=== PATIENT | female | born 1940 | race Caucasian/White ===

== ENCOUNTER 2023-06-21 09:57 | Outpatient (OUT) | payer MEDICARE, SELFPAY ==
--- NOTE | 2023-06-21 09:59 | MM_ITS ---
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 Order #: [id number] CLICK HERE TO VIEW EXAM RADIOLOGY REPORT PROCEDURE: MM TOMOSYNTHESIS SCREENING BI COMPARISON: MG MAMM SCREEN 3D BROOK CAD, 06/03/2022. MG MAMM SCREEN 3D BROOK CAD, 05/10/2021. MG MAMM SCREEN BROOK W CAD, 05/05/2020. MG MAMM BROOK SCRN W CAD DIG, 05/11/2009. INDICATIONS: Z12.31 Calculator Name NCI Breast Cancer Risk Assessment Tool 5 Year Breast Cancer Risk 2.10% Lifetime Breast Cancer Risk 2.50% Personal Breast Cancer No Personal Ovarian Cancer No Treatments None Family Cancers Grandfather-maternal with lung cancer at age ~58. LOCATION: [facility] BREAST COMPOSITION: Heterogeneously dense,which may obscure small masses. FINDINGS: DIAGNOSTIC CATEGORY 2--BENIGN FINDING: RIGHT BREAST: No significant suspicious finding. Scattered benign-appearing calcifications are present. No significant change has occurred. LEFT BREAST: No significant suspicious finding. Scattered benign-appearing calcifications are present. No significant change has occurred. RECOMMENDATIONS: ROUTINE MAMMOGRAM AND CLINICAL EVALUATION IN 12 MONTHS. PLEASE NOTE: A NORMAL MAMMOGRAM DOES NOT EXCLUDE THE POSSIBILITY OF BREAST CANCER. A CLINICALLY SUSPICIOUS PALPABLE LUMP SHOULD BE BIOPSIED. Dictated by: Toribio Walker M.D. on 06/22/2023 at 14:20 Approved by: Toribio Walker M.D. on 06/22/2023 at 14:37
== END 2023-06-21 09:58 | disposition home or self-care (01) ==
LOC: MAMMO 09:58
PROVIDERS: PCP Family Medicine; Visit Provider Nurse Practitioner
DX: Z12.31 Encounter for screening mammogram for malignant neoplasm of breast (principal); Z80.1 Family history of malignant neoplasm of trachea, bronchus and lung
CPT/HCPCS: 77063; 77067

== ENCOUNTER 2023-07-07 07:47 | Outpatient (OUT) | payer MEDICARE, SELFPAY ==
[2023-07-07 08:10] LABS: Basophils Absolute Auto 0.1 10^3/uL (0.0-0.1); Basophils Percent Auto 1.1 % (0.2-2.0); Eosinophils Absolute Auto 0.2 10^3/uL (0.0-0.7); Eosinophils Percent Auto 3.9 % (0.9-7.0); Hematocrit 41.8 % (36.0-48.0); Hemoglobin 13.6 g/dL (12.0-16.0); Immature Granulocytes Abs Auto 0.01 10^3/uL (0.00-0.03); Immature Granulocytes Pct Auto 0.2 % (0.0-0.5); Lymphocytes Absolute Auto 1.2 10^3/uL (1.2-3.8); Lymphocytes Percent Auto 26.7 % (20.5-60.0); Mean Corpuscular HGB Conc 32.5 g/dL (29.9-35.2); Mean Corpuscular Hemoglobin 30.2 pg (26.7-34.0); Mean Corpuscular Volume 92.9 fL (81.0-99.0); Mean Platelet Volume 9.8 fL (9.5-13.5); Monocytes Absolute Auto 0.4 10^3/uL (0.3-0.8); Monocytes Percent Auto 8.7 % (1.7-12.0); Neutrophils Absolute Auto 2.6 10^3/uL (1.4-6.5); Neutrophils Percent Auto 59.4 % (43.0-75.0); Platelet Count 313 10^3/uL (150-450); Red Cell Distribution Width 12.4 % (11.0-15.0); White Blood Count 4.4 10^3/uL (4.0-11.0)
[2023-07-07 09:11] LABS: Alanine Aminotransferase 26 U/L (14-59); Albumin Level 3.6 g/dL (3.4-5.0); Alkaline Phosphatase 66 U/L (46-116); Anion Gap 11.6; Aspartate Amino Transferase 19 U/L (15-37); BUN Creatinine Ratio 24.2; Bilirubin Total 0.4 mg/dL (0.2-1.0); Calcium 9.5 mg/dL (8.5-10.1); Carbon Dioxide 31.6 mmol/L (21.0-32.0); Chloride 102 mmol/L (98-107); Estimated GFR (African America >60 (>=60); Estimated GFR (Non-African Ame 56 (>=60); Globulin 3.7 g/dL; Glucose 96 mg/dL (74-106); Potassium 4.2 mmol/L (3.5-5.1); Sodium 141 mmol/L (136-145); Total Protein 7.3 g/dL (6.4-8.2)
== END 2023-07-07 07:48 | disposition home or self-care (01) ==
LOC: LAB 07:48
PROVIDERS: PCP Family Medicine; Visit Provider Nurse Practitioner
DX: K21.9 Gastro-esophageal reflux disease without esophagitis (principal); M81.0 Age-related osteoporosis without current pathological fracture
CPT/HCPCS: 36415; 80053; 82306; 85025

== ENCOUNTER 2023-12-07 11:40 | Outpatient (REF) | payer MEDICARE, SELFPAY ==
[2023-12-07 12:01] LABS: Bilirubin Urine NEGATIVE (NEGATIVE); Blood Urine NEGATIVE (NEGATIVE); Clarity Urine CLEAR (CLEAR); Color Urine YELLOW (YELLOW); Glucose Urine UA NEGATIVE (NEGATIVE); Ketones Urine TRACE mg/dL (NEGATIVE); Leukocyte Esterase Urine TRACE (NEGATIVE); Nitrite Urine NEGATIVE (NEGATIVE); Protein Urine NEGATIVE (NEG/TRACE); Specific Gravity Urine 1.025 (1.005-1.025); Urobilinogen Urine 0.2 EU/dL (0.2-1.0); pH Urine 5.5 (5.0-9.0)
[2023-12-07 12:10] LABS: Urine Microscopic Indicated YES
[2023-12-07 12:15] LABS: Bacteria Urine TRACE #/HPF (NONE SEEN); Mucus Urine SMALL (NONE SEEN); RBC Urine NONE SEEN #/HPF (0-2)
[2023-12-07 12:16] LABS: Calcium Oxalate Crystals Urine FEW; Cast Seen? NONE SEEN #/LPF (NONE SEEN); Crystals Seen? Seen #/HPF (None Seen); Squamous Epithelial Cell Urine FEW #/LPF (NONE/RARE); Urine Culture Indicated ALREADY ORDERED
== END 2023-12-07 11:41 | disposition home or self-care (01) ==
LOC: LAB 11:40
PROVIDERS: PCP Family Medicine; Visit Provider Nurse Practitioner
DX: R30.0 Dysuria (principal)
CPT/HCPCS: 81001; 87086

== ENCOUNTER 2024-07-23 08:35 | Outpatient (OUT) | payer MEDICARE, SELFPAY ==
--- OUTSIDE RECORDS SUMMARY | 2024-07-23 08:39 | XMS_ITS | CCD ---
Author Organization [facility] Care Team Providers Care Physician'S Assistant Name Role Phone AICHHOLZ, EDUCATIONAL ASSISTANT TEACHER WINSTON Admitting Unavailable AICHHOLZ, EDUCATIONAL ASSISTANT TEACHER WINSTON Attending Unavailable NADDR NANCY CALI Primary Care Unavailable [place], DR DIETER Garcia Consulting Unavailable AICHHOLZ, MUSA WINSTON Consulting Unavailable AICHHOLZ, EDUCATIONAL ASSISTANT TEACHER WINSTON Admitting Unavailable AICHHOLZ, EDUCATIONAL ASSISTANT TEACHER WINSTON Attending Unavailable NADERER, DR NANCY Vigil Primary Care Unavailable AICHHOLZ, EDUCATIONAL ASSISTANT TEACHER WINSTON Consulting Unavailable MYRTLE Majano Attending Provider [phone] Brenda Majano Unavailable Brenda Majano Attending Unavailable Brenda Majano Admitting Unavailable AICHHOLZ, WINSTON Attending Unavailable AICHHOLZ, WINSTON Attending Unavailable AICHHOLZ, WINSTON Attending Unavailable ROLY AMAYA Attending Unavailable AICHHOLZ, WINSTON Referring Unavailable AICHHOLZ, WINSTON Attending Unavailable MONIQUE ROLY Attending Unavailable AICHHOLZ, WINSTON Referring Unavailable Allergies Allergy Classification Reported Allergen(s) Allergy Type Date of Onset Reaction(s) Facility (1 source) Amoxicillin Drug Allergy [facility] RxResults Other (1 source) Sulfamethoxazole / Trimethoprim Drug Allergy rash [facility] Other Medications Current Medications Medication Drug Class(es) Dates Sig (Normalized) Sig (Original) ascorbic acid 113 mg / copper gluconate 0.4 mg / docosahexaenoic acid 87.5 mg / eicosapentaenoic acid 163 mg / lutein 2.5 mg / tocopherol acetate 100 unt / zeaxanthin 0.5 mg / zinc oxide 17.4 mg oral capsule (1 source) Vitamin C PreserVision ARE DS 2 - as directed Orally Active Calcium (1 source) Phosphate Binder, Calcium Calcium Active lansoprazole 15 mg delayed release oral capsule (1 source) Proton Pump Inhibitor take 1 capsule by mouth once daily Prevacid 15 MG 1 capsule before a meal Orally Once a day Active loratadine 10 mg oral tablet (1 source) take 1 tablet by mouth once daily Claritin 10 MG 1 tablet Orally Once a day Active Completed/Discontinued Medications Medication Drug Class(es) Dates Sig (Normalized) Sig (Original) Ascorbic Acid / Beta Carotene / cuprous oxide / Lutein / sodium selenate / Vitamin E / Zinc Oxide (1 source) Vitamin C Ocuvite Not-Taking Aspirin (1 source) Platelet Aggregation Inhibitor, Nonsteroidal Anti-inflammatory Drug Baby Aspirin Not-Taking cephalexin 250 mg oral capsule (1 source) Cephalosporin Antibacterial Start: 06-09-2016 take 1 capsule by mouth every six hours Cephalexin 250 MG 1 capsule Orally Four times a day for 10 day(s) Jun, Not-Taking clindamycin 300 mg oral capsule (1 source) Lincosamide Antibacterial Start: 06-11-2016 Clindamycin HCl 300 MG 1 capsule Orally 7 for 7 days Jun, Not-Taking doxycycline monohydrate 100 mg oral tablet (1 source) Tetracycline-class Drug Start: 06-11-2016 take 1 tablet by mouth every twelve hours Doxycycline Monohydrate 100 MG 1 tablet Orally every 12 hrs for 7 days Jun, Not-Taking fluticasone propionate 0.05 mg/actuat metered dose nasal spray (1 source) Corticosteroid take 1 spray(s) nasal route once daily Flonase 50 MCG/ACT 1 spray in each nostril Nasally Once a day Not-Taking Mupirocin (1 source) RNA Synthetase Inhibitor Antibacterial Start: 03-07-2016 Bactroban 2 % 1 application to affected area Externally bid for 7 days Mar, Not-Taking Problems Problem Classification Problem Date Documented Da te Episodic/Chronic Esophageal disorders (4 sources) Gastro-esophageal reflux disease without esophagitis; Translations: [GERD WITHOUT ESOPHAGITIS] Onset: 05-31-2022 Chronic Genitourinary symptoms and ill-defined conditions (1 source) Frequency of micturition; Translations: [FREQUENCY OF MICTURITION] Onset: 06-01-2022 Episodic Other connective tissue disease (1 source) Pain in right foot Episodic Other connective tissue disease (1 source) Calcaneal spur, right foot Episodic Other screening for suspected conditions (not mental disorders or infectious disease) (4 sources) Encounter for screening mammogram for malignant neoplasm of breast; Translations: [ENC SCR MAMMO MALIG NEOPLASM BREAST] Onset: 06-03-2022 Episodic Residual codes; unclassified (1 source) Family history of malignant neoplasm of trachea, bronchus and lung; Translations: [FAM HX MALIG NEOPLSM TRACH BRON LNG] Onset: 06-07-2022 Episodic Unclassified (1 source) Pain in right foot; Translations: [Pain in right foot] Onset: 04-05-2023 Results Test Name Value Interpretation Reference Range Facility XR foot RT min 3V*on 023 XR foot RT min 3V* [place] [address] XRay Report Signed Patient: Melida Lyman MR#: [id number] : 1940 Acct:[id number] Age/Sex: 83 / F ADM Date: 04/05/23 Loc: XDUCLY Room: Type: [facility] Attending Dr: Brenda IRAHETA Copies to: MYRTLE Larson Ordering Provider: MYRTLE Larson Date of Service: 04/05/23 XR/XR foot RT min 3V*: Pain of right heel 3 views right foot plain film COMPARISON:None HISTORY: Right foot pain for 2 days ACUTE FINDINGS: None DEGENERATIVE CHANGE: Mild degeneration with calcaneal spurring and likely incidental accessory navicular SOFT TISSUE FINDINGS: Unremarkable JOINT EFFUSION: None POSTOP CHANGES: None BONE MINERALIZATION: Adequate XR/XR foot RT min 3V* IMPRESSION: Degenerative change. No acute findings. Impression dictated by: Jose Macias M.D.04/05/2023 2:22 PM Dictation Location: [place] [address] Transcribed By: [facility] 04/05/23 142 Dictated By: Jose Macias DO 04/05/23 142 Signed By: 04/05/23 142 Normal [facility] XR foot RT min 3V* [facility] Other XR foot RT min 3V* [facility] Other XR foot RT min 3V* [address] [place] RxResults Other XR foot RT min 3V* GABINO Henriquez [address] RxResults Other XR foot RT min 3V* XRay Report RxResults Other XR foot RT min 3V* Signed RxResults Other XR foot RT min 3V* Patient: Melida Lyman MR#: [id number] RxResults Other XR foot RT min 3V* : 1940 Acct:[id number] RxResults Other XR foot RT min 3V* Age/Sex: 83 / F ADM Date: 04/05/23 [facility] Other XR foot RT min 3V* Loc: XDUCLY Room: Type: [facility] RxResults Other XR foot RT min 3V* Attending Dr: Brenda IRAHETA RxResults Other XR foot RT min 3V* Copies to: MYRTLE Larson [facility] Other XR foot RT min 3V* Ordering Provider: MYRTLE Larson [facility] Other XR foot RT min 3V* Date of Service: 04/05/23 [facility] Other XR foot RT min 3V* XR/XR foot RT min 3V*: Pain of right heel RxResults Other XR foot RT min 3V* 3 views right foot plain film RxResults Other XR foot RT min 3V* COMPARISON:None [employer] Other XR foot RT min 3V* HISTORY: Right foot pain for 2 days RxResults Other XR foot RT min 3V* ACUTE FINDINGS: None RxResults Other XR foot RT min 3V* DEGENERATIVE CHANGE: Mild degeneration with calcaneal spurring and likely incidental accessory Rx[facility] Other XR foot RT min 3V* navicular RxResults Other XR foot RT min 3V* SOFT TISSUE FINDINGS: Unremarkable RxResults Other XR foot RT min 3V* JOINT EFFUSION: None RxResults Other XR foot RT min 3V* POSTOP CHANGES: None RxResults Other XR foot RT min 3V* BONE MINERALIZATION: Adequate RxResults Other XR foot RT min 3V* XR/XR foot RT min 3V* RxResults Other XR foot RT min 3V* IMPRESSION: Degenerative change. No acute findings. RxResults Other XR foot RT min 3V* Impression dictated by: Jose Macias M.D.04/05/2023 2:22 PM RxResults Other XR foot RT min 3V* Dictation Location: [place] [address] RxResults Other XR foot RT min 3V* Transcribed By: PWS 04/05/23 [facility] RxResults Other XR foot RT min 3V* Dictated By: Jose Macias DO 04/05/23 [facility] RxResults Other XR foot RT min 3V* Signed By: RxResults Other XR foot RT min 3V* 04/05/23 [facility] [place] Other MG MAMM SCREEN 3D BROOK CADon 06-03-2022 MG MAMM SCREEN 3D BROOK CAD Patient: MELIDA LYMAN Exam Date: 06/03/2022 : 1940 Gender:F Ordering : MUSA WINSTON [facility] Admission #: [id number] Family : Order #: [id number] CLICK HERE TO VIEW EXAM RADIOLOGY REPORT PROCEDURE: MAMMOGRAM SCREENING 3D BILATERAL CAD COMPARISON: MG MAMM SCREEN 3D BROOK CAD, 05/10/2021. MG MAMM SCREEN BROOK W CAD, 05/05/2020. INDICATIONS: Screening mammography Calculator Name NCI Breast Cancer Risk Assessment Tool 5 Year Breast Cancer Risk 2.20% Lifetime Breast Cancer Risk 2.90% Personal Breast Cancer No Personal Ovarian Cancer No Treatments None Family Cancers Grandfather-maternal with lung cancer at age 58. LOCATION: [facility] BREAST COMPOSITION: Heterogeneously dense,which may obscure small masses. FINDINGS: DIAGNOSTIC CATEGORY 2--BENIGN FINDING. NO CHANGE FROM COMPARISON. Scattered benign-appearing calcifications are present. Scattered benign-appearing lymph nodes are present. RIGHT BREAST: No significant suspicious finding. LEFT BREAST: No significant suspicious finding. RECOMMENDATIONS: ROUTINE MAMMOGRAM AND CLINICAL EVALUATION IN 12 MONTHS. PLEASE NOTE: A NORMAL MAMMOGRAM DOES NOT EXCLUDE THE POSSIBILITY OF BREAST CANCER. A CLINICALLY SUSPICIOUS PALPABLE LUMP SHOULD BE BIOPSIED. Dictated by: Dieter Cannon MD on 06/03/2022 at 13:39 Approved by: Dieter Cannon MD on 06/03/2022 at 13:40 [facility] CBC AUTO DIFFon 05-31-2022 BASO # 0.0 103/ul Normal 0.0-0.1 [facility] Comment on above: Performed By: #### C BC #### [facility] [address] [place] [address] Dr. Kendall Rachel Basophils/100 WBC (Bld) 1.0 % Normal 0.2-2.0 [facility] Comment on above: Performed By: #### C BC #### [facility] [address] [place] [address] Dr. Kendall Rachel EO # 0.1 103/ul Normal 0.0-0.7 [facility] Comment on above: Performed By: #### C BC #### [facility] [address] [place] [address] Dr. Kendall Rachel Eosinophils/100 WBC (Bld) 2.6 % Normal 0.9-7.0 [facility] Comment on above: Performed By: #### C BC #### [facility] [address] [place] [address] Dr. Kendall Rachel Erythrocyte distribution width (RBC) [Ratio] 12.9 % Normal 11.0-15.0 [facility] Comment on above: Performed By: #### C BC #### [facility] [address] [place] [address] Dr. Kendall Rachel Hematocrit (Bld) [Volume fraction] 40.3 % Normal 36.0-48.0 [facility] Comment on above: Performed By: #### C BC #### [facility] [address] [place] [address] Dr. Kendall Rachel Hemoglobin (Bld) [Mass/Vol] 13.1 g/dL Normal 12.0-16.0 [facility] Comment on above: Performed By: #### C BC #### [facility] [address] [place] [address] Dr. Kendall Rachel IG # 0.01 10e3/ul Normal 0.00-0.03 [facility] Comment on above: Performed By: #### C BC #### [facility] [address] [place] [address] Dr. Kendall Rachel IG % 0.2 % Normal 0.0-0.5 [facility] Comment on above: Performed By: #### C BC #### [facility] [address] [place] [address] Dr. Kendall Rachel LYMPH # 1.0 103/ul Critically low 1.2-3.8 [facility] Comment on above: Performed By: #### C BC #### [facility] [address] [place] [address] Dr. Kendall Rachel Lymphocytes/100 WBC (Bld) 23.9 % Normal 20.5-60.0 [facility] Comment on above: Performed By: #### C BC #### [facility] [address] [place] [address] Dr. Kendall Rachel MANUAL DIFF REQ NO Normal [facility] Comment on above: Performed By: #### C BC #### [facility] [address] [place] [address] Dr. Kendall Rachel MCH (RBC) [Entitic mass] 29.8 pg Normal 26.7-34.0 [facility] Comment on above: Performed By: #### C BC #### [facility] [address] [place] [address] Dr. Kendall Rachel MCHC (RBC) [Mass/Vol] 32.5 g/dL Normal 29.9-35.2 [facility] Comment on above: Performed By: #### C BC #### [facility] [address] [place] [address] Dr. Kendall Rachel MCV (RBC) [Entitic vol] 91.8 fL Normal 81.0-99.0 [facility] Comment on above: Performed By: #### C BC #### [facility] [address] [place] [address] Dr. Kendall Rachel MONO # 0.4 103/ul Normal 0.3-0.8 [facility] Comment on above: Performed By: #### C BC #### [facility] [address] [place] [address] Dr. Kendall Rachel Monocytes/100 WBC (Bld) 8.6 % Normal 1.7-12.0 [facility] Comment on above: Performed By: #### C BC #### [facility] [address] [place] [address] Dr. Kendall Rachel NEUT # 2.7 103/ul Normal 1.4-6.5 [facility] Comment on above: Performed By: #### C BC #### [facility] [address] [place] [address] Dr. Kendall Rachel Neutrophils/100 WBC (Bld) 63.7 % Normal 43.0-75.0 [facility] Comment on above: Performed By: #### C BC #### [facility] [address] [place] [address] Dr. Kendall Rachel Platelet mean volume (Bld) [Entitic vol] 10.9 fL Normal 9.5-13.5 [facility] Comment on above: Performed By: #### C BC #### [facility] [address] [place] [address] Dr. Kendall Rachel PLT 300 103/ul Normal 150-450 [facility] Comment on above: Performed By: #### C BC #### [facility] [address] [place] [address] Dr. Kendall Rachel RBC 4.39 106/ul Normal 4.20-5.40 [facility] Comment on above: Performed By: #### C BC #### [facility] [address] [place] [address] Dr. Kendall Rachel WBC 4.2 103/ul Normal 4.0-11.0 [facility] Comment on above: Performed By: #### C BC #### [facility] [address] [place] [address] Dr. Kendall Rachel PROF 14(COMP METB)on 022 Albumin [Mass/Vol] 3.6 g/dL Normal 3.4-5.0 [facility] Comment on above: Performed By: #### C MP #### [facility] [address] [place] [address] Dr. Kendall Rachel Albumin/Globulin [Mass ratio] 1.1 {ratio} Normal [facility] Comment on above: Performed By: #### C MP #### [facility] [address] [place] [address] Dr. Kendall Rachel ALP [Catalytic activity/Vol] 74 U/L Normal 46-116 [facility] Comment on above: Performed By: #### C MP #### [facility] [address] [place] [address] Dr. Kendall Rachel ALT [Catalytic activity/Vol] 33 U/L Normal 14-59 [facility] Comment on above: Performed By: #### C MP #### [facility] [address] [place] [address] Dr. Kendall Rachel Anion gap [Moles/Vol] 10.3 mmol/L [facility] Comment on above: Performed By: #### C MP #### [facility] [address] [place] [address] [address] Kendall Rachel AST [Catalytic activity/Vol] 20 U/L Normal 15-37 [facility] Comment on above: Performed By: #### C MP #### [facility] [address] [place] [address] [address] Kendall Rachel Bilirubin [Mass/Vol] 0.4 mg/dL Normal 0.2-1.0 [facility] Comment on above: Performed By: #### C MP #### [facility] [address] [place] [address] [address] Kendall Rachel Calcium [Mass/Vol] 9.3 mg/dL Normal 8.5-10.1 [facility] Comment on above: Performed By: #### C MP #### [facility] [address] [place] [address] Dr. Kendall Rachel Chloride [Moles/Vol] 103 mmol/L Normal 98-107 [facility] Comment on above: Performed By: #### C MP #### [facility] [address] [place] [address] [address] Kendall Rachel CO2 [Moles/Vol] 30.8 mmol/L Normal 21.0-32.0 [facility] Comment on above: Performed By: #### C MP #### [facility] [address] [place] [address] Dr. Kendall Rachel Creatinine [Mass/Vol] 0.87 mg/dL Normal 0.55-1.02 [facility] Comment on above: Performed By: #### C MP #### [facility] [address] [place] [address] [address] Kendall Rachel EGFR-AF SURINAMESE >60 Normal >=60 [facility] Comment on above: Performed By: #### C MP #### [facility] [address] [place] [address] Dr. Kendall Rachel EGFR-NON AF SURINAMESE >60 Normal >=60 [facility] Comment on above: Performed By: #### C MP #### [facility] [address] [place] [address] Dr. Kendall Rachel Globulin (S) [Mass/Vol] 3.4 g/dL Normal [facility] Comment on above: Performed By: #### C MP #### [facility] [address] [address] [address] Kendall Rachel Glucose [Mass/Vol] 100 mg/dL Normal 74-106 [facility] Comment on above: Performed By: #### C MP #### [facility] [address] [address] [address] Kendall Rachel Potassium [Moles/Vol] 4.1 mmol/L Normal 3.5-5.1 [facility] Comment on above: Performed By: #### C MP #### [facility] [address] [address] [address] Kendall Rachel Protein [Mass/Vol] 7.0 g/dL Normal 6.4-8.2 [facility] Comment on above: Performed By: #### C MP #### [facility] [address] [address] [address] Kendall Rachel Sodium [Moles/Vol] 140 mmol/L Normal 136-145 [facility] Comment on above: Performed By: #### C MP #### [facility] [address] [place] [address] Dr. Kendall Rachel Urea nitrogen [Mass/Vol] 23.0 mg/dL Critically high 7.0-18.0 [facility] Comment on above: Performed By: #### C MP #### [facility] [address] [address] [address] Kendall Rachel Urea nitrogen/Creatinin e [Mass ratio] 26.4 mg/mg [facility] Comment on above: Performed By: #### C MP #### [facility] [address] [place] [address] Dr. Kendall Rachel UA RANDOM W/MICROSCOPICon BACTERIA NONE SEEN Normal NONE SEEN [facility] Comment on above: Performed By: #### U AMIC #### [facility] [address] [place] [address] Dr. Kendall Rachel Bilirubin Ql (U) Negative Normal NEGATIVE [facility] Comment on above: Performed By: #### U AMIC #### [facility] [address] [place] [address] Dr. Kendall Rachel CAST NONE SEEN Normal NONE SEEN [facility] Comment on above: Performed By: #### U AMIC #### [facility] [address] [address] [address] Kendall Rachel Clarity (U) CLEAR Normal CLEAR [facility] Comment on above: Performed By: #### U AMIC #### [facility] [address] [address] [address] Kendall Rachel Color (U) YELLOW Normal YELLOW [facility] Comment on above: Performed By: #### U AMIC #### [facility] [address] [place] [address] Dr. Kendall Rachel Crystals LM Nom (Urine sed) NONE SEEN Normal NONE SEEN [facility] Comment on above: Performed By: #### U AMIC #### [facility] [address] [place] [address] Dr. Kendall Rachel Epithelial cells LM Ql (Urine sed) RARE Normal NONE SEEN /RARE [facility] Comment on above: Performed By: #### U AMIC #### [facility] [address] [place] [address] Dr. Kendall Rachel Glucose Ql (U) Negative Normal NEGATIVE [facility] Comment on above: Performed By: #### U AMIC #### [facility] [address] [address] [address] Kendall Rachel Hemoglobin Ql (U) Negative Normal NEGATIVE [facility] Comment on above: Performed By: #### U AMIC #### [facility] [address] [address] [address] Kendall Rachel Ketones Ql (U) Negative Normal NEGATIVE [facility] Comment on above: Performed By: #### U AMIC #### [facility] [address] [place] [address] Dr. Kendall Rachel LEUKOCYTES TRACE Abnormal NEGATIVE [facility] Comment on above: Performed By: #### U AMIC #### [facility] [address] [address] [address] Kendall Rachel MUCOUS TRACE Abnormal NONE SEEN [facility] Comment on above: Performed By: #### U AMIC #### [facility] [address] [address] [address] Kendall Rachel Nitrite Ql (U) Negative Normal NEGATIVE [facility] Comment on above: Performed By: #### U AMIC #### [facility] [address] [address] [address] Kendall Rachel pH (U) 7.0 [pH] Normal 5-9 [facility] Comment on above: Performed By: #### U AMIC #### [facility] [address] [place] [address] Dr. Kendall Rachel RBC 0-2 Normal 0-2 [facility] Comment on above: Performed By: #### U AMIC #### [facility] [address] [place] [address] Dr. Kendall Rachel SPEC GRAVITY 1.010 Normal 1.005-<=1.025 [facility] Comment on above: Performed By: #### U AMIC #### [facility] [address] [place] [address] Dr. Kendall Rachel UA PROTEIN Negative Normal NEGATIVE/ TRACE [facility] Comment on above: Performed By: #### U AMIC #### [facility] [address] [place] [address] Dr. Kendall Rachel Urobilinogen Qn (U) 0.2 {Sagrario'U}/dL Normal 0.2 - 1.0 [facility] Comment on above: Performed By: #### U AMIC #### [facility] [address] [place] [address] Dr. Kendall Rachel WBC 0-2 Abnormal NONE SEEN [facility] Comment on above: Performed By: #### U AMIC #### [facility] [address] [place] [address] Dr. Kendall Rachel Vital Signs Date Time Vital Sign Value Performing Clinician Facility 04-05-2023 13:35-0400 Body height 144.78 cm Brenda Juarez [facility] Other 04-05-2023 13:35-0400 Body mass index (BMI) [Ratio] 24.67 kg/m2 Brenda Majano Other [facility] Other 04-05-2023 13:35-0400 Body temperature 97.6 [degF] Brenda Majano Other [facility] Other 04-05-2023 13:35-0400 Body weight 51.71 kg Brenda Majano Other [facility] Other 04-05-2023 13:35-0400 Diastolic blood pressure 79 mm[Hg] Brenda Majano Other [facility] Other 04-05-2023 13:35-0400 Respiratory rate 18 /min Brenda Majano Other [facility] Other 04-05-2023 13:35-0400 SaO2% (BldA) [Mass fraction] 98 % Brenda Majano Other [facility] Other 04-05-2023 13:35-0400 Systolic blood pressure 171 mm[Hg] Brenda Majano Other [facility] Other Encounters Encounter Date Encounter Type Care Provider Facility Start: 01-19-2024 End: 01-19-2024 ambulatory ROLY AMAAY Not Available Start: 01-17-2024 End: 01-17-2024 ambulatory WINSTON AICHHOLZ Not Available Start: 01-05-2024 End: 01-05-2024 ambulatory ROLY AMAYA Not Available Start: 12-27-2023 End: 12-27-2023 ambulatory WINSTON AICHHOLZ Not Available Start: 12-13-2023 End: 12-13-2023 ambulatory WINSTON PACHECO Not Available Start: 12-05-2023 End: 12-05-2023 ambulatory WINSTON PACHECO Not Available Start: 04-05-2023 End: 04-05-2023 ambulatory Brenda Gretel Facility:[facility] Start: 04-05-2023 End: 04-05-2023 Patient encounter procedure INSIDE CHANNEL ACCOUNT MANAGER-C Brenda Majano Work Phone: [facility] Work Phone: Start: 04-05-2023 End: 04-05-2023 ambulatory INSIDE CHANNEL ACCOUNT MANAGER-C Brenda Gretel Work Phone: [facility] Work Phone: Start: 04-05-2023 Office outpatient ne w 20 minutes Brenda Majano [facility] Start: 06-03-2022 End: 06-04-2022 ambulatory EDUCATIONAL ASSISTANT TEACHER WINSTON PACHECO Facility:[facility] Start: 05-31-2022 End: 06-01-2022 ambulatory EDUCATIONAL ASSISTANT TEACHER WINSTON PACHECO Facility:[facility] Procedures Date Procedure Procedure Detail Performing Clinician Start: 04-05-2023 X-ray of right foot INSIDE CHANNEL ACCOUNT MANAGER- C Brenda Majano Work Phone: Immunizations Immunization Date Immunization Notes Care Provider Sudhakar ibrahim 06-11-2016 tetanus toxoid, reduced diphtheria toxoid, and acellular pertussis vaccine, adsorbed Brenda Majano Other [facility] Other Payers Date Payer Category Payer Medicare [id number] 2023 Self-pay 1959 Unknown [id number] 1940 Unknown [id number] 2.16.84 [id number] 1940 Unknown [id number] 2.16.84 [id number] 1940 Unknown [id number] 2.16.84 [id number] 1940 Unknown [id number] 2.16.84 [id number] 1940 Unknown [id number] 2.16.84 [id number] 1940 Unknown [id number] 2.16.84 [id number] 1940 Unknown [id number] [id number] [id number] 1940 Unknown [id number] [id number] [id number] Unknown [id number] Social History Date Type Detail Facility Tobacco smoking status NHIS Unknown if ever smoked [facility] Work Phone: Start: 1940 Sex Assigned At Female F [facility] Sex Assigned At Sex Assigned At Bir th RxResults Other Evaluation note 04-05-2023 Note Date & Type Note Facility 04-05-2023 Evaluation note Encounter Date Diagnosis Assessment Notes Apr, Pain of right heel (ICD-10 - M79.671) Apr, Calcaneal spur of right foot (ICD-10 - M77.31) Drink plenty fluids, get plenty of rest. Take Tylenol as needed for pain. Consider rolling your foot on a bottle of frozen water for comfort. Put an extra pad in the heel of your right shoe. 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 if no improvement in 5 to 7 days Apr, Other Calcaneal Spur material was printed RxResults Other Evaluation note Note Date & Type Note Facility Evaluation note No assessment information availa ble [facility] Work Phone: History general Narrative - Reported Note Date & Type Note Facility History general Narrative - Reported Type Medical History GERD (gastroesophageal reflux di sease) Medical History Seasonal allergic rhinitis Surgical History C section Surgical History hysterectomy RxResults Other Summary Purpose Family History No Family History Records FoundNo Family History Records FoundNo Family History Records Found Advance Directives No Advanced Directives Records FoundNo Advanced Directives Records FoundNo Advanced Directives Records Found Additional Source Comments INFORMATION SOURCE (unrecogn ized section and content) DATE CREATED AUTHOR 06/07/2022 [facility] DATE CREATED AUTHOR AUTHOR'S ORGANIZ ATION 05/27/2023 [facility] DATE CREATED AUTHOR AUTHOR'S ORGANIZ ATION 01/20/2024 [facility] [employer] Care Teams (unrecognized sec tion and content) Team Status: Inactive Member Role Status Dates MAGO LucasC Attending Provider Active Goals (unrecognized section and content) Goals may be documented in a n alternate sectionNo Information REASON FOR VISIT (unrecogniz ed section and content) right ankle, bottom of foot pain, walk alot FOR RECORDS PERTAINING TO PATIENTS WHO ARE OR HAVE BEEN ENROLLED IN A CHEMICAL DEPENDENCY/SUBSTANCEABUSE PROGRAM, SOME INFORMATION MAY BE OMITTED. This clinical summary was aggregated from multiple sources. Caution should be exercised in using it in the provision of clinical care. This summary normalizes information from multiple sources, and as a consequence, information in this document may materially change the coding, format and clinical context of patient data. In addition, data may be omitted in some cases. CLINICAL DECISIONS SHOULD BE BASED ON THE PRIMARY CLINICAL RECORDS. [employer] provides no warranty or guarantee of the accuracy or completeness of information in this document.
--- NOTE | 2024-07-23 08:40 | MM_ITS ---
Patient Name: PIPPA FELIPE MR#: [id number] : 1940 Exam Date: 07/23/2024 Ordering Doctor: MUSA Michelle CNP RADIOLOGY REPORT PROCEDURE: MM TOMOSYNTHESIS SCREENING BI COMPARISON: MG MAMM SCREEN 3D BROOK CAD, 06/03/2022. MM TOMOSYNTHESIS SCREENING BI, 06/21/2023. INDICATIONS: Screening Calculator Name NCI Breast Cancer Risk Assessment Tool 5 Year Breast Cancer Risk 1.90% Lifetime Breast Cancer Risk 2.20% Personal Breast Cancer No Personal Ovarian Cancer No Treatments None Family Cancers Grandfather-maternal with lung cancer at age ~58. LOCATION: [facility] BREAST COMPOSITION: The breasts are heterogeneously dense,which may obscure small masses. FINDINGS: DIAGNOSTIC CATEGORY 2--BENIGN FINDING. NO CHANGE FROM COMPARISON. Scattered benign-appearing nodules are present. Scattered benign-appearing calcifications are present. Scattered benign-appearing lymph nodes are present. RIGHT BREAST: No significant suspicious finding. LEFT BREAST: No significant suspicious finding. RECOMMENDATIONS: ROUTINE MAMMOGRAM AND CLINICAL EVALUATION IN 12 MONTHS. PLEASE NOTE: A NORMAL MAMMOGRAM DOES NOT EXCLUDE THE POSSIBILITY OF BREAST CANCER. A CLINICALLY SUSPICIOUS PALPABLE LUMP SHOULD BE BIOPSIED. Dictated by: Herbert Cannon MD on 07/23/2024 at 11:11 Approved by: Herbert Cannon MD on 07/23/2024 at 11:12
== END 2024-07-23 08:36 | disposition home or self-care (01) ==
LOC: MAMMO 08:36
PROVIDERS: PCP Family Medicine; Visit Provider Nurse Practitioner
DX: Z12.31 Encounter for screening mammogram for malignant neoplasm of breast (principal); Z80.1 Family history of malignant neoplasm of trachea, bronchus and lung
CPT/HCPCS: 77063; 77067

== ENCOUNTER 2024-07-26 08:03 | Outpatient (OUT) | payer MEDICARE, SELFPAY ==
--- OUTSIDE RECORDS SUMMARY | 2024-07-26 08:12 | XMS_ITS | CCD ---
Author Organization [facility] Care Team Providers Care Mounter Automatic Name Role Phone AICHHOLZ, DRYWALL HANGER FRAMER ROSEMARY Admitting Unavailable AICHHOLZ, DRYWALL HANGER FRAMER ROSEMARY Attending Unavailable DR NANCY LOVELACE Primary Care Unavailable WEST, DR DIETER Garcia Consulting Unavailable AICHHOLZ, DRYWALL HANGER FRAMER ROSEMARY Consulting Unavailable AICHHOLZ, DRYWALL HANGER FRAMER ROSEMARY Admitting Unavailable AICHHOLZ, DRYWALL HANGER FRAMER ROSEMARY Attending Unavailable NADEREDR NANCY Jenkins Primary Care Unavailable AICHHOLZ, DRYWALL HANGER FRAMER ROSEMARY Consulting Unavailable MYRTLE Majano Attending Provider Brenda Majano Unavailable Brenda Majano Attending Unavailable Gretel, Brenda Admitting Unavailable Aichholz MD OPHTHALMOLOGIST, Rosemary Unavailable Aichholz MD OPHTHALMOLOGIST, Rosemary Unavailable Unallocated , Noms Provider Primary Care Provi bruno AICHHOLZ, ROSEMARY Attending Unavailable AICHHOLZ, ROSEMARY Attending Unavailable AICHHOLZ, ROSEMARY Attending Unavailable ROLY AMAYA Attending Unavailable AICHHOLZ, ROSEMARY Referring Unavailable AICHHOLZ, ROSEMARY Attending Unavailable ESTHER AAMYAA Attending Unavailable AICHHOLZ, ROSEMARY Referring Unavailable AICHHOLZ, ROSEMARY Attending Unavailable Allergies Allergy Classification Reported Allergen(s) Allergy Type Date of Onset Reaction(s) Facility (4 sources) Amoxicillin Drug Allergy 4 rash, Hives [facility] (4 sources) Sulfamethoxazole / Trimethoprim Drug Allergy 4 rash, Hives [facility] [facility] Other Medications Current Medications Medication Drug Class(es) Dates Sig (Normalized) Sig (Original) ascorbic acid 113 mg / copper gluconate 0.4 mg / docosahexaenoic acid 87.5 mg / eicosapentaenoic acid 163 mg / lutein 2.5 mg / tocopherol acetate 100 unt / zeaxanthin 0.5 mg / zinc oxide 17.4 mg oral capsule (4 sources) Vitamin C Multiple Vitamins-Minerals (PreserVision AREDS 2) capsule as directed Orally Active PreserVision ARE DS 2 - as directed Orally Active azithromycin 250 mg oral tablet (2 sources) Macrolide Antimicrobial Start: 07-23-2024 azithromycin (Zithromax) 250 MG tablet Indications: Subacute frontal sinusitis 2 pills day #1, and then 1 pill day #2-#5 6 tablet 07/23/2024 Active Start: 07-23-2024 azithromycin ( Zithromax) 250 MG tablet Indications: Subacute frontal sinusitis 2 pills day #1, and then 1 pill day #2-#5 6 tablet 07/23/2024 Active Calcium (1 source) Phosphate Binder, Calcium Calciu m Active calcium carbonate 1500 mg oral tablet (3 sources) calcium carbonat e (Super Calcium) 1500 (600 Ca) MG tablet every 12 (twelve) hours Active clobetasol propionate 0.5 mg/ml topical cream (3 sources) Corticosteroid clobetasol (Deric vate) 0.05 % cream Apply 1 Application topically every 12 (twelve) hours Active ibuprofen 200 mg oral tablet (3 sources) Nonsteroidal Anti-inflammatory Drug ibuprofen 200 MG tablet every 12 (twelve) hours Active lansoprazole 15 mg delayed release oral capsule (4 sources) Proton Pump Inhibitor lansoprazo le (Prevacid) [address] capsule 1 (one) time each day at the same time Active loratadine 10 mg oral tablet (4 sources) loratadine (Clar itin) 10 MG tablet 1 (one) time each day at the same time Active Completed/Discontinued Medications Medication Drug Class(es) Dates [...] bid for 7 days Mar, Not-Taking Problems Active Problems Problem Classification Problem Date Documented Date Episodic/Chronic Esophageal disorders (9 sources) Gastro-esophageal reflux disease without esophagitis; Translations: [Gastroesophageal reflux disease without esophagitis] Onset: 05-31-2022 Chronic Genitourinary symptoms and ill-defined conditions (5 sources) Incontinence; Translations: [Mixed incontinence] Onset: 12-13-2023 12-13-2023 Chronic Immunizations and screening for infectious disease (4 sources) Needs influenza immunization; Translations: [Encounter for immunization] Onset: 07-23-2024 07-23-2024 Episodic Osteoporosis (5 sources) Senile osteoporosis; Translations: [Age-related osteoporosis without current pathological fracture] Onset: 12-13-2023 12-13-2023 Chronic Other connective tissue disease (1 source) Pain in right foot Episodic Other connective tissue disease (1 source) Calcaneal spur, right foot Episodic Other screening for suspected conditions (not mental disorders or infectious disease) (4 sources) Encounter for screening mammogram for malignant neoplasm of breast; Translations: [ENC SCR MAMMO MALIG NEOPLASM BREAST] Onset: 06-03-2022 Episodic Other upper respiratory disease (3 sources) Chronic rhinitis; Translations: [Chronic rhinitis] Onset: 12-13-2023 12-13-2023 Chronic Other upper respiratory infections (7 sources) Acute pansinusitis; Translations: [Acute pansinusitis, unspecified] Onset: 12-27-2023 Resolved: 07-23-2024 07-23-2024 Episodic Residual codes; unclassified (1 source) Family history of malignant neoplasm of trachea, bronchus and lung; Translations: [FAM HX MALIG NEOPLSM TRACH BRON LNG] Onset: 06-07-2022 Episodic Retinal detachments; defects; vascular occlusion; and retinopathy (3 sources) Degenerative disorder of macula ; Translations: [Unspecified macular degeneration] Onset: 12-13-2023 12-13-2023 Chronic Spondylosis; intervertebral disc disorders; other back problems (3 sources) Degeneration of cervical intervertebral disc; Translations: [Other cervical disc degeneration, unspecified cervical region] Onset: 12-13-2023 12-13-2023 Chronic Unclassified (1 source) Pain in right foot; Translations: [Pain in right foot] Onset: 04-05-2023 Past or Other Problems Problem Classification Problem Date Documented Da te Episodic/Chronic Genitourinary symptoms and ill-defined conditions (4 sources) Frequency of micturition; Translations: [Dysuria] Onset: 06-01-2022 12-05-2023 Episodic Mood disorders (2 sources) Mood disorders Onset: 07-23-2024 07-23-2024 Other female genital disorders (3 sources) Leukoplakia of vulva; Translations: [Circumscribed scleroderma] Onset: 12-13-2023 12-13-2023 Episodic Sprains and strains (6 sources) Strain of left trapezius muscle; Translations: [Strain of other muscles, fascia and tendons at shoulder and upper arm level, left arm, subsequent encounter] Onset: 12-05-2023 Resolved: 12-13-2023 12-13-2023 Episodic Results Test Name Value Interpretation Reference Range Facility XR foot RT min 3V*on 023 XR foot RT min 3V* [facility] [address] XRay Report Signed Patient: Melida Lyman MR#: [id number] : 1940 Acct:[id number] Age/Sex: 83 / F ADM Date: 04/05/23 Loc: XDUCLY Room: Type: [facility] Attending Dr: Brenda MERCEDESC Copies to: MYRTLE Larson Ordering Provider: MYRTLE [...] Jose Macias M.D.04/05/2023 2:22 PM Dictation Location: [place] [address] Transcribed By: [facility] 04/05/23 142 Dictated By: Jose Macias DO 04/05/23 142 Signed By: 04/05/23 142 [facility] XR foot RT min 3V* [facility] [employer] Other XR foot RT min 3V* [facility] [employer] Other XR foot RT min 3V* [address] [place] [address] [employer] Other XR foot RT min 3V* [place] [address] [employer] Other XR foot RT min 3V* XRay Report [facility] Other XR foot RT min 3V* Signed [facility] Other XR foot RT min 3V* Patient: Melida Lyman MR#: [id number] [facility] Other XR foot RT min 3V* : 1940 Acct:[id number] [facility] Other XR foot RT min 3V* Age/Sex: 83 / F ADM Date: 04/05/23 [facility] Other XR foot RT min 3V* Loc: XDUCLY Room: Type: [facility] [employer] Other XR foot RT min 3V* Attending Dr: Brenda IRAHETA [facility] Other XR foot RT min 3V* Copies to: MYRTLE Larson [facility] Other XR foot RT min 3V* Ordering Provider: MYRTLE Larson [facility] Other XR foot RT min 3V* Date of Service: 04/05/23 [facility] Other XR foot RT min 3V* XR/XR foot RT min 3V*: Pain of right heel [employer] Other XR foot RT min 3V* 3 views right foot plain film [employer] Other XR foot RT min 3V* COMPARISON:None [place] [employer] Other XR foot RT min 3V* HISTORY: Right foot pain for 2 days [employer] Other XR foot RT min 3V* ACUTE FINDINGS: None [employer] Other XR foot RT min 3V* DEGENERATIVE CHANGE: Mild degeneration with calcaneal spurring and likely incidental accessory [employer] Other XR foot RT min 3V* navicular [facility] Other XR foot RT min 3V* SOFT TISSUE FINDINGS: Unremarkable [employer] Other XR foot RT min 3V* JOINT EFFUSION: None [employer] Other XR foot RT min 3V* POSTOP CHANGES: None [employer] Other XR foot RT min 3V* BONE MINERALIZATION: Adequate [facility] Other XR foot RT min 3V* XR/XR foot RT min 3V* [employer] Other XR foot RT min 3V* IMPRESSION: Degenerative change. No acute findings. [facility] Other XR foot RT min 3V* Impression dictated by: Jose Macias M.D.04/05/2023 2:22 PM [facility] Other XR foot RT min 3V* Dictation Location: [place] [address] [employer] Other XR foot RT min 3V* Transcribed By: PWS 04/05/23 [facility] [employer] Other XR foot RT min 3V* Dictated By: Jose Macias DO 04/05/23 [facility]0 [employer] Other XR foot RT min 3V* Signed By: [employer] Other XR foot RT min 3V* 04/05/[address] [place] [address] [employer] Other MG MAMM SCREEN 3D BROOK CADon 06-03-2022 MG MAMM SCREEN 3D BROOK CAD Patient: MELIDA LYMAN Exam Date: 06/03/2022 : 1940 Gender:F Ordering : MUSA MICHELLE [facility] Admission #: [id number] Family : Order #: [id number] CLICK HERE TO VIEW EXAM RADIOLOGY REPORT [...] lung cancer at age 58. LOCATION: [facility] BREAST COMPOSITION: Heterogeneously dense,which may obscure [...] Cannon MD on 06/03/2022 at 13:40 Normal [facility] CBC AUTO DIFFon 05-31-2022 BASO # 0.0 103/ul Normal 0.0-0.1 [facility] Comment on above: Performed By: #### C BC #### [facility] [address] [place] [address] Dr. Kendall Rachel Basophils/100 WBC (Bld) 1.0 % Normal 0.2-2.0 [facility] Comment on above: Performed By: #### C BC #### [facility] [address] [place] [address] Dr. Kendall Rachel EO # 0.1 103/ul Normal 0.0-0.7 [facility] Comment on above: Performed By: #### C BC #### [facility] [address] [place] [address] Dr. Kendall Rachel Eosinophils/100 WBC (Bld) 2.6 % Normal 0.9-7.0 [facility] Comment on above: Performed By: #### C BC #### [facility] [address] [place] [address] Dr. Kendall Rachel Erythrocyte distribution width (RBC) [Ratio] 12.9 % Normal 11.0-15.0 [facility] Comment on above: Performed By: #### C BC #### [facility] [address] [place] [address] Dr. Kendall Rachel Hematocrit (Bld) [Volume fraction] 40.3 % Normal 36.0-48.0 [facility] Comment on above: Performed By: #### C BC #### [facility] [address] [place] [address] Dr. Kendall Rachel Hemoglobin (Bld) [Mass/Vol] 13.1 g/dL Normal 12.0-16.0 [facility] Comment on above: Performed By: #### C BC #### [facility] [address] [place] [address] Dr. Kendall Rachel IG # 0.01 10e3/ul Normal 0.00-0.03 [facility] Comment on above: Performed By: #### C BC #### [facility] [address] [place] [address] Dr. Kendall Rachel IG % 0.2 % Normal 0.0-0.5 [facility] Comment on above: Performed By: #### C BC #### [facility] [address] [place] [address] Dr. Kendall Rachel LYMPH # 1.0 103/ul Critically low 1.2-3.[address] [facility] Comment on above: Performed By: #### C BC #### [facility] [address] [place] [address] Dr. Kendall Rachel Lymphocytes/100 WBC (Bld) 23.9 % Normal 20.5-60.0 [facility] Comment on above: Performed By: #### C BC #### [facility] [address] [place] [address] Dr. Kendall Rachel MANUAL DIFF REQ NO Normal [facility] Comment on above: Performed By: #### C BC #### [facility] [address] [place] [address] Dr. Kendall Rachel MCH (RBC) [Entitic mass] 29.8 pg Normal 26.7-34.0 [facility] Comment on above: Performed By: #### C BC #### [facility] [address] [place] [address] Dr. Kendall Rachel MCHC (RBC) [Mass/Vol] 32.5 g/dL Normal 29.9-35.2 [facility] Comment on above: Performed By: #### C BC #### [facility] [address] [place] [address] Dr. Kendall Rachel MCV (RBC) [Entitic vol] 91.8 fL Normal 81.0-99.0 [facility] Comment on above: Performed By: #### C BC #### [facility] [address] [place] [address] Dr. Kendall Rachel MONO # 0.4 103/ul Normal 0.3-0.8 [facility] Comment on above: Performed By: #### C BC #### [facility] [address] [place] [address] Dr. Kendall Rachel Monocytes/100 WBC (Bld) 8.6 % Normal 1.7-12.0 [facility] Comment on above: Performed By: #### C BC #### [facility] [address] [place] [address] Dr. Kendall Rachel NEUT # 2.7 103/ul Normal 1.4-6.5 [facility] Comment on above: Performed By: #### C BC #### [facility] [address] [place] [address] Dr. Kendall Rachel Neutrophils/100 WBC (Bld) 63.7 % Normal 43.0-75.0 [facility] Comment on above: Performed By: #### C BC #### [facility] [address] [place] [address] Dr. Kendall Rachel Platelet mean volume (Bld) [Entitic vol] 10.9 fL Normal 9.5-13.5 [facility] Comment on above: Performed By: #### C BC #### [facility] [address] [place] [address] Dr. Kendall Rachel PLT 300 103/ul Normal 150-450 [facility] Comment on above: Performed By: #### C BC #### [facility] [address] [place] [address] Dr. Kendall Rachel RBC 4.39 106/ul Normal 4.20-5.40 [facility] Comment on above: Performed By: #### C BC #### [facility] [address] [place] [address] Dr. Kendall Rachel WBC 4.2 103/ul Normal 4.0-11.0 [facility] Comment on above: Performed By: #### C BC #### [facility] [address] [place] [address] Dr. Kendall Rachel PROF 14(COMP METB)on 022 Albumin [Mass/Vol] 3.6 g/dL Normal 3.4-5.0 [facility] Comment on above: Performed By: #### C MP #### [facility] [address] [place] [address] Dr. Kendall Rachel Albumin/Globulin [Mass ratio] 1.1 {ratio} Normal [facility] Comment on above: Performed By: #### C MP #### [facility] [address] [place] [address] [address] Kendall Rachel ALP [Catalytic activity/Vol] 74 U/L Normal 46-116 [facility] Comment on above: Performed By: #### C MP #### [facility] [address] [place] [address] Dr. Kendall Rachel ALT [Catalytic activity/Vol] 33 U/L Normal 14-59 [facility] Comment on above: Performed By: #### C MP #### [facility] [address] [place] [address] Dr. Kendall Rachel Anion gap [Moles/Vol] 10.3 mmol/L Normal [facility] Comment on above: Performed By: #### C MP #### [facility] [address] [place] [address] Dr. Kendall Rachel AST [Catalytic activity/Vol] 20 U/L Normal 15-37 [facility] Comment on above: Performed By: #### C MP #### [facility] [address] [place] [address] Dr. Kendall Rachel Bilirubin [Mass/Vol] 0.4 mg/dL Normal 0.2-1.0 [facility] Comment on above: Performed By: #### C MP #### [facility] [address] [place] [address] Dr. Kendall Rachel Calcium [Mass/Vol] 9.3 mg/dL Normal 8.5-10.1 [facility] Comment on above: Performed By: #### C MP #### [facility] [address] [place] [address] Dr. Kendall Rachel Chloride [Moles/Vol] 103 mmol/L Normal 98-107 [facility] Comment on above: Performed By: #### C MP #### [facility] [address] [place] [address] [address] Kendall Rachel CO2 [Moles/Vol] 30.8 mmol/L Normal 21.0-32.0 [facility] Comment on above: Performed By: #### C MP #### [facility] [address] [place] [address] [address] Kendall Rachel Creatinine [Mass/Vol] 0.87 mg/dL Normal 0.55-1.02 [facility] Comment on above: Performed By: #### C MP #### [facility] [address] [place] [address] [address] Kendall Rachel EGFR-AF UKRAINIAN >60 Normal >=60 [facility] Comment on above: Performed By: #### C MP #### [facility] [address] [place] [address] Dr. Kendall Rachel EGFR-NON AF UKRAINIAN >60 Normal >=60 [facility] Comment on above: Performed By: #### C MP #### [facility] [address] [place] [address] [address] Kendall Rachel Globulin (S) [Mass/Vol] 3.4 g/dL Normal [facility] Comment on above: Performed By: #### C MP #### [facility] [address] [place] [address] [address] Kendall Rachel Glucose [Mass/Vol] 100 mg/dL Normal 74-106 [facility] Comment on above: Performed By: #### C MP #### [facility] [address] [place] [address] [address] Kendall Rachel Potassium [Moles/Vol] 4.1 mmol/L Normal 3.5-5.1 [facility] Comment on above: Performed By: #### C MP #### [facility] [address] [place] [address] [address] Kendall Rachel Protein [Mass/Vol] 7.0 g/dL Normal 6.4-8.2 [facility] Comment on above: Performed By: #### C MP #### [facility] [address] [place] [address] [address] Kendall Rachel Sodium [Moles/Vol] 140 mmol/L Normal 136-145 [facility] Comment on above: Performed By: #### C MP #### [facility] [address] [place] [address] Dr. Kendall Rachel Urea nitrogen [Mass/Vol] 23.0 mg/dL Critically high 7.0-18.0 [facility] Comment on above: Performed By: #### C MP #### [facility] [address] [place] [address] Dr. Kendall Rachel Urea nitrogen/Creatinin e [Mass ratio] 26.4 mg/mg Normal [facility] Comment on above: Performed By: #### C MP #### [facility] [address] [place] [address] Dr. Kendall Rachel UA RANDOM W/MICROSCOPICon BACTERIA NONE SEEN Normal NONE SEEN [facility] Comment on above: Performed By: #### U AMIC #### [facility] [address] [place] [address] Dr. Kendall Rachel Bilirubin Ql (U) Negative Normal NEGATIVE [facility] Comment on above: Performed By: #### U AMIC #### [facility] [address] [place] [address] Dr. Kendall Rachel CAST NONE SEEN Normal NONE [facility] Comment on above: Performed By: #### U AMIC #### [facility] [address] [place] [address] Dr. Kendall Rachel Clarity (U) CLEAR Normal CLEAR [facility] Comment on above: Performed By: #### U AMIC #### [facility] [address] [place] [address] Dr. Kendall Rachel Color (U) YELLOW Normal YELLOW [facility] Comment on above: Performed By: #### U AMIC #### [facility] [address] [place] [address] Dr. Kendall Rachel Crystals LM Nom (Urine sed) NONE SEEN Normal NONE SEEN [facility] Comment on above: Performed By: #### U AMIC #### [facility] [address] [place] [address] Dr. Kendall Rachel Epithelial cells LM Ql (Urine sed) RARE Normal NONE SEEN /RARE [facility] Comment on above: Performed By: #### U AMIC #### [facility] [address] [place] [address] [address] Kendall Rachel Glucose Ql (U) Negative Normal NEGATIVE [facility] Comment on above: Performed By: #### U AMIC #### [facility] [address] [place] [address] [address] Kendall Rachel Hemoglobin Ql (U) Negative Normal NEGATIVE [facility] Comment on above: Performed By: #### U AMIC #### [facility] [address] [place] [address] [address] Kendall Rachel Ketones Ql (U) Negative Normal NEGATIVE [facility] Comment on above: Performed By: #### U AMIC #### [facility] [address] [place] [address] [address] Kendall Rachel LEUKOCYTES TRACE Abnormal NEGATIVE [facility] Comment on above: Performed By: #### U AMIC #### [facility] [address] [place] [address] [address] Kendall Rachel MUCOUS TRACE Abnormal NONE SEEN [facility] Comment on above: Performed By: #### U AMIC #### [facility] [address] [place] [address] [address] Kendall Rachel Nitrite Ql (U) Negative Normal NEGATIVE [facility] Comment on above: Performed By: #### U AMIC #### [facility] [address] [place] [address] [address] Kendall Rachel pH (U) 7.0 [pH] Normal 5-9 [facility] Comment on above: Performed By: #### U AMIC #### [facility] [address] [place] [address] [address] Kendall Rachel RBC 0-2 Normal 0-2 [facility] Comment on above: Performed By: #### U AMIC #### [facility] [address] [place] [address] [address] Kendall Rachel SPEC GRAVITY 1.010 Normal 1.005-<=1.025 [facility] Comment on above: Performed By: #### U AMIC #### [facility] [address] [place] [address] [address] Kendall Rachel UA PROTEIN Negative Normal NEGATIVE/ TRACE [facility] Comment on above: Performed By: #### U AMIC #### [facility] [address] [place] [address] [address] Kendall Rachel Urobilinogen Qn (U) 0.2 {Sagrario'U}/dL Normal 0.2 - 1.0 [facility] Comment on above: Performed By: #### U AMIC #### [facility] [address] [place] [address] [address] Kendall Rachel WBC 0-2 Abnormal NONE SEEN [facility] Comment on above: Performed By: #### U AMIC #### [facility] [address] [place] [address] [address] Kendall Rachel Vital Signs Date Time Vital Sign Value Performing Clinician Facility 07-23-2024 10:040 Body height 146.1 cm Rosemary Michelle MD OPHTHALMOLOGIST Work Phone: [facility] 07-23-2024 10:14040 Body mass index (BMI) [Ratio] 24.37 kg/m2 Rosemary Michelle MD OPHTHALMOLOGIST Work Phone: [facility] 07-23-2024 10:14040 Body temperature 97.11 [degF] Rosemary Michelle MD OPHTHALMOLOGIST Work Phone: [facility] 07-23-2024 10:14040 Body weight 51.98 kg Rosemary Michelle MD OPHTHALMOLOGIST Work Phone: [facility] 07-23-2024 10:14-040 Diastolic blood pressure 68 mm[Hg] Rosemary Michelle MD OPHTHALMOLOGIST Work Phone: [facility] 07-23-2024 10:14-0400 Heart rate 76 /min Rosemary Michelle MD OPHTHALMOLOGIST Work Phone: [facility] 07-23-2024 10:14-0400 Respiratory rate 18 /min Rosemary Michelle MD OPHTHALMOLOGIST Work Phone: [facility] [employer] 07-23-2024 10:14-0400 SaO2% (BldA) [Mass fraction] 97 % Rosemary Michelle MD OPHTHALMOLOGIST Work Phone: [facility] [employer] 07-23-2024 10:14-0400 Systolic blood pressure 138 mm[Hg] Rosemary Michelle MD OPHTHALMOLOGIST Work Phone: [facility] 04-05-2023 13:35-0400 Body height 144.78 cm Brenda Gretel Other [employer] Other 04-05-2023 13:35-0400 Body mass index (BMI) [Ratio] 24.67 kg/m2 Brenda Gretel Other [employer] Other 04-05-2023 13:35-0400 Body temperature 97.6 [degF] Brenda Gretel Other [employer] Other 04-05-2023 13:35-0400 Body weight 51.71 kg Brenda Gretel Other [employer] Other 04-05-2023 13:35-0400 Diastolic blood pressure 79 mm[Hg] Brenda Gretel Other [employer] Other 04-05-2023 13:35-0400 Respiratory rate 18 /min Brenda Gretel Other [employer] Systems Other 04-05-2023 13:35-0400 SaO2% (BldA) [Mass fraction] 98 % Brenda Gretel Other [employer] Other 04-05-2023 13:35-0400 Systolic blood pressure 171 mm[Hg] Brenda Gretel Other Real Time Translation [employer] Other Encounters Encounter Date Encounter Type Care Provider Facility Start: 07-23-2024 End: 07-23-2024 Bamboo flowsheet Rosemary Miguel Angel MD OPHTHALMOLOGIST Work Phone: [facility] Start: 07-23-2024 End: 07-23-2024 Bamboo flowsheet Rosemary Miguel Angel MD OPHTHALMOLOGIST Work Phone: [facility] Start: 07-23-2024 End: 07-23-2024 Patient encounter procedure Rosemary Josemaxkayz MD OPHTHALMOLOGIST Work Phone: [facility] Comment on above: Encounter for subseq uent annual wellness visit (AWV) in Medicare patient (Primary Dx); Gastroesophageal reflux disease without esophagitis; Age-related osteoporosis without current pathological fracture ([facility]/HCC); Mixed urge and stress incontinence; Needs flu shot; Subacute frontal sinusitis Start: 07-23-2024 End: 07-23-2024 ambulatory ROSEMARY AICHHOLZ Not Available Start: 01-19-2024 End: 01-19-2024 ambulatory ROLY AMAYA Not Available Start: 01-17-2024 End: 01-17-2024 ambulatory ROSEMARY AICHHOLZ Not Available Start: 01-05-2024 End: 01-05-2024 ambulatory ROLY AMAYA Not Available Start: 12-27-2023 End: 12-27-2023 ambulatory ROSEMARY AICHHOLZ Not Available Start: 12-13-2023 End: 12-13-2023 ambulatory ROSEMARY AICHHOLZ Not Available Start: 12-05-2023 End: 12-05-2023 ambulatory ROSEMARY AICHHOLZ Not Available Start: 04-05-2023 End: 04-05-2023 ambulatory Brenda Majano Facility:[facility] Start: 04-05-2023 End: 04-05-2023 Patient encounter procedure MD OPHTHALMOLOGIST-C Brenda Majano Work Phone: [facility] Work Phone: Start: 04-05-2023 End: 04-05-2023 ambulatory MD OPHTHALMOLOGIST-C Brenda Majano Work Phone: [facility] Work Phone: Start: 04-05-2023 Office outpatient ne w 20 minutes Brenda Majano [facility] Start: 06-03-2022 End: 06-04-2022 ambulatory MUSA MONTERO JOSEMaxFÁTIMA Facility:[facility] Start: 05-31-2022 End: 06-01-2022 ambulatory [employer]ER ROSEMARY MIGUEL ANGEL Facility:[facility] Procedures Date Procedure Procedure Detail Performing Clinician Start: 04-05-2023 X-ray of right foot MD OPHTHALMOLOGIST- C Brenda Majano Work Phone: Plan of Treatment Date Care Activity Detail Author Start: 07-23-2025 Medicare Annual Wellness (AWV) Medicare Annual Wellness (AWV) [facility] Start: 07-15-2025 End: 07-15-2025 Patient encounter procedure 07/15/2025 10:00 AM EDT Office Visit [facility] [address] [place] [address] Rosemary Michelle, JUAN PABLO [address] [place] [address] [facility] Start: 07-23-2024 End: 07-23-2025 25-hydroxyvitamin D3 [Mass/volume] in Serum or Plasma Vitamin D 25 hydroxy Lab Routine Age-related osteoporosis without current pathological fracture ([facility]/HCC) Expected: 07/23/2024 (Approximate), Expires: 07/23/2025 [facility] Comment on above: Expected: 07/23/2024 (Approximate), Expi res: 07/23/2025 Start: 07-23-2024 End: 07-23-2025 CBC W Auto Differential panel - Blood CBC and differential Lab Routine Gastroesophageal reflux disease without esophagitis Expected: 07/23/2024 (Approximate), Expires: 07/23/2025 [facility] Work Phone: Comment on above: Expected: 07/23/2024 (Approximate), Expi res: 07/23/2025 Start: 07-23-2024 End: 07-23-2025 Comprehensive metabolic 2000 panel - Serum or Plasma Comprehensive metabolic panel Lab Routine Gastroesophageal reflux disease without esophagitis Age-related osteoporosis without current pathological fracture (CMS/HCC) Expected: 07/23/2024 (Approximate), Expires: 07/23/2025 [facility] Comment on above: Expected: 07/23/2024 (Approximate), Expi res: 07/23/2025 Start: 07-23-2024 End: 07-23-2025 Urinalysis complete panel - Urine Urinalysis with reflex microscopic (clean catch) Lab Routine Mixed urge and stress incontinence Expected: 07/23/2024 (Approximate), Expires: 07/23/2025 [facility] Comment on above: Expected: 07/23/2024 (Approximate), Expi res: 07/23/2025 Start: 07-23-2024 End: 07-23-2024 Patient encounter procedure 07/23/2024 10:00 AM EDT Office Visit [facility] [address] [place] [address] Rosemary Michelle NP [address] [place] [address] Gastroesophageal reflux disease without esophagitis (Primary Dx); Age-related osteoporosis without current pathological fracture (CMS/HCC); Mixed urge and stress incontinence [facility] Comment on above: Gastroesophageal reflux disease without esophagitis (Primary Dx); Age-related osteoporosis without current pathological fracture (CMS/HCC); Mixed urge and stress incontinence Start: 07-03-2024 Medicare Annual Wellness (AWV) Medicare Annual Wellness (AWV) [facility] Start: 06-02-2024 Influenza vaccination Influenza Vaccine (#1) [facility] Immunizations Immunization Date Immunization Notes Care Provider Fa cility 07-23-2024 Seasonal trivalent influenza vaccine, adjuvanted, preservative free Rosemary Michelle MD OPHTHALMOLOGIST Work Phone: [facility] 07-26-2023 Influenza, Seasonal, Quadrivalent, Adjuvanted Rosemary Michelle MD OPHTHALMOLOGIST Work Phone: [facility] 07-26-2023 influenza virus vaccine, unspecified formulation Rosemary Aichholz MD OPHTHALMOLOGIST Work Phone: [facility] 07-19-2023 Influenza, High-dose Seasonal, Quadrivalent, Preservative Free Rosemary Aichholz MD OPHTHALMOLOGIST Work Phone: [facility] 07-19-2022 Influenza, Seasonal, Quadrivalent, Adjuvanted Rosemary Aichholz MD OPHTHALMOLOGIST Work Phone: [facility] 07-24-2021 Influenza, High-dose Seasonal, Quadrivalent, Preservative Free Rosemary Aichholz MD OPHTHALMOLOGIST Work Phone: [facility] 07-16-2020 Influenza, Seasonal, Quadrivalent, Adjuvanted Rosemary Aichholz MD OPHTHALMOLOGIST Work Phone: [facility] 06-11-2016 tetanus toxoid, reduced diphtheria toxoid, and acellular pertussis vaccine, adsorbed Brenda Gretel Other [employer] Other 09-10-2014 influenza, seasonal, injectable Rosemary Aichholz MD OPHTHALMOLOGIST Work Phone: [facility] 10-11-2012 influenza virus vaccine, whole virus Rosemary Aichholz MD OPHTHALMOLOGIST Work Phone: [facility] Payers Date Payer Category Payer Medicare [id number] 2023 Self-pay 2021 Medicare (Managed Care) [employer] [id number] 1959 Unknown [id number] 1940 Unknown [id number]. 2.593 1940 Unknown [id number] 2.16.840.1.031984.3.579. 2.593 1940 Unknown [id number] 2.16.840.1.560478.3.579. 2.1259 1940 Unknown [id number] 2.16.840.1.909154.3.579. 2.1259 1940 Unknown [id number] 2.16.840.1.122915.3.579. 2.1259 1940 Unknown [id number] 2.16.840.1.687293.3.579. 2.1259 1940 Unknown [id number] 2.16.840.1.087726.3.579. 2.1259 1940 Unknown [id number] 2.16.840.1.104788.3.579. 2.1259 1940 Unknown [id number] 2.16.840.1.769889.3.579. 2.1259 Unknown [id number] [id number]. 2.531 Social History Date Type Detail Facility Tobacco smoking stat [facility] Unknown if ever smoked [facility] Work Phone: Start: 1940 Sex Assigned At Female [facility] Start: 01-17-2024 End: 07-23-2024 Sex Assigned At [facility] [employer] [facility] Other Start: 12-05-2023 Tobacco smoking stat [facility] Never smoked tobacco [facility] Start: 12-05-2023 Tobacco use and exposure Smokeless tobacco non-user [facility] Start: 01-17-2024 End: 07-23-2024 Alcoholic beverage intake Lifetime non-drinker (finding) [facility] Start: 01-17-2024 End: 07-23-2024 History of Social function [facility] Start: 12-05-2023 Alcohol Comment caffine: cki ee 2 daily and soda [facility] Start: 1940 Sex assigned at Not on file [facility] History of Present illness Narrative 07-23-2024 Rosemary Michelle NP - 07/23/2024 10:55 AM EDJARAD SARAH - 07/23/2024 10:00 AM EDDerick Michelle NP - 07/23/2024 10:00 AM EDT Note Date & Type Note Facility 07-23-2024 History of Presen t illness Narrative Associated Problem(s): Encounter for subsequent annual wellness visit (AWV) in Medicare patient Reviewed Ht/Wt/BMI Recommend eye exam yearly Recommend dental exams twice a year Balance work/leisure activities Exercises is recommended most days of the week (appropriate as chronic conditions allow) Follow up yearly and prn Sinus/allergies- couple weeks now. Allergy medication and nasal spray is not helping. Pain in the frontal lobe, stuffy/runny nose, some green mucus, phlegm in the back of the throat, pressure and headaches. Pt had mammogram done today Pt will need a refill on her cream for lichens Images from the original note were not included. Melida Lyman is a 84 y.o. female presents with chief complaint of No chief complaint on file. HPI: Diet: variety Activity: walks every day Mental Health Concerns: none Falls in the last year: none Still driving: yes Do you pay your bills: yes Any hearing problems: none Any Vision problems: none Any Hospitalizations in the last year: none Specialist: [facility] ([facility]), dentist: in between , HCPOA/Living Will: yes Concerns: sinus infection Sinusitis This is a new problem. The current episode started 1 to 4 weeks ago. The problem has been gradually worsening since onset. There has been no fever. The pain is mild. Associated symptoms include congestion, headaches and sinus pressure. Pertinent negatives include no chills, coughing, ear pain, shortness of breath or sore throat. Past treatments include nothing. SUBJECTIVE: MEDICATIONS: Current Outpatient Medications Medication Instructions calcium carbonate (Super Calcium) 1500 (600 Ca) MG tablet Every 12 hours clobetasol (Temovate) 0.05 % cream 1 Application, Topical, Every 12 hours ibuprofen 200 MG tablet Every 12 hours lansoprazole (Prevacid) [address] capsule Every 24 hours loratadine (Claritin) 10 MG tablet Every 24 hours Multiple Vitamins-Minerals (PreserVision AREDS 2) capsule as directed Orally ALLERGIES: Allergies Allergen Reactions Amoxicillin Hives Sulfamethoxazole-Trimethoprim Hives REVIEW OF SYMPTOMS: Review of Systems Constitutional: Negative for appetite change, chills and fever. HENT: Positive for congestion and sinus pressure. Negative for ear pain and sore throat. Eyes: Negative for pain, discharge, redness and visual disturbance. Respiratory: Negative for cough, shortness of breath and wheezing. Cardiovascular: Negative for chest pain, palpitations and leg swelling. Gastrointestinal: Negative for abdominal pain, blood in stool, constipation, diarrhea, nausea and vomiting. Genitourinary: Negative for difficulty urinating, dysuria and frequency. Musculoskeletal: Negative for arthralgias, back pain, joint swelling and myalgias. Skin: Negative for rash and wound. Neurological: Positive for headaches. Negative for dizziness, tremors, seizures and syncope. Psychiatric/Behavioral: Negative for behavioral problems, self-injury and suicidal ideas. The patient is not nervous/anxious. Hematological: Does not bruise/bleed easily. Endocrine: Negative for polydipsia, polyphagia and polyuria. Allergic/Immunologic: Negative for environmental allergies and food allergies. PAST MEDICAL HISTORY No past medical history on file. No past surgical history on file. family history is not on file. OBJECTIVE: Visit Vitals BP 138/68 (BP Location: Left arm, Patient Position: Sitting, BP Cuff Size: Adult long) Pulse 76 Temp 97.1 F (Temporal) Resp 18 Ht 4' 9.5 Wt 114 lb 9.6 oz SpO2 97% BMI 24.37 kg/m Smoking Status Never BSA 1.45 m Physical Exam Vitals and nursing note reviewed. Constitutional: General: She is not in acute distress. Appearance: Normal appearance. HENT: Head: Normocephalic and atraumatic. Right Ear: Tympanic membrane, ear canal and external ear normal. Left Ear: Tympanic membrane, ear canal and external ear normal. Nose: Congestion (yellow) present. Comments: Sinus pressure Mouth/Throat: Mouth: Mucous membranes are moist. Eyes: Extraocular Movements: Extraocular movements intact. Conjunctiva/sclera: Conjunctivae normal. Neck: Vascular: No carotid bruit. Cardiovascular: Rate and Rhythm: Normal rate and regular rhythm. Pulses: Normal pulses. Heart sounds: Normal heart sounds. Pulmonary: Effort: Pulmonary effort is normal. Breath sounds: Normal breath sounds. Abdominal: General: Bowel sounds are normal. There is no distension. Palpations: Abdomen is soft. There is no mass. Tenderness: There is no abdominal tenderness. Musculoskeletal: General: Normal range of motion. Cervical back: Normal range of motion and neck supple. Right lower leg: No edema. Left lower leg: No edema. Lymphadenopathy: Cervical: No cervical adenopathy. Skin: General: Skin is warm and dry. Capillary Refill: Capillary refill takes 2 to 3 seconds. Findings: No rash. Neurological: General: No focal deficit present. Mental Status: She is alert and oriented to person, place, and time. Psychiatric: Mood and Affect: Mood normal. Behavior: Behavior normal. Thought Content: Thought content normal. Judgment: Judgment normal. ASSESSMENT AND PLAN: No follow-ups on file. Problem List Items Addressed This Visit Gastroesophageal reflux disease without esophagitis - Primary Relevant Orders CBC and differential Comprehensive metabolic panel Age-related osteoporosis without current pathological fracture (CMS/HCC) Relevant Orders Comprehensive metabolic panel Vitamin D 25 hydroxy Mixed urge and stress incontinence Relevant Orders Urinalysis with reflex microscopic (clean catch) Needs flu shot Relevant Orders Flu vaccine, trivalent, adjuvanted, PF ([id number]) (Fluad trivalent single dose syringe) Subacute frontal sinusitis Relevant Medications azithromycin (Zithromax) 250 MG tablet Encounter for subsequent annual wellness visit (AWV) in Medicare patient Reviewed Ht/Wt/BMI Recommend eye exam yearly Recommend dental exams twice a year Balance work/leisure activities Exercises is recommended most days of the week (appropriate as chronic conditions allow) Follow up yearly and prn documented in this encounter [facility] Evaluation note 04-05-2023 Note Date & Type [...] of your right shoe. 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 if no improvement in 5 to 7 days Apr, Other [employer] material was printed [employer] Other Evaluation note Note Date & Type Note Facility Evaluation note No assessment information availa [facility] Work Phone: Evaluation note Note Date & Type Note Facility Evaluation note Diagnosis Dysuria- Primary Trapezius muscle strain, left, initial encounter Trapezius muscle strain, left, subsequent encounter- Primary Trapezius muscle strain, left, subsequent encounter- Primary Acute non-recurrent pansinusitis Trapezius muscle strain, left, subsequent encounter- Primary Encounter for subsequent annual wellness visit (AWV) in Medicare patient- Primary Gastroesophageal reflux disease without esophagitis Esophageal reflux Age-related osteoporosis without current pathological fracture (CMS/[facility]) Mixed urge and stress incontinence Mixed incontinence urge and stress (male)(female) Needs flu shot Need for prophylactic vaccination and inoculation against influenza Subacute frontal sinusitis documented in this encounter [facility] History general Narrative - Reported Note Date & Type Note Facility History general Narrative - Reported Type Medical History GERD (gastroesophageal reflux di sease) Medical History Seasonal allergic rhinitis Surgical History C section Surgical History hysterectomy [employer] Other Summary Purpose Family History No Family History Records FoundNo Family History Records FoundNo Family History Records Found Advance Directives No Advanced Directives Records FoundNo Advanced Directives Records FoundNo Advanced Directives Records Found Additional Source Comments INFORMATION SOURCE (unrecogn ized section and content) DATE CREATED AUTHOR 06/07/2022 [facility] DATE CREATED AUTHOR AUTHOR'S ORGANIZ ATION 05/27/2023 [facility] DATE CREATED AUTHOR AUTHOR'S ORGANIZ ATION 07/25/2024 [facility] EPIC Care Teams (unrecognized sec tion and content) Team Status: Inactive Member Role Status Dates Brenda Majano NP-C Attending Provider Active Mounter Automatic Relationship Specialty Start Date End Date Rosemary Michelle NP [address] [place] [phone] PCP - Tyron MCMAHON 01/31/24 Unallocated, Maynor Bragg MD [facility] [place] [address] PCP - General Family Medicine 07/16/24 Rosemary Michelle NP [address] [place] [address] Nurse Practitioner Family Medicine 12/05/23 Mounter Automatic Relationship Specialty Start Date End Date Rosemary Michelle NP [address] [place] [address] PCP - Tyron MCMAHON 01/31/24 Unallocated, Maynor Bragg MD [address] [place] [address] PCP - General Family Medicine 07/16/24 Rosemary Michelle NP [address] [place] [address] Nurse Practitioner Family Medicine 12/05/23 Goals (unrecognized section and content) Goals may [...] BE BASED ON THE PRIMARY CLINICAL RECORDS. [employer] [facility] provides no warranty or guarantee of the accuracy or completeness of information in this document.
[2024-07-26 08:38] LABS: Bilirubin Urine NEGATIVE (NEGATIVE); Blood Urine TRACE-I (NEGATIVE); Clarity Urine CLEAR (CLEAR); Color Urine LT. YELLOW (YELLOW); Glucose Urine UA NEGATIVE (NEGATIVE); Ketones Urine NEGATIVE (NEGATIVE); Leukocyte Esterase Urine TRACE (NEGATIVE); Nitrite Urine NEGATIVE (NEGATIVE); Protein Urine NEGATIVE (NEG/TRACE); Urobilinogen Urine 0.2 EU/dL (0.2-1.0); pH Urine 6.5 (5.0-9.0)
[2024-07-26 08:39] LABS: Urine Microscopic Indicated YES
[2024-07-26 08:42] LABS: Basophils Absolute Auto 0.1 10^3/uL (0.0-0.1); Basophils Percent Auto 1.1 % (0.2-2.0); Eosinophils Absolute Auto 0.2 10^3/uL (0.0-0.7); Eosinophils Percent Auto 4.3 % (0.9-7.0); Hematocrit 41.6 % (36.0-48.0); Hemoglobin 13.7 g/dL (12.0-16.0); Immature Granulocytes Abs Auto 0.01 10^3/uL (0.00-0.03); Immature Granulocytes Pct Auto 0.2 % (0.0-0.5); Lymphocytes Absolute Auto 1.2 10^3/uL (1.2-3.8); Lymphocytes Percent Auto 26.4 % (20.5-60.0); Mean Corpuscular HGB Conc 32.9 g/dL (29.9-35.2); Mean Corpuscular Hemoglobin 30.1 pg (26.7-34.0); Mean Corpuscular Volume 91.4 fL (81.0-99.0); Mean Platelet Volume 9.9 fL (9.5-13.5); Monocytes Absolute Auto 0.5 10^3/uL (0.3-0.8); Monocytes Percent Auto 10.2 % (1.7-12.0); Neutrophils Absolute Auto 2.6 10^3/uL (1.4-6.5); Neutrophils Percent Auto 57.8 % (43.0-75.0); Platelet Count 302 10^3/uL (150-450); Red Blood Count 4.55 10^6/uL (4.20-5.40); Red Cell Distribution Width 12.7 % (11.0-15.0); White Blood Count 4.4 10^3/uL (4.0-11.0)
[2024-07-26 08:51] LABS: Bacteria Urine TRACE #/HPF (NONE SEEN); Mucus Urine MODERATE (NONE SEEN); RBC Urine 0-2 #/HPF (0-2)
[2024-07-26 08:52] LABS: Cast Seen? NONE SEEN #/LPF (NONE SEEN); Crystals Seen? None Seen #/HPF (None Seen); Squamous Epithelial Cell Urine MODERATE #/LPF (NONE/RARE)
[2024-07-26 08:58] LABS: Alanine Aminotransferase 30 U/L (14-59); Albumin Globulin Ratio 0.9; Albumin Level 3.5 g/dL (3.4-5.0); Alkaline Phosphatase 70 U/L (46-116); Anion Gap 14.9; Aspartate Amino Transferase 23 U/L (15-37); BUN Creatinine Ratio 21.2; Bilirubin Total 0.4 mg/dL (0.2-1.0); Calcium 9.6 mg/dL (8.5-10.1); Carbon Dioxide 29.4 mmol/L (21.0-32.0); Chloride 104 mmol/L (98-107); Estimated GFR (African America >60 (>=60 mL/min/1.73m^2); Estimated GFR (Non-African Ame 50 (>=60 mL/min/1.73m^2); Globulin 3.8 g/dL; Glucose 103 mg/dL (74-106); Potassium 4.3 mmol/L (3.5-5.1); Sodium 144 mmol/L (136-145); Total Protein 7.3 g/dL (6.4-8.2)
== END 2024-07-26 08:04 | disposition home or self-care (01) ==
LOC: LAB 08:07
PROVIDERS: PCP Nurse Practitioner; Visit Provider Nurse Practitioner
DX: K21.9 Gastro-esophageal reflux disease without esophagitis (principal); M81.0 Age-related osteoporosis without current pathological fracture; N39.46 Mixed incontinence
CPT/HCPCS: 36415; 80053; 81001; 82306; 85025

== ENCOUNTER 2025-02-20 11:36 | Outpatient (OUT) | payer MEDICARE, SELFPAY ==
--- OUTSIDE RECORDS SUMMARY | 2025-02-20 09:22 | XMS_ITS ---
Author Name Auto Generated Organization OHIP Care Team Providers Care Pasteurizing Supervisor Name Role Phone ROSEMARY MICHELLE Attending Unavailable ROSEMARY MICHELLE Attending Unavailable Rosemary Michelle Primary Care Unavailable Natalie Miller Attending Unavailable Natalie Miller Admitting Unavailable PROBLEMS DATE TYPE CONDITION / CODE [facility] Unknown Frequency of micturition / R35.0(ICD-10) Natalie Miller Active [facility] PROCEDURES No Procedure Records Found RESULTS URINE CULTURE Observed: 01/30/2025 7:55 PM Status: F Source: [facility] <9,000 colonies/ml mixed bacterial skin contaminants 2 Days PERFORMED BY: [place] [address] PATHOLOGIST EVICTION SPECIALIST KEN SEPULVEDA M.D. Performed By: #### CUU #### [address] ALLERGIES DATE TYPE / CODE NAME / CODE REACTION SEVERITY SOURCE 01/30/2025 Drug Allergy/050304990 (SNOMED CT) sulfamethoxazole/ [id number](RXNORM ) Rash Unknown [facility] 01/30/2025 Drug Allergy/163957871 (SNOMED CT) trimethoprim/F006 310451(RXNORM) Rash Unknown [facility] 01/30/2025 Drug Allergy/021453800 (SNOMED CT) amoxicillin/X9578 05611(RXNORM) Rash Unknown [facility] ENCOUNTERS ADMIT/DISCHARGE ACCOUNT NUMBER ADMITTING ENCOUNTER CLASS LOCATION SOURCE 02/20/2025/02/21/20 25 [id number] [facility] 01/30/2025/01/31/20 25 [id number] [facility] 07/23/2024/07/23/20 24 [id number] Ambulatory Building:[facility] EPIC PAYERS ENCOUNTER GUARANTOR PAYER SUBSCRIBER SOURCE 02/20/2025 MELIDA JOHNSONLINAOB: [address] [place] [id number]: (HP) Primary Insurance:DANIELEM MEDICARE ADVANTAGEPolicy Number: [id number] Date:2021-10-02 MELIDA JOHNSONRDOB: [id number] [address] [place] [id number] [facility] EPIC 01/30/2025 [place] Tristian JohnsonLmtg23[address] [place] [address]Cnl: (HP) Primary Insurance:Boyd MCR PFFSPolicy Number: [id number] Date:2025-01-30 Melida L AlexrDOB: [id number] [address] [place] [address], [place] [address]Bng: (HP) [facility] 01/30/2025 Secondary Insurance:Self PayPolicy Number: Effective Date:2025-01-30 [facility] 07/23/2024 MELIDA JOHNSONRDOB: [address] [place] [address], [place] [address]Uqs: (HP) Primary Insurance:DANIELEM MEDICARE ADVANTAGEPolicy Number: [id number] Date:2021-10-02 MELIDAROBERT JOHNSONRDOB: [id number] [address] [place] [address], [place] [address] [facility] EPIC
--- OUTSIDE RECORDS SUMMARY | 2025-02-20 11:41 | XMS_ITS | Clinical Summary ---
Author Organization [facility] Address [address] [facility] [place] [address] Care Team Providers Care Hi Ranger Operator Name Role Phone JoseRosemary steele BEATER AND PULPER FEEDER Unavailable [phone] Simone Monk MD Primary Care Provider Allergies Active Allergy Reactions Criticality Noted Date Comments Amoxicillin Hives 12/05/2023 Sulfamethoxazole-Trimethoprim Hives 2023 Medications Multiple Vitamins-Health Companion als (PreserVision AREDS 2) capsule as directed Orally Active calcium carbonate (Super Calcium) 1500 (600 Ca) MG tablet every 12 (twelve) hours Active ibuprofen 200 MG tablet every 12 (twelve) hours Active loratadine (Claritin) 10 MG tablet 1 (one) time each day at the same time Active lansoprazole (Prevacid) [address] capsule 1 (one) time each day at the same time Active clobetasol (Temovate) 0.05 % cream Apply 1 Application topically every 12 (twelve) hours Active mupirocin (Bactroban) 2 % ointmentIndica tions:Open wound Apply topically in the morning and in the evening. Do all this for 10 days. Thin layer to affected area twice a day for 10 days. 22 g 5 03/02/20 25 Active azithromycin (Zithromax) 250 MG tabletIndicati ons:Subacute frontal sinusitis 2 pills day #1, and then 1 pill day #2-#5 6 tablet 4 02/21/20 25 Discontin ued(Thera py completed ) Active Problems Problem Noted Date Diagnosed Date Open wound 02/20/2025 Hypertension 02/20/2025 Assessment & Plan (02/20/2025 10:55 AM EDT): Log book given Script for BP cuff for home monitoring BID, fu in 2 weeks Check labs and EKG No red flag sxs Unsure if this represents some underlying anxiety, or possible white coat htn Needs flu shot 07/23/2024 Subacute frontal sinusitis 07/23/2024 Encounter for subsequent joshua ual wellness visit (AWV) in Medicare patient 07/23/2024 Assessment & Plan (07/23/2024 10:55 AM EDT): Reviewed Ht/Wt/BMI Recommend eye exam yearly Recommend dental exams twice a year Balance work/leisure activities Exercises is recommended most days of the week (appropriate as chronic conditions allow) Follow up yearly and prn Macular degeneration 12/13/2023 Chronic rhinitis 12/13/2023 DDD (degenerative disc disease), cervical 2023 Lichen sclerosus of vulva 12/13/2023 Gastroesophageal reflux disease without esophagi tis 12/13/2023 Age-related osteoporosis wit hout current pathological fracture 12/13/2023 Mixed urge and stress incontinence 12/13/2023 Trapezius muscle strain, left, subsequent encoun ter 12/13/2023 Assessment & Plan (01/17/2024 2:49 PM EDT): Resolved Fu PRN, cont HEP Assessment & Plan (12/27/2023 9:07 AM EDT): Stop tizandine, order PT Can continue w Ibuprofen Assessment & Plan (12/13/2023 12:06 PM EDT): Still suspect this is the cause, no zoster, no facial parasthesia to suggest TN Will add tizandine at HS, monitor for dizziness Ice, NSAID, suspect elevated blood pressure d/t pain Fu in 1 weeks Dysuria 12/05/2023 Assessment & Plan (12/05/2023 2:53 PM EST): Office urine dip, no nitrates or leukocytes Will send for culture fluids Resolved Problems Problem Noted Date Diagnosed Date Resolved Date Acute non-recurrent pansinusitis 12/27/2023 07/23/2024 Assessment & Plan (12/27/2023 9:10 AM EDT): Rest, fluids, finish atb Fu if not better Trapezius muscle strain, lef t, initial encounter 12/05/2023 12/13/2023 Assessment & Plan (12/05/2023 2:54 PM EST): Ibuprofen OTC BID for 7 days Ice 4-5 times daily Hand out on stretching exercises Fu if not better in a week Encounters Date Type Department Care Team Description 02/20/2025 9:40 AM EDT Office Visit [facility] [address] [place] [address] Rosemary Michelle NP Hypertension, unspecified type (CMS/HCC) (Primary Dx); Open wound 02/20/2025 Bamboo flowsheet [facility] [address] [place] [address] Rosemary Michelle NP from Last 3 Months Immunizations Immunization Administration Dates Next Due Influenza Whole 10/11/2012 Influenza, High-dose Seasona l, Quadrivalent, Preservative Free 07/19/2023,07/24/2021 Influenza, Seasonal, Quadriv alent, Adjuvanted 07/26/2023,07/19/2022,07/16/2020 Influenza, seasonal, injectable 09/10/2014 Influenza, trivalent, adjuvanted 07/23/2024 Tdap 06/11/2016 Social History Tobacco Use Types Packs/Day Years Used Date Smoking Tobacco: Never Smokeless Tobacco: Never Tobacco Cessation:Counseling Given: Not Answered Alcohol Use Standard Drinks/Week Comments Never 0 (1 standard drink = 0.6 oz pure alcohol) caffine: coffiee 2 daily and soda PHQ-2 Answer Date Recorded Patient Health Questionnaire-2 Score 0 07/23/2024 Comments Unknown Sex and Gender Information Value Date Recorded Sex Assigned at Not on file Legal Sex Female 6:58 PM EDT Gender Identity Not on file Sexual Orientation Not on file Last Filed Vital Signs Vital Sign Reading Time Taken Comments Blood Pressure 160/60 02/20/2025 9:45 AM EDT Pulse 68 02/20/2025 9:45 AM EDT Temperature 36.4 C (97.6 F) 02/20/2025 9:45 AM EDT Respiratory Rate 18 02/20/2025 9:45 AM EDT Oxygen Saturation 99% 02/20/2025 9:45 AM EDT Inhaled Oxygen Concentration - - Weight 52.3 kg (115 lb 6.4 oz) 02/20/2025 9:45 A M EDT Height 146.1 cm (4' 9.5 ) 07/23/2024 10:14 AM ED T Body Mass Index 24.54 07/23/2024 10:14 AM EDT Plan of Treatment Upcoming Encounters Date Type Department Care Team (Late st Contact Info) Description 03/06/2025 11:30 AM EDT Office Visit [facility] [address] [place] [address] Rosemary Michelle, JUAN PABLO [address] [place] [phone] 07/15/2025 10:00 AM EDT Office Visit [facility] [address] [place] [address] Rosemary Michelle, JUAN PABLO [address] [place] [address] Health Maintenance Due Date Last Done Comments Medicare Annual Wellness (AWV) 07/23/2025 1 , 07/23/2024, 07/03/2023, Additional history exists Influenza Vaccine Completed 07/23/2024, , 07/19/2023, Additional history exists Pneumococcal Vaccine: 65+ Years Discontinued Insurance [facility] MEDICARE ADVANTAGE Care Teams Hi Ranger Operator Relationship Specialty Start Date End Date Simone Monk MD [address] [place] [phone] PCP - General Family Medicine 08/01/24 Rosemary Michelle NP [address] [place] [address] Nurse Practitioner Family Medicine 12/05/23
--- OUTSIDE RECORDS SUMMARY | 2025-02-20 11:41 | XMS_ITS | Encounter Summary ---
Author Organization [facility] Address [address] [place] [address] Care Team Providers Care Computer Systems Administrator Name Role Phone Rosemary Michelle COPY CLERK Unavailable [phone] Rosemary Michelle NP Unavailable [phone] Unallocated, [facility] Provider Primary Care Provi bruno Simone Monk MD Primary Care Provider [phone] Encounter Details Date Type Department Care Team (Late st Contact Info) Description 07/23/2024 Clinisync Result Encounter [facility] External Department Unsolicited Rosemary Michelle, COPY CLERK [address] [place] [address] Social History Tobacco Use Types Packs/Day Years Used Date Smoking Tobacco: Never Smokeless Tobacco: Never Alcohol Use Standard Drinks/Week Comments Never 0 (1 standard drink = 0.6 oz pure alcohol) caffine: coffiee 2 daily and soda PHQ-2 Answer Date Recorded Patient Health Questionnaire-2 Score 0 07/23/2024 Comments Unknown Sex and Gender Information Value Date Recorded Sex Assigned at Not on file Legal Sex Female 6:58 PM EDT Gender Identity Not on file Sexual Orientation Not on file documented as of this encounter Functional Status * Over the past 2 weeks, how often have you been bothered by any of the following problems? Question Answer Date of Assessment Author Little interest or pleasure in doing things Not at all 07/23/2024 10:21 AM EDT RITESH PITT Feeling down, depressed, or hopeless Not at all 07/23/2024 10:21 AM EDT RITESH PITT Patient Health Questionnaire -2 Score 0 07/23/2024 10:21 AM RITESH BURRIS * Question Answer Date of Assessment Author Trouble falling or staying asleep, or sleeping too much Several days 07/23/2024 10:21 AM JARAD GONG Feeling tired or having little energy Not at all 07/23/2024 10:21 AM RITESH BURRIS Poor appetite or overeating Not at all 07/23/2024 10 :21 AM JARAD BURRIS Feeling bad about yourself - or that you are a failure or have let yourself or your family down Not at all 07/23/2024 10:21 AM RITESH BURRIS Trouble concentrating on things, such as reading the newspaper or watching television Not at all 07/23/2024 10:21 AM RITESH BURRIS Moving or speaking so slowly that other people could have noticed? Or the opposite - being so fidgety or restless that you have been moving around a lot more than usual. Not at all 07/23/2024 10:21 AM JARAD DOZIER Thoughts that you would be better off or hurting yourself in some way Not at all 07/23/2024 10:21 AM PSIKE BURRIS Patient Health Questionnaire-9 Score 1 07/23/2024 10:21 AM YUDELKA BURRIS * How difficult have these problems made it for you to do your work, take care of things at home, or get along with other people? Answer Date of Assessment Author Not difficult at all 07/23/2024 10:21 AM JARAD BUI * Geriatric Depression Scale (Short Version) Question Answer Date of Assessment Author Are you basically satisfied with your life? Yes 07/23/2024 10:23 AM RITESH BURRIS Have you dropped many of you r activities and interests? No 07/23/2024 10:23 AM JARAD BURRIS Do you feel that your life i s empty? No 07/23/2024 10:23 AM RITESH BURRIS Do you often get bored? No 07/23/2024 10:23 AM EDT JARAD PITT Are you in good spirits most of the time? Yes 07/23/2024 10:23 AM EDT RITESH PITT Are you afraid that somethin g bad is going to happen to you? No 07/23/2024 10:23 AM EDT JAARD PITT Do you feel happy most of the time? Yes 07/23 10:23 AM EDT JARAD PITT Do you often feel helpless? No 07/23/2024 10 :23 AM EDT JARAD PITT Do you prefer to stay at [facility], rather than going out and doing new things? No 07/23/2024 10:23 AM RITESH BURRIS Do you feel you have more pr oblems with memory than most? No 07/23/2024 10:23 AM EDT NAY PITT Do you think it is wonderful to be alive now? Yes 07/23/2024 10:23 AM EDT RITESH PITT Do you feel pretty worthless the way you are now? No 07/23/2024 10:23 AM EDT RITESH PITT Do you feel full of energy? Yes 07/23/2024 10 :23 AM JARAD BURRIS Do you feel that your situat ion is hopeless? No 07/23/2024 10:23 AM RITESH BURRIS Do you think that most peopl e are better off than you are? No 07/23/2024 10:23 AM JARAD BURRIS Geriatric Depression Scale ( Short Version) Total 0 07/23/2024 10:23 AM RITESH BURRIS documented as of this encounter Plan of Treatment Upcoming Encounters Date Type Department Care Team (Late st Contact Info) Description 03/06/2025 11:30 AM EDT Office Visit [facility] [address] [place] [address] Rosemary Michelle NP [address] [place] [address] 07/15/2025 10:00 AM EDT Office Visit [facility] [address] [place] [phone] Rosemary Michelle NP [address] [place] [address] documented as of this encounter Procedures Procedure Name Priority Date/Time Associated Diagnosis Comments MM TOMOSYNTHESIS SCREENING BI 07/23/2024 11:12 AM EDT documented in this encounter Results * MM TOMOSYNTHESIS SCREENING BI (07/23/2024 11:12 AM EDT) Anatomical Region Laterality Modality Other 07/23/2024 11:1 2 AM EDT Narrative 07/23/2024 11:14 [place] [address] Mammography Report Signed Patient: MELIDA FELIPE MR#: [id number] : 1940 Acct:[id number] Age/Sex: 84 / F ADM Date: 07/23/24 Loc: MAMMO Attending Dr: Rosemary Michelle NP Ordering Physician: Rosemary Michelle NP Results: Date of Service: 07/23/24 Follow Up: Procedure(s): MM tomosynthesis screening BI Accession Number(s): [id number] cc: Rosemary Michelle NP; Simone Monk M.D. Patient Name: MELIDA FELIPE MR#: [id number] : 1940 Exam Date: 07/23/2024 Ordering Doctor: MUSA Michelle HEAVY LINE TECHNICIAN RADIOLOGY REPORT PROCEDURE: MM TOMOSYNTHESIS SCREENING BI COMPARISON: MG MAMM SCREEN 3D BROOK CAD, 06/03/2022. MM TOMOSYNTHESIS SCREENING BI, 06/21/2023. INDICATIONS: Screening Calculator Name NCI Breast Cancer Risk Assessment Tool 5 Year Breast Cancer Risk 1.90% Lifetime Breast Cancer Risk 2.20% Personal Breast Cancer No Personal Ovarian Cancer No Treatments None Family Cancers Grandfather-maternal with lung cancer at age 58. LOCATION: [facility] BREAST COMPOSITION: The breasts are heterogeneously dense,which may obscure small masses. FINDINGS: DIAGNOSTIC CATEGORY 2--BENIGN FINDING. NO CHANGE FROM COMPARISON. Scattered benign-appearing nodules are present. Scattered benign-appearing calcifications are present. Scattered benign-appearing lymph nodes are present. RIGHT BREAST: No significant suspicious finding. LEFT BREAST: No significant suspicious finding. RECOMMENDATIONS: ROUTINE MAMMOGRAM AND CLINICAL EVALUATION IN 12 MONTHS. PLEASE NOTE: A NORMAL MAMMOGRAM DOES NOT EXCLUDE THE POSSIBILITY OF BREAST CANCER. A CLINICALLY SUSPICIOUS PALPABLE LUMP SHOULD BE BIOPSIED. Dictated by: Herbert Cannon MD on 07/23/2024 at 11:11 Approved by: Herbert Cannon MD on 07/23/2024 at 11:12 Dictated By: Herbert Cannon M.D. Signed By: 07/23/24 1114 DD/ 1112 TD/TT: Wig Sales Consultant: Procedure Note Radiology, Radiologist, MD - 07/23/2024 [place] [address] Mammography Report Signed Patient: MELIDA FELIPE LMR#: [id number] : 1940Acct:[id number] Age/Sex: 84 / FADM Date: 07/23/24 Loc: MAMMO Attending Dr: Rosemary Michelle NP Ordering Physician: Rosemary Michelle NPResults: Date of Service: 07/23/24Follow Up: Procedure(s): MM tomosynthesis screening BI Accession Number(s): [id number] cc: Rosemary Michelle NP; Simone Monk M.D. Patient Name: MELIDA FELIPE MR#: [id number] : 1940 Exam Date: 07/23/2024 Ordering Doctor: MUSA Michelle CNP RADIOLOGY REPORT PROCEDURE: MM TOMOSYNTHESIS SCREENING BI COMPARISON: MG MAMM SCREEN 3D BROOK CAD, 06/03/2022. MM TOMOSYNTHESIS SCREENING BI, 06/21/2023. INDICATIONS: Screening Calculator Name NCI Breast Cancer Risk Assessment Tool 5 Year Breast Cancer Risk 1.90% Lifetime Breast Cancer Risk 2.20% Personal Breast Cancer No Personal Ovarian Cancer No Treatments None Family Cancers Grandfather-maternal with lung cancer at age 58. LOCATION: [facility] BREAST COMPOSITION: The breasts are heterogeneously dense,which may obscure small masses. FINDINGS: DIAGNOSTIC CATEGORY 2--BENIGN FINDING. NO CHANGE FROM COMPARISON. Scattered benign-appearing nodules are present. Scatteredbenign-appearing calcifications are present. Scattered benign-appearing lymph nodes are present. RIGHT BREAST: No significant suspicious finding. LEFT BREAST: No significant suspicious finding. RECOMMENDATIONS: ROUTINE MAMMOGRAM AND CLINICAL EVALUATION IN 12 MONTHS. PLEASE NOTE: A NORMAL MAMMOGRAM DOES NOT EXCLUDE THE POSSIBILITY OFBREAST CANCER. A CLINICALLY SUSPICIOUS PALPABLE LUMP SHOULD BE BIOPSIED. Dictated by: Herbert Cannon MD on 07/23/2024 at 11:11 Approved by: Herbert Cannon MD on 07/23/2024 at 11:12 Dictated By: Herbert Cannon M.D. Signed By:07/23/24 1114 DD/ 1112 TD/TT: Wig Sales Consultant: us Rosemary Michelle NP [facility] Final Result documented in this encounter Visit Diagnoses Not on filedocumented in this encounter Additional Health Concerns Assessment Noted Time PHQ-9 Depression Total Score: 1 07/23/20 24 10:21 AM EDT documented as of this encounter Care Teams Computer Systems Administrator Relationship Specialty Start Date End Date Rosemary Michelle NP [address] [place] [address] PCP - Tyron MCMAHON 01/31/24 10/01/24 Unallocated, [facility] MD [address] [place] [address] PCP - General Family Medicine 07/16/24 07/31/24 Simone Monk MD [address] [place] [address] PCP - General Family Medicine 08/01/24 Rosemary Michelle NP [address] [place] [address] Nurse Practitioner Family Medicine 12/05/23 documented as of this encounter
--- OUTSIDE RECORDS SUMMARY | 2025-02-20 11:41 | XMS_ITS | Encounter Summary ---
Author Organization [facility] Address [address] [facility] [place] [address] Care Team Providers Care Coat Presser Name Role Phone Rosemary Michelle NP Unavailable [phone] Simone Monk MD Primary Care Provider [phone] Encounter Details Date Type Department Care Team (Late Contact Info) Description 02/20/2025 Bamboo flowsheet [facility] [address] [place] [phone] Rosemary Michelle NP [address] [place] [address] Social History Tobacco Use Types Packs/Day Years [...] on file documented as of this encounter Plan of Treatment Upcoming Encounters Date Type Department Care Team (Late st Contact Info) Description 03/06/2025 11:30 AM EDT Office Visit [facility] [address] [place] [address] Rosemary Michelle, JUAN PABLO [address] [place] [address] 07/15/2025 10:00 AM EDT Office Visit [facility] [address] [place] [address] Rosemary Michelle NP [address] [place] [phone] documented as of this encounter Visit Diagnoses Not on filedocumented in this encounter Additional Health Concerns Assessment Noted Time PHQ-9 Depression Total Score: 1 07/23/20 24 10:21 AM EDT documented as of this encounter Care Teams Coat Presser Relationship Specialty Start Date End Date Simone Monk MD [address] [place] [address] PCP - General Family Medicine 08/01/24 Rosemary Michelle NP [address] [place] [address] Nurse Practitioner Family Medicine 12/05/23 documented as of this encounter
--- OUTSIDE RECORDS SUMMARY | 2025-02-20 11:41 | XMS_ITS | Patient Health Record ---
Author Organization [facility] Address [address] [place] [address] Care Team Providers Care New Car Make Ready Worker Name Role Phone Rosemary Michelle CNP Primary Care Provider Unavail able Allergies Allergen (clinical drug ingredient) Drug/Non Drug Allergy documented on EMR Reaction Allergy Type Onset Date Status amoxicillin Amoxicillin Unknown Drug Allergy Act pola sulfamethoxazole / trimethoprim Bactrim Unknown Drug Allergy Active Reason For Referral No Information Medications Medication SIG (Take, Route, Frequency, Duration) Notes Start Date End Date Status Prevacid 24HR 15 MG 1 capsule before a m eal Orally Once a day Not-Taking PreserVision AREDS 2 - as directed Orally Active Loratadine 10 MG 1 tablet Orally Once a day Not-Taking Clobetasol Propionate 0.05 % 1 application Externally Twice a day Not-Takin g Lansoprazole 15 MG 1 capsule before a m eal Orally Once a day Active Calcium 600 MG 1 tablet with meals Orally Twice a day Active Ibuprofen 200 MG 2 tablet with food o r milk as needed Orally BID Active Social History Tobacco Use: Social History Observation Description Date Details (start date - stop date) Never Smoker NA - NA Tobacco Use/Smoking Question Answer Notes Patient is a nonsmoker Plan Of Treatment No Information Insurance Providers Payer Name Payer Address Payer Phone Subscriber Number Group Number Insured Name Patient Relationship to Insured Coverage Start Date Coverage End Date [employer] DUAL ADV PRIMARY MEDICARE [address] [place] [phone] [id number] Melida Lyman Self - patient is the insured Medical (General) History Medical History History ICD Code 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
--- OUTSIDE RECORDS SUMMARY | 2025-02-20 11:41 | XMS_ITS | Clinical Summary ---
Author Organization [facility] [facility] Address [id number] [address] [place] [address] Care Team Providers Care Desulfurizer Machine Name Role Phone Unavailable Primary Care Provider Unavailabl e Social History Tobacco Use Types Packs/Day Years Used Date Smoking Tobacco: Never Assessed Childcare Answer Date Recorded Childcare Unknown 03/13/2019 Employment Answer Date Recorded Employment Unknown 03/13/2019 Comments Unknown Sex and Gender Information Value Date Recorded Sex Assigned at Not on file Legal Sex Female 11:54 AM EDT Gender Identity Not on file Sexual Orientation Not on file Plan of Treatment Health Maintenance Due Date Last Done Comments Depression Screening 1952 Tobacco Screening 1952 DTaP,Tdap and Td Vaccines (1 - Tdap) 01/26/1959 Zoster (Shingles) Vaccine (1 of 2) 01/26/1990 Fall Risk Screening 01/26/2005 Influenza Vaccine 06/02/2025 Medical Devices Not on file
--- OUTSIDE RECORDS SUMMARY | 2025-02-20 11:41 | XMS_ITS | Encounter Summary ---
Author Organization [facility] Address [address] [place] [facility] [place] [address] Care Team Providers Care Weight Caller Name Role Phone Rosemary Michelle POLITICAL CARTOONIST Unavailable [phone] Rosemary Michelle POLITICAL CARTOONIST Unavailable [phone] Unallocated, [facility]oms Provider Primary Care Provi bruno Simone Monk MD Primary Care Provider [phone] Encounter Details Date Type Department Care Team (Late st Contact Info) Description 07/23/2024 Orders Only [facility] [address] [place] [address] Rosemary Michelle, POLITICAL CARTOONIST [address] [place] [address] Social History Tobacco Use Types Packs/Day Years [...] hopeless Not at all 07/23/2024 10:21 AM RITESH BURRIS Patient Health Questionnaire -2 Score 0 07/23/2024 [...] way Not at all 07/23/2024 10:21 AM SPIKE BURRIS Patient Health Questionnaire-9 Score 1 07/23/2024 [...] to you? No 07/23/2024 10:23 AM EDT JARAD PITT Do you feel happy most of the time? Yes 07/23 10:23 AM EDT JARAD PITT Do you often feel helpless? No 07/23/2024 10 :23 AM EDT JARAD PITT Do you prefer to stay at [facility], rather than going out and doing new things? No 07/23/2024 10:23 AM RITESH BURRIS Do you feel you have more pr oblems with memory than most? No 07/23/2024 10:23 AM EDT NAY PITT Do you think it is wonderful to be alive now? Yes 07/23/2024 10:23 AM EDRITESH MICHELLE Do you feel pretty worthless the way you are now? No 07/23/2024 10:23 AM RITESH BURRIS Do you feel full of energy? Yes [...] Office Visit [facility] [address] [place] [address] Rosemary Michelle NP [address] [place] [phone] 07/15/2025 10:00 AM EDT Office Visit [facility] [address] [place] [address] Rosemary Michelle NP [address] [place] [phone] documented as of this encounter Procedures Procedure Name Priority Date/Time Associated Diagnosis Comments BI MAMMOGRAM SCREENING TOMOSYNTHESIS BILATERAL Routine 07/23/2024 11:26 AM EDT documented in this encounter Results * Bilateral screening mammogram with tomosynthesis (07/23/2024 11:26 AM EDT) Anatomical Region Laterality Modality Breast Bilateral Mammography Rosemary Michelle NP IMG BI PROCEDURES Final Result documented in this encounter Visit Diagnoses Not on filedocumented in this encounter Additional Health Concerns Assessment Noted Time PHQ-9 Depression Total Score: 1 07/23/20 24 10:21 AM EDT documented as of this encounter Care Teams Weight Caller Relationship Specialty Start Date End Date Rosemary Michelle NP [address] [place] [address] PCP - Tyron MCMAHON 01/31/24 10/01/24 Unallocated, [facility] MD [facility] [address] [place] [address] PCP - General Family Medicine 07/16/24 07/31/24 Simone Monk MD [address] [place] [address] PCP - General Family Medicine 08/01/24 Rosemary Michelle NP [address] [place] [address] Nurse Practitioner Family Medicine 12/05/23 documented as of this encounter
[2025-02-20 12:01] LABS: Bilirubin Urine NEGATIVE (NEGATIVE); Blood Urine NEGATIVE (NEGATIVE); Clarity Urine CLEAR (CLEAR); Color Urine LT. YELLOW (YELLOW); Glucose Urine UA NEGATIVE (NEGATIVE); Ketones Urine NEGATIVE (NEGATIVE); Leukocyte Esterase Urine NEGATIVE (NEGATIVE); Nitrite Urine NEGATIVE (NEGATIVE); Protein Urine NEGATIVE (NEG/TRACE); Urobilinogen Urine 0.2 EU/dL (0.2-1.0)
[2025-02-20 12:02] LABS: Basophils Percent Auto 0.5 % (0.2-2.0); Eosinophils Absolute Auto 0.1 10^3/uL (0.0-0.7); Eosinophils Percent Auto 1.6 % (0.9-7.0); Hematocrit 40.2 % (36.0-48.0); Hemoglobin 13.3 g/dL (12.0-16.0); Immature Granulocytes Abs Auto 0.02 10^3/uL (0.00-0.03); Immature Granulocytes Pct Auto 0.4 % (0.0-0.5); Lymphocytes Absolute Auto 1.2 10^3/uL (1.2-3.8); Lymphocytes Percent Auto 20.8 % (20.5-60.0); Mean Corpuscular HGB Conc 33.1 g/dL (29.9-35.2); Mean Corpuscular Hemoglobin 30.4 pg (26.7-34.0); Mean Corpuscular Volume 91.8 fL (81.0-99.0); Mean Platelet Volume 9.7 fL (9.5-13.5); Monocytes Absolute Auto 0.4 10^3/uL (0.3-0.8); Monocytes Percent Auto 7.6 % (1.7-12.0); Neutrophils Absolute Auto 3.8 10^3/uL (1.4-6.5); Neutrophils Percent Auto 69.1 % (43.0-75.0); Platelet Count 279 10^3/uL (150-450); Red Blood Count 4.38 10^6/uL (4.20-5.40); Red Cell Distribution Width 12.4 % (11.0-15.0); White Blood Count 5.5 10^3/uL (4.0-11.0)
[2025-02-20 12:02] LABS: Urine Microscopic Indicated NO
[2025-02-20 13:16] LABS: Alanine Aminotransferase 30 U/L (14-59); Albumin Level 3.7 g/dL (3.4-5.0); Alkaline Phosphatase 79 U/L (46-116); Aspartate Amino Transferase 20 U/L (15-37); Bilirubin Total 0.4 mg/dL (0.2-1.0); Calcium 9.6 mg/dL (8.5-10.1); Carbon Dioxide 32.7 mmol/L (21.0-32.0); Chloride 103 mmol/L (98-107); Estimated GFR (African America >60 (>=60 mL/min/1.73m^2); Estimated GFR (Non-African Ame >60 (>=60 mL/min/1.73m^2); Globulin 3.6 g/dL; Glucose 107 mg/dL (74-106); Potassium 3.7 mmol/L (3.5-5.1); Sodium 139 mmol/L (136-145); Total Protein 7.3 g/dL (6.4-8.2)
== END 2025-02-20 11:37 | disposition home or self-care (01) ==
LOC: LAB 11:39
PROVIDERS: PCP Nurse Practitioner; Visit Provider Nurse Practitioner
DX: I10 Essential (primary) hypertension (principal)
CPT/HCPCS: 36415; 80053; 81003; 85025

== ENCOUNTER 2025-02-21 15:50 | Emergency (ER) | payer MEDICARE, SELFPAY ==
[2025-02-21 15:56] VITALS: BP 156/70; PULSE 92; TEMP 36.6; O2SAT 97; BMI 22.3
--- NOTE | 2025-02-21 16:42 | ED.GENADUL1 ---
HPI HPI - General Adult General Chief complaint: Chest Pain Stated complaint: HIGH BP Time Seen by Provider: 02/21/25 16:00 Source: patient Mode of arrival: walk-in Limitations: no limitations History of Present Illness HPI narrative: Patient is a 85-year-old female who is presenting to the ER with elevated blood pressure. Patient's been having intermittent elevated blood pressures for the last 2 or 3 weeks. Patient came in because her blood pressure had a systolic in the 160s and 180s. Patient did see her nurse practitioner family care provider several days ago. Patient was not started on any blood pressure medication. Patient did have outpatient lab work done and a urine ordered that was done yesterday that was normal. Patient is to create a blood pressure log and she has an appointment in 2 weeks. Patient is coming to the ER with no headache, no chest pain or shortness of breath. No abdominal pain nausea or vomiting. Patient has no other acute complaints. Patient's was more worried about her blood pressure than she was. Patient is asymptomatic. Patient does have a electric blood pressure cuff at home. Patient feels that electric blood pressure cuff at home is higher than what the readings here are. Patient had a manual blood pressure when she initially arrived, 150s over 70s. All systems are negative except as noted/marked. All systems reviewed and otherwise negative. Nurses note and vital signs reviewed and patient is not hypoxic. General: The patient appears well and in no apparent distress. Patient is resting comfortably on cart. Patient is not toxic, lethargic, or listless Skin: Warm, dry, no pallor noted. There is no rash noted. No petechiae, purpura. Head: Normocephalic, atraumatic; no meningeal signs or symptoms Eye: Normal conjunctiva, no drainage, EOMI. PERRL Ears, Nose, Mouth, and Throat: oral mucosa is moist. Nares patent. Mouth without vesicles. Cardiovascular: Regular Rate and Rhythm, mild holosystolic murmur, gallop, rub Respiratory: Patient is in no distress, no accessory muscle use, lungs are clear to auscultation, no wheezing, rales or rhonchi Back: non-tender, no CVA tenderness bilaterally to percussion. No CT LS midline pain GI: no tenderness to palpation, no masses appreciated. No rebound, guarding, or rigidity noted. No distention. No pulsatile mass. Musculoskeletal: Patient has full range of motion of all of the extremities, no motor, sensory, or focal neurological deficits Neurological: A&O x4, normal speech Psychiatric: Cooperative Related Data Home Medications ?Medication ?Instructions ?Recorded ?Confirmed mupirocin 2 % topical ointment topical 02/21/25 Allergies Allergy/AdvReac Type Severity Reaction Status Date / Time amoxicillin Allergy Intermediate Rash Verified 02/21/25 16:00 PFSH PFSH Social History Little interest or pleasure in doing things: not at all Feeling down, depressed, or hopeless: not at all Exam Constitutional Vital Signs, click to edit/add: Last Vital Signs Temp 97.8 F 02/21/25 15:56 Pulse 92 H 02/21/25 15:56 Resp 18 02/21/25 15:56 BP 156/70 H 02/21/25 15:56 Pulse Ox 97 02/21/25 15:56 O2 Del Method Room Air 02/21/25 15:56 Course Vital Signs Vital signs: Vital Signs Temperature 97.8 F 02/21/25 15:56 Pulse Rate 92 H 02/21/25 15:56 Respiratory Rate 18 02/21/25 15:56 Blood Pressure 156/70 H 02/21/25 15:56 Pulse Oximetry 97 02/21/25 15:56 Oxygen Delivery Method Room Air 02/21/25 15:56 Temperature 97.8 F 02/21/25 15:56 Pulse Rate 92 H 02/21/25 15:56 Respiratory Rate 18 02/21/25 15:56 Blood Pressure 156/70 H 02/21/25 15:56 Pulse Oximetry 97 02/21/25 15:56 Oxygen Delivery Method Room Air 02/21/25 15:56 Medical Decision Making [facility] Narrative Medical decision making narrative: Patient seen and examined: 10 to 15 minutes of education was done on asymptomatic hypertension Differential diagnosis includes but is not limited to: Diagnostics and management: Patient will have laboratory studies Relevant laboratory interpretation: Labs and urine were reviewed from lab testing yesterday Shared decision making: I discussed with the patient the necessary laboratory findings and radiological findings. Social barriers to healthcare: There are no food insecurities, there is no issue with transportation, there are no insurance barriers. Disposition: I discussed with the patient and had education done for 10-15 minutes of asymptomatic hypertension. We have discussed cardiovascular risk. Patient has been told by Rosemary her nurse practitioner who takes care of her as a family provider to record her twice a day at 8 AM and 8 PM her Blood pressure. Patient states she is a generalized anxious person at baseline. Patient says that she has been looking at the clock and waiting till 8 AM and 8 PM exactly, but she does agree and admits there is some anxiety with watching the clock at certain times. Education on elevated blood pressure and having significant symptoms of headache, chest pain, shortness of breath, passing out, or any other acute complaints why to come back to the ER for further evaluation. Patient was very thankful for time.. Patient does have a mild holosystolic murmur. Patient's had this since she was a child. Patient will record her blood pressures twice a day and 3 at a certain time, she does agree that there is anxiety with this and that patient's blood pressure may be higher because she has been very focused on that time. Discharge Plan Discharge Chief Complaint: Chest Pain Clinical Impression: Elevated blood pressure reading Patient Disposition: Home, Self-Care Time of Disposition Decision: 16:35 Condition: Fair Prescriptions / Home Meds: No Action mupirocin 2 % ointment TOPICAL Print Language: Australian Instructions: Heart Healthy Diet (ED), Hypertension in the Older Adult (ED) Additional Instructions: Check your blood pressure twice a day, have your remind you once in the morning and once at nighttime to check your blood pressure see have more accurate readings then at a certain time every day. Follow-up with Rosemary for further recommendations on blood pressure medication as needed If you are having a significant headache, significant heavy chest pressure, severe shortness of breath, or any other acute complaints, return back to the ER for further evaluation. If your blood pressure is consistently greater than 210/110, return back to the ER. You have asymptomatic hypertension in the emergency room today. Either go to a drugstore, pharmacy, or where she is to her or your doctors office to have your blood pressure checked intermittently. A better idea is to buy a blood pressure cuff at home that is appropriate size, the pharmacist can help make sure that you use size is appropriate. Take your blood pressure twice a day for the next 1 to 2 weeks. If your blood pressure is consistently elevated 130/80, follow-up with your PCP for medication changes or adjustment as indicated. If you are having any significant headache, severe chest pain or heaviness or tightness, shortness of breath, passing out, or any other acute symptoms, please return to the ER for further evaluation or if you have any other acute concerns. Referrals: Rosemary Michelle NP [Primary Care Provider, Family Practice] - 1 week
== END 2025-02-21 16:48 | disposition home or self-care (01) ==
PROVIDERS: Emergency Provider Emergency Medicine; PCP Nurse Practitioner
DX: R03.0 Elevated blood-pressure reading, without diagnosis of hypertension (principal)
CPT/HCPCS: 99281

== ENCOUNTER 2025-07-28 11:28 | Outpatient (OUT) | payer MEDICARE, SELFPAY ==
--- OUTSIDE RECORDS SUMMARY | 2025-07-28 07:11 | XMS_ITS | Continuity of Care Document ---
Author Organization [facility] Address [address] [place] [address] Phone Care Team Providers Care Clinical Material Handler Name Role Phone Rosemary Michelle NP-C Primary Care Provider Rosemary Michelle NP-Erika Attending Provider Care Teams Patient Care Team Team Status: Active Member Role/Relationship Status Dates Rosemary Michelle NP-C Primary Care Provider Active Patient Care Team Team Status: Inactive Member Role/Relationship Status Dates Rosemary Michelle NP-C Primary Care Provider Active Start: July 28, 2025 End: July 28, 2025Rosemary Michelle NP-CAttending ProviderActiveStart: July 28, 2025 End: July 28, 2025 Chief Complaint and Reason for Visit Chief Complaint Admit Date Medicare Wellness July 28, 2025 1 0:03am Reason for Visit Admit Date Age-related osteoporosis wit hout current pathological fracture July 28, 2025 10:03am AMD (age-related macular degeneration), wet July 28, 2025 10:03am Anxiety July 28, 2025 1 0:03am Breast cancer screening by mammogram Oct janes 2024 10:03am Encounter for subsequent [facility] wellness visit (AWV) in Medicare patient July 28, 2025 10:03am HTN (hypertension) July 28, 2025 1 0:03am UTI symptoms July 28, 2025 1 0:03am Allergies, Adverse Reactions, Alerts Allergen Type Severity Reaction Last Updated Verified Status amoxicillin Allergy Unknown rash January 30, 2025 11:00am Yes Active sulfamethoxazole Allergy Unknown rash January 30, 2025 11:00am Y es Active trimethoprim Allergy Unknown rash January 30, 2025 11:00am Yes Active Social History Smoking Status Status Start Date End Date Date of Observa tion Never smoked tobacco (finding) December 08, 2023 10:54am Observation Status Observation Response Date of Response Legal Sex Female (finding) Sex Assigned At BirthFeBaldpate Hospit[facility]armenmn 1939 Family History Relationship Condition Age at Onset Recorded Date/T [place] father Diabetes mellitus Unknown DeceasedUnknownfamily memberDeceasedUnknownmotherDeceasedUnknownHistory of strokeUnknownsisterDeceasedUnknown Problems Active Problems Problem Diagnosis/Recorded Date Onset Date Stat us Subacute frontal sinusitis July 09, 2025 8:21am Un known Active Mixed urge and stress incontinence July 09, 2025 8 :21am Unknown Active Encounter for subsequent [facility] wellness visit (AWV) in Medicare patient July 09, 2025 8:20am Unknown Act pola Lichen sclerosus of vulva July 09, 2025 8:20am Unk nown Active Strain of left trapezius muscle July 09, 2025 8:21 am Unknown Active Age-related osteoporosis wit hout current pathological fracture July 09, 2025 8:19am Unknown Active Breast cancer screening by mammogram July 28 6:23am Unknown Active Chronic rhinitis July 09, 2025 8:19am Unknown Active UTI symptoms July 28, 2025 11:03am Unknown A ctive Lichen disease January 30, 2025 11:13am Unknown Acti ve Anxiety July 09, 2025 8:19am Unknown Act pola Dysuria July 09, 2025 8:20am Unknown Act pola Osteoarthritis January 30, 2025 11:14am Unknown Acti ve Sinusitis January 30, 2025 11:53am Unknown Active DDD (degenerative disc disea se), cervical July 09, 2025 8:19am Unknown Active Neoplasm of uncertain behavior July 09, 2025 8:21a m Unknown Active GERD without esophagitis July 09, 2025 8:20am Unkn own Active Neck pain December 08, 2023 12:30pm Unknown Acti ve AMD (age-related macular deg eneration), wet January 30, 2025 11:09am Unknown Active HTN (hypertension) July 09, 2025 8:20am Unknown Active Macular degeneration July 09, 2025 8:20am Unknown Active Inactive/Resolved Problems Problem Diagnosis/Recorded Date Onset Date Stat GERD (gastroesophageal reflux disease) December 08, 2023 11:54am Unknown Resolved Seasonal allergic rhinitis December 08, 2023 11:54am Unk nown Resolved Medications Medication Status Dose Units Route Directions Qty Days Refills S tart Date Stop Date End Date Reason(s) Instructions Adherence Loratadine (Claritin) 10 mg tablet Discontinued 1 TAB PO Daily December 08, 2023 1:00am[facility] 2024 2:41pmFreeTextSi tablet Orally Once a day; Note: Source Status: Taking; Provider: Gretel Gutierrez ( ) Fluticasone Propionate (Flonase Allergy Relief) 50 mcg/actuation spray,cpycemgatcKviqvkkvurox5ICOTNOYEFQYGBTNZzxzmAocrx 2023 1:00amOcts[facility] 2024 10:45amFreeTextSi spray in each nostril Nasally Once a day; Note: Source Status: Not-Taking\PRN; Provider: Gretel Gutierrez ( )Vit G-M-Migowc-Zinc-Lutein (Preservision Lutein) 226-90-0.8-5 mg capsuleActiveCAPPO December 08, 2023 1:00amComplies with drug aeasbqqRh-Tm-Yb7-Iht-Olv-Dvot-Lut-Kat (Ocuvite Adult 50 Plus) 250 mg (90 mg-160 mg) bniebrzCbfzexqdsndx0BSTUXSoksr December 08, 2023 1:00amOcts[facility] 2024 10:44amCalcium Carbonate (Calcium 500) 500 mg calcium (1,250 mg) tablet,sityewwdTavnxm471QHNMCusdbUufpi 2023 1:00amComplies with drug therapyLansoprazole 15 mg capsule,delayed release(DR/EC)Ifpddk57BLMYImpddJjnuq 2023 1:00amComplies with drug therapy Prednisone 20 mg uyabguRbinttjfrbbn38IDUIKkxbj543Bfqkz 2023 1:00amOctober 2024 2:41pmLoratadine (Claritin) 10 mg rydhrjFqwjii28NFKYCbodjYukvkhl 2024 2:40pmComplies with drug therapyFluticasone Propionate (Flonase Allergy Relief) 50 mcg/actuation spray,dpmypsdbhoMwtjrn4HCMMFBPEQRZIVFQYyqth July 28, 2025 10:45amFreeTextSi spray in each nostril Nasally Once a day; Note: Source Status: Not-Taking\PRN; Provider: Gretel Gutierrez ( )Complies with drug therapyAzithromycin 250 mg robdtoLfpafexfsacj2OZ .HDYSNSB66Ckw 2024 12:00amOct2024 2:42pmFor 250 mg dose pack: take 500 mg today (day 1), then 250 mg for 4 days (days 2-5) POPrednisone 20 mg jtmfxeFnfhrnyqtiiu70AZOOLbjdu299Oeiukud 10th, 2025 2:41pmOctsaint claire medical center 2024 6:21amBuspirone 5 mg qpbrkdNjzdll7GGSPRbpiu dailyOct2024 12:00am Complies with drug therapyClobetasol 0.05 % pjbdsIcjqmj3EWTGQFYCEJVVCFyqdq daily as neededOct2024 12:00amComplies with drug therapyPrednisone 20 mg soztxvPdleyqpkurym31ZZMDHwilk237Puvcngw 2024 6:21amOctober 2024 10:33amLatanoprost 0.005 % ndwhhNzlbmt9YJADIOSIKUOYNLTskpktLdddtrg 27th, 2025 12:00amComplies with drug therapyLisinopril 5 mg pohnjbYsqomp6GOGZWaigv170 July 28, 2025 12:00amHypertension Essential (primary) hypertensionComplies with drug therapy Immunizations Immunization Event Date Not Given Reason Dose Number Standards Engineer Lot Number Reason(s) Given Vaccine Information Statement (VIS) Detail Administration Location Tetanus, Diphtheria adult, 5 Lf pres free abs Se ptember 2015 Vital Signs Vital Reading Result Reference Range Collection Date/Time Height 58 [in_i] July 28, 2025 10:43gbJsmype86.52 kgOctsaint claire medical center 2024 10:15amBody Fvhtendgbvc04.1 [degF]97.6-99.0Octs[facility] 2024 10:15amHeart Rate83 /ztn04-334 July 28, 2025 10:15amRespiratory rate18 /uuj13-54Eojbkyp 2024 10:15am Oxygen saturation by Pulse qyuevagf91 %95-100Oct[facility] 2024 10:15amBP Bgxynahg413 mm[Hg]100-140Oct[facility] 2024 10:15amBP Yusnbbqep42 mm[Hg]60-100 July 28, 2025 10:15amBMI (Body Mass Index)24.6 kg/f8Kjurbcj 2024 10:15am Advance Directives Advance Directive Response Recorded Date/ Time Advance Directives No December 07 11:36am Insurance Providers Guarantor Melida Lubin Esmer Address [address] [facility] [address]Hktnqsu Info.Home Phone: Payer Group Member ID Coverage Type Subscriber Relationship to Subscriber Effective Date Expiration Date Tyron MARYAM PFFS Id: [id number] Tristian Esmer Id: [id number] [address] [facility] [address] Home Phone: Self Encounters Encounter Location(s) Arrival/Admit Date Discharge/Departure Date Discharge/Departure Disposition Provider(s) Departed Physician/ Provider Office Visit -[facility] [place] July 28, 2025 10:03am July 28, 2025 11:08am Discharged to home care or self care (routine discharge) MAGO CarrollC Recent Diagnosis Onset Date Admit Date Age-related osteoporosis wit hout current pathological fracture Unknown July 28, 2025 10:03am AMD (age-related macular degeneration), wet Unkn own July 28, 2025 10:03am Anxiety Unknown July 28 10:03am Breast cancer screening by mammogram Unknown July 28, 2025 10:03am Encounter for subsequent [facility] wellness visit (AWV) in Medicare patient Unknown July 28, 2025 10:03am HTN (hypertension) Unknown July 28, 2025 10:03am UTI symptoms Unknown July 28 10:03am Assessments Diagnosis Onset Date Resolution Status Admit Date Age-related osteoporosis without current pathological fracture acuteOct2024 10:03amAMD (age-related macular degeneration), wetacute July 28, 2025 10:03amAnxietyacuteOctober 2024 10:03amBreast cancer screening by mammogramacuteOctober 2024 10:03amEncounter for subsequent annual wellness visit (AWV) in Medicare patientacuteOctober 2024 10:03am HTN (hypertension)acuteOctober 2024 10:03amUTI symptomsacuteOctober 2024 10:03am Plan of Treatment Author Rose[facility]AuthoredOctober 2024 11:03amReviewed Ht/Wt/BMI Recommend eye exams yearly Recommend dental exam: twice a year Balance work/leisure activities exercise is recommended most days of the week (appropriate as chronic conditions allow) follow up yearly and prn elevated in the past, no current meds for this recommend avoiding drugs that can increase BP if possible (decongestants, NSAIDS), low sodium diet under care of opthamology does take pressur vision eye vitamins order DEXA scan is scheduled continue buspar does once a day prn Future Tests Future scheduled test information is unavailable Pending Tests Test Name Ordered Date Scheduled Date Comprehensive Metabolic Panel July 28, 2025 6:23am MM diagnostic mammo BI w/CADOctober 2024 6:23am Future Visits Future appointment information is unavailable Future Procedures Procedure Name Ordered Date Scheduled Date Dipstick and Microscopic July 28, 2025 6:23 am Complete Blood Count Auto DiffOctober 2024 6:23amUrine CultureOctober 2024 11:03amVitamin D 25 Hydroxy TotalOctober 2024 6:23am Future Medications Future medication information is unavailable Patient Instructions Patient instructions are unavailable
--- OUTSIDE RECORDS SUMMARY | 2025-07-28 11:36 | XMS_ITS | Clinical Summary ---
Author Organization [facility] Address [address] [place] [address] Care Team Providers Care Slot Floorperson Name Role Phone JoseShameka steelea [employer] M[employer]ER Unavailable [phone] Rosemary Michelle [employer] M[employer]ER Unavailable [phone] Simone Monk MD Primary Care Provider [phone] Allergies Active AllergyReactionsCriticalityNoted VikiFfrivapeBzipybmpaiiLwaaj10/05/2024 Sulfamethoxazole-TjbhiyfuonubNafcd42/05/2024 Medications MedicationSigDispense QuantityRefillsLast FilledStart DateEnd DateStatus Multiple Vitamins-Minerals (PreserVision AREDS 2) capsule Active calcium carbonate (Super Calcium) 1500 (600 Ca) MG tablet every 12 (twelve) hoursActive ibuprofen 200 MG tablet every 12 (twelve) hoursActive loratadine (Claritin) 10 MG tablet 1 (one) time each day at the same timeActive lansoprazole (Prevacid) [address] capsule 1 (one) time each day at the same timeActive clobetasol (Temovate) 0.05 % cream Apply 1 Application topically every 12 (twelve) hoursActive busPIRone (Buspar) 5 MG tablet Indications:AnxietyTake 1 tablet (5 mg) by mouth every 12 (twelve) hours if needed (anxiety) 60 tablet 5Active clobetasol (Temovate) 0.05 % cream Indications:Lichen simplex chronicusApply to affected areas, up to twice a day when flared, do not use one the face, groin, or underarms, 30 day supply 60 g 1105Active fluticasone (Flonase) 50 MCG/ACT nasal spray Administer 2 sprays into each nostril Daily Shake gently. Before first use, prime pump. After use, clean tip and replace cap.Active Active Problems ProblemNoted DateDiagnosed ByztTaggekl64/05/2025 Assessment & Plan (04/23/2025 10:09 AM EDT): Current meds: lary Daily prn if she wants Assessment & Plan (03/06/2025 1:05 PM EDT): Add buspar Advised how to take, and side effects Fu in 6 weeks Neoplasm of uncertain wgtodjsf60/05/2025 Assessment & Plan (03/06/2025 1:05 PM EDT): Refer to derm Bzakvlawhvma35/22/2025 Assessment & Plan (04/23/2025 10:09 AM EDT): Will continue to monitor no meds at this time Ok with range 130 low 140's DBP are good If >150/90 let office know Assessment & Plan (03/06/2025 1:04 PM EDT): Will try treating for anxiety Only have her check BP evening time 3-4 days per week Fu in 6 weeks Assessment & Plan (02/20/2025 10:55 AM EDT): Log book given Script for BP cuff for home monitoring BID, fu in 2 weeks Check labs and EKG No red flag sxs Unsure if this represents some underlying anxiety, or possible white coat htn Needs flu shot07/23/2024Subacute frontal dwytclbhw86/22/2024Encounter for subsequent annual wellness visit (AWV) in Medicare kmcamod1007/23/2024 Assessment & Plan (07/23/2024 10:55 AM EDT): Reviewed Ht/Wt/BMI Recommend eye exam yearly Recommend dental exams twice a year Balance work/leisure activities Exercises is recommended most days of the week (appropriate as chronic conditions allow) Follow up yearly and prn Macular mrvpwlbkneuj45/13/2024hronic vfofhhpm01/13/2024 Assessment & Plan (04/23/2025 10:10 AM EDT): Cont allergy meds and nasal spray Sinuses not a new finding DDD (degenerative disc disease), rxsivyuc40/13/2024Lichen sclerosus of vulva 12/13/2023Gastroesophageal reflux disease without amxfuqrbwpg83/13/2024ge- related osteoporosis without current pathological /13/2024Mixed urge and stress /13/2024Trapezius muscle strain, left, subsequent jsxvnpwan61/13/2024 Assessment & Plan (01/17/2024 2:49 PM EDT): [...] pressure d/t pain Fu in 1 weeks Qsyxxjo5412/05/2023 Assessment & Plan (12/05/2023 2:53 PM EST): Office urine dip, no nitrates or leukocytes Will send for culture fluids Resolved Problems ProblemNoted DateDiagnosed DateResolved DateOpen wound02/20/149915/5Acute non-recurrent gtzgtzkgihia38/27/202410/ Assessment & Plan (12/27/2023 9:10 AM EDT): Rest, fluids, finish atb Fu if not better Trapezius muscle strain, left, initial legxrykbz50/ Assessment & Plan (12/05/2023 2:54 PM EST): Ibuprofen OTC BID for 7 days Ice 4-5 times daily Hand out on stretching exercises Fu if not better in a week Immunizations ImmunizationAdministration DatesNext DueInfluenza Whole10/11/2012Influenza, High-dose Seasonal, Quadrivalent, Preservative Free10/,07/24/2021 Influenza, Seasonal, Quadrivalent, Qjteeozkzq46/25/2023,07/19/2022,07/16/2020 Influenza, seasonal, qiydzvplxw18/10/2014Influenza, trivalent, adjuvanted 07/23/2024Tdap06/11/2016 Social History Tobacco UseTypesPacks/DayYears UsedDateSmoking Tobacco: NeverSmokeless Tobacco: Never Tobacco Cessation:Counseling Given: Not Answered Alcohol UseStandard Drinks/WeekCommentsNever0 (1 standard drink = 0.6 oz pure alcohol)caffine: coffiee 2 daily and sodaPHQ-2AnswerDate RecordedPatient Health Questionnaire-2 Fbjzm434CommentsUnknownSex and Gender InformationValueDate RecordedSex Assigned at BirthNot on fileLegal SexFemale 12/14/2022 6:58 PM EDTGender IdentityNot on fileSexual OrientationNot on file Last Filed Vital Signs Vital SignReadingTime TakenCommentsBlood Gvjrcccb888/7007 10:03 AM EDT Qrbcy779904/23/2025 9:31 AM EBXMeijjywimtu75.7 ??C (98.1 ??F)04/23/2025 9:31 AM EDTRespiratory Pave598704/23/2025 9:31 AM EDTOxygen Talumubohj44%04/23/2025 9:31 AM EDTInhaled Oxygen Concentration--Fqxyhl08.6 kg (118 lb 3.2 oz)04/23/2025 9:31 AM YEKUuupwn746.1 cm (4' 9.5 )07/23/2024 10:14 AM EDTBody Mass Index25.14 07/23/2024 10:14 AM EDT Plan of Treatment Health MaintenanceDue DateLast DoneCommentsInfluenza Vaccine (#1)06/02/2025 07/23/2024, 07/26/2023, 07/19/2023, Additional history existsMedicare Annual Wellness (AWV), 07/23/2024, 07/03/2023, Additional history existsPneumococcal Vaccine: 65+ YearsDiscontinued Insurance Care Teams Team MemberRelationshipSpecialtyStart DateEnd Date Rosemary Michelle NP [address] [place] [address] PCP - [place]01/31/24 Simone Monk MD [address] [place] [address] PCP - GeneralFamily Qugqslac49/31/24 Rosemary Michelle NP Nurse PractitionerFamily Medicine12/05/23
--- OUTSIDE RECORDS SUMMARY | 2025-07-28 11:36 | XMS_ITS | Clinical Summary ---
Author Organization [facility] tem Address [id number] [place] [address] Care Team Providers Care Laborer Electroplating Name Role Phone Unavailable Primary Care Provider Unavailabl e Social History Tobacco UseTypesPacks/DayYears UsedDateSmoking Tobacco: Never AssessedChildcare AnswerDate UggbyphrRaiotcnwzFadjorw52/12/2019EmploymentAnswerDate Recorded LxruxycwgxBznlszl05/12/2019CommentsUnknownSex and Gender Information ValueDate RecordedSex Assigned at BirthNot on fileLegal AfdJeepxv63/06/2015 11:54 AM EDTGender IdentityNot on fileSexual OrientationNot on file Plan of Treatment Health MaintenanceDue DateLast DoneCommentsDepression Udmuevuwj54/27/1952Tobacco Msphfctoz84/27/1952DTaP,Tdap and Td Vaccines (1 - Tdap)01/26/1959Zoster (Shingles) Vaccine (1 of 2)01/26/1990Fall Risk Jrsibidtd93/27/2005Influenza Ftuhzww4806/02/2025 Medical Devices Not on file
--- OUTSIDE RECORDS SUMMARY | 2025-07-28 11:58 | XMS_ITS | CCD ---
Author Organization [facility] Care Team Providers Care Site Specialist Name Role Phone MIGUEL ANGEL TAX ASSISTANT ROSEMARY Admitting Unavailable AICHHOLZ, TAX ASSISTANT ROSEMARY Attending Unavailable DR SIMONE LOVELACE Primary Care Unavailable WEST, DR DIETER Garcia Consulting Unavailable AICHHOLZ, MUSA ROSEMARY Consulting Unavailable AICHHOLZ, TAX ASSISTANT ROSEMARY Admitting Unavailable AICHHOLZ, TAX ASSISTANT ROSEMARY Attending Unavailable DR SIMONE LOVELACE Primary Care Unavailable AICHHOLZ, TAX ASSISTANT ROSEMARY Consulting Unavailable MYRTLE Majano Attending Provider Brenda Majano Unavailable Aicivette TEACHER PHYSICALLY IMPAIRED, Rosemary Unavailable Miguel Angel TEACHER PHYSICALLY IMPAIRED, Rosemary Unavailable Unallocatskyler ZAIDI, Maynor Provider Primary Care Provi bruno Rosemary Michelle Primary Care Provider [phone] Natalie Miller APRN Attending Provider Rosemary Michelle Primary Care Unavailable Natalie Miller Attending Unavailable Natalie Miller Admitting Unavailable Simone Lovelace MD Primary Care Provider ROSEMARY MICHELLE Attending Unavailable MIGUEL ANGEL ROSEMARY Attending Unavailable RUFINO CORREIA Attending Unavailable JOSEHHOLZ, ROSEMARY Referring Unavailable AICHHOLZ, ROSEMARY Attending Unavailable JOSEHFÁTIMA, ROSEMARY Attending Unavailable Allergies Allergy ClassificationReported Allergen(s)Allergy TypeDate of OnsetReaction(s) Facility (16 sources)AmoxicillinDrug Sstbmjp79-63-1343gdss, [facility] (14 sources)Sulfamethoxazole / TrimethoprimDrug Xptmrjw25-27-9221wtsx, [employer] [facility] Other (3 sources)Sulfamethoxazole; Translations: [sulfamethoxazole]Drug Allergy 31-56-2054njftPyxteagetPomerene Hospital (3 sources)Trimethoprim; Translations: [trimethoprim]Drug Hmhdboq71-40-3034eurmRegency Hospital Company (1 source)AmoxicillinDrug Scapdjn83-73-5212BijiyuufhSt. Anthony'S Hospital Repository Medications Current Medications MedicationDrug Class(es)DatesSig (Normalized)Sig (Original)ascorbic acid 113 mg / copper gluconate 0.4 mg / docosahexaenoic acid 87.5 mg / eicosapentaenoic acid 163 mg / lutein 2.5 mg / tocopherol acetate 100 unt / zeaxanthin 0.5 mg / zinc oxide 17.4 mg oralcapsule (14 sources)Vitamin CMultiple Vitamins-Minerals (PreserVision AREDS 2) capsule ActivePreserVision AREDS 2 - as directed Orally Activeascorbic acid 226 mg / cuprous oxide 0.8 mg / dl-alpha tocopheryl acetate 200 unt / lutein 5 mg / zinc oxide 34.8 mg oral capsule (2 sources)Vitamin CStart: 30-92-0712Lpb W-K-Enmgnu-Zinc-Lutein (Preservision Lutein) 226-90-0.8-5 mg capsule Active CAP PO December 08, 2023 1:00amazithromycin 250 mg oral tablet (5 sources)Macrolide AntimicrobialStart: 77-98-9695Dqhddsvbjeed 250 mg tablet Active 0 PO .COMPLEX January 30, 2025 12:00am For 250 mg dose pack: take 500 mg today (day 1), then 250 mg for 4 days (days 2-5) POStart: 30-38-2649qolbtroaetyu (Zithromax) 250 MG tablet Indications: Subacute frontal sinusitis 2 pills day #1, and then 1 pill day #2-#5 6 tablet 07/23/2024 ActivebusPIRone hydrochloride 5 mg oral tablet (8 sources)Start: 03-06-2025 End: 35-41-9778nwbm 1 tablet by mouth oncebusPIRone (Buspar) 5 MG tablet Indications: Anxiety Take 1 tablet (5 mg) by mouth every 12 (twelve)hours if needed (anxiety) 60 tablet 1 03/06/2025 ActiveCalcium (1 source)Phosphate Binder, CalciumCalcium Activecalcium carbonate 1250 mg chewable tablet (15 sources)Start: 59-45-2771dnev 1 tablet by mouth once dailyCalcium Carbonate (Calcium 500) 500 mg calcium (1,250 mg) tablet,chewable Active 500 MG PO Daily December 08, 2023 1:00amcalcium carbonate (Super Calcium) 1500 (600 Ca) MG tablet every 12 (twelve) hours Activeclobetasol propionate 0.5 mg/ml topical cream (18 sources)CorticosteroidStart: 35-90-3527fntxmnkuul (Temovate) 0.05 % cream Indications: Lichen simplex chronicus Apply to affected areas, up to twice a day when flared, do not use one the face, groin, or underarms, 30 day supply 60 g 03/13/2025 Activeclobetasol (Temovate) 0.05 % cream Apply 1 Application topically every 12 (twelve) hours Activefluticasone propionate 0.05 mg/actuat metered dose nasal spray (5 sources)CorticosteroidStart: 20-58-7588szmu 1 spray(s) nasal route once daily Fluticasone Propionate (Flonase Allergy Relief) 50 mcg/actuation spray,suspension Active 1 SPRAY INTRANASAL Daily December 08, 2023 1:00am FreeTextSi spray in each nostril Nasally Once a day; Note:Source Status: Not-TakingundefinedPRN; Provider: Gretel Gutierrez ( )take 2 spray(s) nasal route once dailyfluticasone (Flonase) 50 MCG/ACT nasal spray Administer 2 sprays into each nostril Daily Shake gently. Before first use, prime pump. After use, clean tip and replace cap. Activetake 1 spray(s) nasal route once dailyFlonase 50 MCG/ACT 1 spray in each nostril Nasally Once a day Not-Takingibuprofen 200 mg oral tablet (13 sources)Nonsteroidal Anti-inflammatory Drugibuprofen 200 MG tablet every 12 (twelve) hours Activelansoprazole 15 mg delayed release oral capsule (16 sources)Proton Pump InhibitorStart: 31-08-4752ujxl 1 capsule by mouth once dailyLansoprazole 15 mg capsule,delayed release(DR/EC) Active 15 MG PO Daily December 08, 2023 1:00amloratadine 10 mg oral tablet (16 sources)Start: 74-86-2894wwuu 1 tablet by mouth once dailyLoratadine (Claritin) 10 mg tablet Active 1 TAB PO Daily December 08, 2023 1:00am FreeTextSi tablet Orally Once a day; Note: Source Status: Taking; Provider: Gretel Gutierrez ( )Aw-Ai-Bu5-Sjz-Ytm-Ldrt-Lut-Kat (Ocuvite Adult 50 Plus) 250 mg (90 mg-160 mg) capsule (2 sources)Start: 38-53-8026xola 1 capsule by mouth once daily Hh-Jc-Um2-Nai-Rgm-Juya-Lut-Kat (Ocuvite Adult 50 Plus) 250 mg (90 mg-160 mg) capsule Active 1 CAP PO Daily December 08, 2023 1:00ampredniSONE 20 mg oral tablet (2 sources)Start: 33-78-3931knzq 2 tablets by mouth once dailyPrednisone 20 mg tablet Active 40 MG PO Daily 6 3 December 08, 2023 1:00am Completed/Discontinued Medications MedicationDrug Class(es)DatesSig (Normalized)Sig (Original)Ascorbic Acid / Beta Carotene / cuprous oxide / Lutein / sodium selenate / Vitamin E / Zinc Oxide (1 source)Vitamin COcuvite Not-TakingAspirin (1 source)Platelet Aggregation Inhibitor, Nonsteroidal Anti-inflammatory Drug Baby Aspirin Not-Takingcephalexin 250 mg oral capsule (1 source)Cephalosporin AntibacterialStart: 54-53-8329tgik 1 capsule by mouth every six hoursCephalexin 250 MG 1 capsule Orally Four times a day for 10 day(s) Jun, Not-Takingclindamycin 300 mg oral capsule (1 source)Lincosamide AntibacterialStart: 72-10-0801Vvkcdbumtsh HCl 300 MG 1 capsule Orally 7 for 7 days Jun, Not-Takingdoxycycline monohydrate 100 mg oral tablet (1 source)Tetracycline-class DrugStart: 01-68-0137xnzd 1 tablet by mouth every twelve hoursDoxycycline Monohydrate 100 MG 1 tablet Orally every 12 hrs for 7 days Jun, Not-TakingMupirocin (1 source)RNA Synthetase Inhibitor AntibacterialStart: 96-28-2573Cjjdukxiw 2 % 1 application to affected area Externally bid for 7 days Mar, Not-Taking Problems Active Problems Problem ClassificationProblemDateDocumented DateEpisodic/ChronicAnxiety disorders (12 sources)Anxiety; Translations: [Anxiety disorder, unspecified]Onset: 156222-96-8782DncjvzwKoeuakrjar disorders (20 sources)Gastro-esophageal reflux disease without esophagitis; Translations: [Gastroesophageal reflux disease without esophagitis]Onset: 24-20-1403Ojtspsn Essential hypertension (13 sources)Hypertensive disorder; Translations: [Essential (primary) hypertension]Onset: 331629-94-7999GrrqbsrTcbtqvqvssvdq symptoms and ill- defined conditions (15 sources)Incontinence; Translations: [Mixed incontinence]Onset: 12-13-2023 10-07-5979BlootzaJzctaxpdv of unspecified nature or uncertain behavior (14 sources)Neoplastic disease of uncertain behavior; Translations: [Neoplasm of uncertain behavior, unspecified]Onset: 554906-65-0168Iedyuvbx Osteoarthritis (2 sources)Osteoarthritis; Translations: [Unspecified osteoarthritis, unspecified site]09-70-8451FvfdeimAhhqgdyjikng (15 sources)Senile osteoporosis; Translations: [Age-related osteoporosis without current pathological fracture]Onset: 194540-51-8839TtwbknhIprzc connective tissue disease (1 source)Pain in right footEpisodicOther connective tissue disease (1 source)Calcaneal spur, right footEpisodicOther inflammatory condition of skin (2 sources)Lichen; 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]16-65-1406Dzxfwnox Other inflammatory condition of skin (2 sources)Lichen simplex chronicus; 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] 46-65-0115VypjwvfzVevrl screening for suspected conditions (not mental disorders or infectious disease) (4 sources)Encounter for screening mammogram for malignant neoplasm of breast; Translations: [ENC SCR MAMMO MALIG NEOPLASM BREAST]Onset: 47-89-3739Tnijzymb Other upper respiratory disease (15 sources)Chronic rhinitis; Translations: [Chronic rhinitis]Onset: 12-13-2023 85-00-5576TxqbdhiVrnlx upper respiratory disease (2 sources)Seasonal allergic rhinitis; Translations: [Other seasonal allergic rhinitis]89-60-8235LtytaihWouzh upper respiratory infections (4 sources)Sinusitis; Translations: [Chronic sinusitis, unspecified]01-30-2025 ChronicResidual codes; unclassified (1 source)Family history of malignant neoplasm of trachea, bronchus and lung; Translations: [FAM HX MALIG NEOPLSM TRACH BRON LNG]Onset: 53-70-2421Nxvejggs Retinal detachments; defects; vascular occlusion; and retinopathy (15 sources)Degenerative disorder of macula ; Translations: [Unspecified macular degeneration]Onset: 266560-88-1231JrzkaojYmetcweazwm; intervertebral disc disorders; other back problems (13 sources)Degeneration of cervical intervertebral disc; Translations: [Other cervical disc degeneration, unspecified cervical region]Onset: 12-13-2023 83-99-7424BfluxhnHugqdldcbmu; intervertebral disc disorders; other back problems (2 sources)Neck pain; Translations: [Cervicalgia]57-69-6053Wvafbipc Past or Other Problems Problem ClassificationProblemDateDocumented DateEpisodic/ChronicGenitourinary symptoms and ill-defined conditions (17 sources)Frequency of micturition; Translations: [Dysuria]Onset: 06-01-2022 55-49-7211YlpvvdabAlfpidpkihunj and screening for infectious disease (14 sources)Needs influenza immunization; Translations: [Encounter for immunization]Onset: 578864-20-9409SufxvoiaSttj disorders (12 sources)Mood disordersOnset: Other female genital disorders (13 sources)Leukoplakia of vulva; Translations: [Circumscribed scleroderma] Onset: 576820-27-6861MocwxfdoKvxlx injuries and conditions due to external causes (9 sources)Open wound; Translations: [Other injury of unspecified body region, initial encounter]Onset: 02-20-2025 Resolved: 078875-08-6346BqzlppuxTbmjp upper respiratory infections (20 sources)Acute pansinusitis; Translations: [Acute pansinusitis, unspecified] Onset: 12-27-2023 Resolved: 080575-09-2662WtfecxtpGuxsemz and strains (20 sources)Strain of left trapezius muscle; Translations: [Strain of other muscles, fascia and tendons at shoulder and upper arm level, left arm, subsequent encounter]Onset: 12-05-2023 Resolved: 40-93-321005438284-30-8708Clqyjjvp Results Test NameValueInterpretationReference RangeFacilityNo Panel Informationon 22-14-8966Buyx of biopsy: tangential Informed consent: discussed and consent obtained Informed consent comment: The risks and benefits of the biopsy were discussed. Risks include but are not limited to bleeding, infection, scarring, pain, and nerve damage. An opportunity to ask questions prior to the procedure was permitted and all questions were answered. Patient was prepped and draped in usual sterile fashion: area cleansed with alcohol. Anesthesia: the lesion was anesthetized in a standard fashion Anesthetic: 1% lidocaine w/ epinephrine 1-100,000 buffered w/ 8.4% NaHCO3 Instrument used: DermaBlade Hemostasis achieved with: electrodesiccation Outcome: patient tolerated procedure well Outcome comment: The specimen was placed in a prelabeled formalin container to be sent for pathology Post-procedure details: sterile dressing applied and wound care instructions given Post-procedure details comment: Emphasized need to contact clinic for any signs of infection, uncontrollable bleeding, or complications. Dressing type: bandage Additional details: Photo taken yes Amount of lidocaine used: 1.0 ccNOMS HealthcareNOMS HealthcareUrine Cultureon 18-29-8124Vkxdxxdo identified Cx Nom (U)<9,000 colonies/ml mixed bacterial skin contaminants 2 Days PERFORMED BY: [place] [address] PATHOLOGIST [employer] SALES SUPERVISOR KEN SEPULVEDA M.D.[facility] Physician GroupComment on above: Performed By: #### CUU #### [place] [address] USATBH UA (CLEAN/CATCH) MICROSCOPIC IF INDICATEon 07-26-2024 BILIRUBIN URINENegativeNEGATIVENOMS HealthcareBLOOD URINETRACE-INEGATIVENOMS HealthcareClarity (U)CLEARCLEARNOMS HealthcareColor (U)LT. YELLOWYELLOWNOMS HealthcareGLUCOSE URINE UANegativeNEGATIVE mg/dLNOMS HealthcareInterpretation and review of laboratory resultsAbnormalNOMS HealthcareKetones Ql (U)Negative NEGATIVE mg/dLNOMS HealthcareLeukocyte esterase Test strip Ql (U)TRACEAbnormal NEGATIVENOMS HealthcareNITRITE URINENegativeNEGATIVENOMS HealthcarepH (U)6.5 [pH]5.0 - 9.0NOMS HealthcarePROTEIN URINENegativeNEG/TRACE mg/dLNOMS Healthcare SPECIFIC GRAVITY URINE1.0201.005 - 1.025NOMS HealthcareURINE MICROSCOPIC INDICATEDYESNOMS HealthcareUROBILINOGEN URINE0.2 EU/dL0.2 - 1.0 EU/dLNOMS HealthcareCLINISYNCNOMS HealthcareXR foot RT min 3V*on 32-04-5422XY foot RT min 3V*[facility] [employer] Other XR foot RT min 3V*[facility] [employer] Other XR foot RT min 3V*[address] [place] [address] [employer] Other XR foot RT min 3V*[place], [place] [address] [place] [address] [employer] Other XR foot RT min 3V*[facility] [employer] Other XR foot RT min 3V*[facility] [employer] Other XR foot RT min 3V*Patient: Melida Lyman MR#: [id number] [employer] Other XR foot RT min 3V*: 1940 Acct:[id number] [employer] Other XR foot RT min 3V*Age/Sex: 83 / F ADM Date: 04/05/23 [facility] [employer] Other XR foot RT min 3V*Loc: XDUCLY Room: Type: [facility] [employer] Other XR foot RT min 3V*Attending Dr: Brenda Majano TEACHER PHYSICALLY IMPAIRED-C [facility] [employer] Other XR foot RT min 3V*Copies to: MYRTLE Larson [facility] [employer] Other XR foot RT min 3V*Ordering Provider: SEGUN LarsonE[facility] [employer] Other XR foot RT min 3V*Date of Service: 04/05/23[place] [employer] Other XR foot RT min 3V* XR/XR foot RT min 3V*: Pain of right heelWalstonburg [employer] Other XR foot RT min 3V*3 views right foot plain filmFairfax Hospital [employer] Other XR foot RT min 3V*COMPARISON:[facility] [employer] Other XR foot RT min 3V*HISTORY: Right foot pain for 2 days [facility] [employer] Other XR foot RT min 3V*ACUTE FINDINGS: [facility] [employer] Other XR foot RT min 3V*DEGENERATIVE CHANGE: Mild degeneration with calcaneal spurring and likely incidental [facility] [employer] Other XR foot RT min 3V*navicularWalstonburg [employer] Other XR foot RT min 3V*SOFT TISSUE FINDINGS: Unremarkable [facility] [employer] Other XR foot RT min 3V*JOINT EFFUSION: [facility] [employer] Other XR foot RT min 3V*POSTOP CHANGES: [facility] [employer] Other XR foot RT min 3V*BONE MINERALIZATION: [facility] [employer] Other XR foot RT min 3V* XR/XR foot RT min 3V*[place] [employer] Other XR foot RT min 3V*IMPRESSION: Degenerative change. No acute findings.[employer] Other XR foot RT min 3V*Impression dictated by: Jose Macias M.D.04/05/2023 2:22 PMNE.[facility] [employer] Other XR foot RT min 3V*Dictation Location: [address] [employer] Other XR foot RT min 3V*Transcribed By: PWS 04/05/[address] [place] [address] [employer] Other XR foot RT min 3V*Dictated By: Jose Macias DO 04/05/[address] [place] [address] [employer] Other XR foot RT min 3V*Signed By:[employer] [facility] [facility] Other XR foot RT min 3V*04/05/[address] [place] [address] [employer] Other MG MAMM SCREEN 3D BROOK CADon 67-43-9750EO MAMM SCREEN 3D BROOK CADPatient: MELIDA LYMAN Exam Date: 06/03/2022 : 1940 Gender:F Ordering : MUSA MICHELLE [facility] Admission #: [id number] Family : Order #: [id number] CLICK HERE TO VIEW EXAM RADIOLOGY REPORT [...] lung cancer at age 58. LOCATION: [facility] BREAST COMPOSITION: Heterogeneously dense,which may obscure [...] by: Dieter Cannon MD on 06/03/2022 at 13:40NormUniversity Hospitals [facility] AUTO DIFFon 57-19-5787DLDC #0.0 103/ulNormal0.0-0.1[facility] HospitalComment on above:Performed By: #### CBC #### [facility] [address] [place] [address] Dr. Kendall RachelBasophils/100 WBC (Bld)1.0 %Normal0.2-2.0[facility] Comment on above:Performed By: #### CBC #### [facility] [address] [place] [address] Dr. Kendall Lott #0.1 103/ulNormal0.0-0.7The [facility] HospitalComment on above: Performed By: #### CBC #### [facility] [address] [place] [address] Dr. Kendall Boyleosinophils/100 WBC (Bld)2.6 %Normal0.9-7.0[facility] Comment on above:Performed By: #### CBC #### [facility] [address] [place] [address] Dr. Kendall Boylerythrocyte distribution width (RBC) [Ratio]12.9 %Cjsvxw04.0-15.0 The [facility] HospitalComment on above:Performed By: #### CBC #### [facility] [address] [place] [address] Dr. Kendall RachelHematocrit (Bld) [Volume fraction]40.3 %Tkcssa28.0-48.0The [facility] HospitalComment on above:Performed By: #### CBC #### [facility] [address] [place] [address] Dr. Kendall RachelHemoglobin (Bld) [Mass/Vol]13.1 g/hSVlzseu39.0-16.0The [facility] HospitalComment on above:Performed By: #### CBC #### [facility] [address] [place] [address] Dr. Kendall Flores #0.01 10e3/ulNormal0.00-0.03The [facility] HospitalComment on above:Performed By: #### CBC #### [facility] [address] [place] [address] Dr. Kendall Flores %0.2 %Normal0.0-0.5The [facility] HospitalComment on above: Performed By: #### CBC #### [facility] [address] [place] [address] Dr. Kendall Schilling #1.0 103/ulCritically low1.2-3.8[facility] Comment on above:Performed By: #### CBC #### [facility] [address] [place] [address] Dr. Kendall Guerrahocytes/100 WBC (Bld)23.9 %Fxoppu80.5-60.0The [facility] HospitalComment on above:Performed By: #### CBC #### [facility] [address] [place] [address] Dr. Kendall RoyalUAL DIFF REQNONormalThe [facility] HospitalComment on above: Performed By: #### CBC #### [facility] [address] [place] [address] Dr. Kendall Dumont (RBC) [Entitic mass]29.8 rsJpdnks07.7-34.0The [facility] HospitalComment on above:Performed By: #### CBC #### [facility] [address] [place] [address] Dr. Kendall Dumont (RBC) [Mass/Vol]32.5 g/jBXoewiq55.9-35.2The [facility] HospitalComment on above:Performed By: #### CBC #### [facility] [address] [place] [address] Dr. Kendall Dumont (RBC) [Entitic vol]91.8 qZDvlbtt20.0-99.0The [facility] HospitalComment on above:Performed By: #### CBC #### [facility] [address] [place] [address] Dr. Kendall Chen #0.4 103/ulNormal0.3-0.8The [facility] HospitalComment on above:Performed By: #### CBC #### [facility] [address] [place] [address] Dr. Kendall Hugginsocytes/100 WBC (Bld)8.6 %Normal1.7-12.0[facility] Comment on above:Performed By: #### CBC #### [facility] [address] [place] [address] Dr. Kendall AgueroUT #2.7 103/ulNormal1.4-6.5The [facility] HospitalComment on above:Performed By: #### CBC #### [facility] [address] [place] [address] Dr. Kendall Agueroutrophils/100 WBC (Bld)63.7 %Ulibef18.0-75.0The [facility] HospitalComment on above:Performed By: #### CBC #### [facility] [address] [place] [address] Dr. Kendall Byrnelet mean volume (Bld) [Entitic vol]10.9 fLNormal9.5-13.5The [facility] HospitalComment on above:Performed By: #### CBC #### [facility] [address] [place] [address] Dr. Kendall RachelPLT300 103/btRjfjce719-975Zqo [facility] HospitalComment on above: Performed By: #### CBC #### [facility] [address] [place] [address] Dr. Kendall RachelRBC4.39 106/ulNormal4.20-5.40The [facility] HospitalComment on above:Performed By: #### CBC #### [facility] [address] [place] [address] Dr. Kendall RachelWBC4.2 103/ulNormal4.0-11.0The [facility] HospitalComment on above: Performed By: #### CBC #### [facility] [address] [address] [address] Kendall RachelPROF 14(COMP METB)on 54-49-0486Pppsfnd [Mass/Vol]3.6 g/dLNormal 3.4-5.0The [facility] HospitalComment on above:Performed By: #### CMP #### [facility] [address] [place] [address] Dr. Kendall RachelAlbumin/Globulin [Mass ratio]1.1 {ratio}NormalThe [facility] HospitalComment on above:Performed By: #### CMP #### [facility] [address] [place] [address] Dr. Kendall GanP [Catalytic activity/Vol]74 U/IDccjbl49-986Vfu [facility] HospitalComment on above:Performed By: #### CMP #### [facility] [address] [place] [address] Dr. Kendall GanT [Catalytic activity/Vol]33 U/BEwzeqy63-29Jvd [facility] HospitalComment on above:Performed By: #### CMP #### [facility] [address] [place] [address] Dr. Kendall Smith gap [Moles/Vol]10.3 mmol/LNormalThe [facility] Comment on above:Performed By: #### CMP #### [facility] [address] [place] [address] Dr. Kendall RachelAST [Catalytic activity/Vol]20 U/UFifrjb39-72Fsz [facility] HospitalComment on above:Performed By: #### CMP #### [facility] [address] [place] [address] Dr. Kendall RachelBilirubin [Mass/Vol]0.4 mg/dLNormal0.2-1.0[facility] Comment on above:Performed By: #### CMP #### [facility] [address] [place] [address] Dr. Kendall RachelCalcium [Mass/Vol]9.3 mg/dLNormal8.5-10.1[facility] Comment on above:Performed By: #### CMP #### [facility] [address] [address] [address] Kendall RachelChloride [Moles/Vol]103 mmol/GTvllwd99-735Ktx [facility] Comment on above:Performed By: #### CMP #### [facility] [address] [place] [address] Dr. Kendall RachelCO2 [Moles/Vol]30.8 mmol/APvmkse81.0-32.0[facility] Comment on above:Performed By: #### CMP #### [facility] [address] [place] [address] Dr. Kendall RachelCreatinine [Mass/Vol]0.87 mg/dLNormal0.55-1.02The [facility] HospitalComment on above:Performed By: #### CMP #### [facility] [address] [place] [address] Dr. Argueta ChangEGFR-AF BHUTANESE>60Normal>=60The [facility] HospitalComment on above:Performed By: #### CMP #### [facility] [address] [place] [address] Dr. Kendall BoyleGFR-NON AF BHUTANESE>60Normal>=60The [facility] HospitalComment on above:Performed By: #### CMP #### [facility] [address] [place] [address] Dr. Kendall RachelGlobulin (S) [Mass/Vol]3.4 g/dLNormalThe [facility] HospitalComment on above:Performed By: #### CMP #### [facility] [facility] [address] [place] [address] Dr. Kendall RachelGlucose [Mass/Vol]100 mg/tTMycsjd21-649Upq [facility] Comment on above:Performed By: #### CMP #### [facility] [address] [place] [address] Dr. Kendall RachelPotassium [Moles/Vol]4.1 mmol/LNormal3.5-5.1[facility] Comment on above:Performed By: #### CMP #### [facility] [address] [place] [address] Dr. Kendall RachelProtein [Mass/Vol]7.0 g/dLNormal6.4-8.2[facility] Comment on above:Performed By: #### CMP #### [facility] [address] [place] [address] Dr. Kendall Hernandezum [Moles/Vol]140 mmol/EGgcyfq033-015Njq [facility] Comment on above:Performed By: #### CMP #### [facility] [address] [address] [address] Kendall Ibrahim nitrogen [Mass/Vol]23.0 mg/dLCritically high7.0-18.0The [facility] HospitalComment on above:Performed By: #### CMP #### [facility] [address] [place] [address] Dr. Kendall Ibrahim nitrogen/Creatinine [Mass ratio]26.4 mg/mgNoalThMercy HealthComment on above:Performed By: #### CMP #### [facility] [address] [place] [address] Dr. Kendall Shin RANDOM W/MICROSCOPICon 47-52-8998EEWQEMJVSPRT SEENNormalNONE SEENCleveland Clinic Medina HospitalComment on above:Performed By: #### UAMIC #### [facility] [address] [place] [address] Dr. Kendall Caceres Ql (U)NegativeNormalNEGATIVECleveland Clinic [facility] Hospital Comment on above:Performed By: #### UAMIC #### [facility] [address] [place] [address] Dr. Kendall RachelCASTISIDOROE SEENNormalNONE SEENCleveland Clinic Medina HospitalComment on above:Performed By: #### UAMIC #### [facility] [address] [place] [address] Dr. Kendall Goetz (U)CLEARNormalCLEARCleveland Clinic Medina HospitalComment on above: Performed By: #### UAMIC #### [facility] [address] [place] [address] Dr. Kendall Kelly (U)YELLOWNormalYELLOWCleveland Clinic Medina HospitalComment on above: Performed By: #### UAMIC #### [facility] [address] [address] [address] Kendall RachelCrystals LM Nom (Urine sed)NONE SEENNormalNONE SEENCleveland Clinic Medina HospitalComment on above:Performed By: #### UAMIC #### [facility] [address] [address] [address] Argueta ChangEpithelial cells LM Ql (Urine sed)RARENormalNONE SEEN /RARECleveland Clinic Medina HospitalComment on above:Performed By: #### UAMIC #### [facility] [address] [address] [address] Kendall RachelGlucose Ql (U)NegativeNormalNEGATIVECleveland Clinic Medina HospitalComment on above:Performed By: #### UAMIC #### [facility] [address] [place] [address] Dr. Kendall RachelHemoglobin Ql (U)NegativeNormalNEGATIVEFairfield Medical Center on above:Performed By: #### UAMIC #### [facility] [address] [place] [address] Dr. Kendall RachelKetones Ql (U)NegativeNormalNEGATIVEFairfield Medical Centerment on above:Performed By: #### UAMIC #### [facility] [address] [place] [address] Dr. Kendall RachelLEUKOCYTESTRACEAbnormalNEGATIVECleveland Clinic Medina HospitalComup health system on above:Performed By: #### UAMIC #### [facility] [address] [address] [address] Kendall MongeCOUSTRACEAbnormalNONE SEENCleveland Clinic Medina HospitalComment on above:Performed By: #### UAMIC #### [facility] [address] [address] [address] Kendall RachelNitrite Ql (U)NegativeNormalNEGATIVECleveland Clinic Medina HospitalComment on above:Performed By: #### UAMIC #### [facility] [address] [address] [address] Kendall RachelpH (U)7.0 [pH]Normal5-9The [facility] HospitalComment on above: Performed By: #### UAMIC #### [facility] [address] [address] [address] Kendall RachelHwxxdBYP4-0Asxdeq8-4Abn [facility] HospitalComment on above:Performed By: #### UAMIC #### [facility] [address] [place] [address] Dr. Kendall RachelSPEC GRAVITY1.661Anhzjo8.005-<=1.025The [facility] HospitalComment on above:Performed By: #### UAMIC #### [facility] [address] [address] [address] Kendall RachelUA PROTEINNegativeNormalNEGATIVE/ TRACEThe [facility] Comment on above:Performed By: #### UAMIC #### [facility] [address] [place] [address] Dr. Kendall RachelUrobilinogen Qn (U)0.2 {Sagrario'U}/dLNormal0.2 - 1.0The [facility] HospitalComment on above:Performed By: #### UAMIC #### [facility] [address] [place] [address] Dr. Kendall RachelWBC0-2AbnormalNONE SEENThe [facility] HospitalComup health system on above: Performed By: #### UAMIC #### [facility] [address] [place] [address] Dr. Kendall Rachel Vital Signs Date TimeVital SignValuePerforming LbgtotwbbFyfafovu78-24-3613 10:03-0400 Diastolic blood sozevurh05 mm[Hg]Rosemary Michelle TEACHER PHYSICALLY IMPAIRED Work Phone: [facility] CenterHeidaqpccm00-13-4229 10:03-0400Systolic blood oaraijfw385 mm[Hg]Rosemary Michelle TEACHER PHYSICALLY IMPAIRED Work Phone: [facility] CenterJkilcupdpg51-88-0406 09:31-0400Body mass index (BMI) [Ratio]25.14 kg/m2Rosemary Michelle TEACHER PHYSICALLY IMPAIRED Work Phone: noMid [facility] CenterLovcjsuvlq85-21-0004 09:31-0400Body temperature 98.1 [degF]Rosemary Gutierrezz TEACHER PHYSICALLY IMPAIRED Work Phone: [facility] CenterGqbywvvibw60-17-8642 09:31-0400Body eqgvck88.62 kgLisa Luluholz TEACHER PHYSICALLY IMPAIRED Work Phone: [facility] CenterYnfwcpobtm99-26-7653 09:31-0400Heart rate61 /min Rosemary Luluholz TEACHER PHYSICALLY IMPAIRED Work Phone: [facility] CenterEgvxytujhz28-55-0727 09:31-0400Respiratory rate18 /minLisa Aichholz TEACHER PHYSICALLY IMPAIRED Work Phone: [facility] CenterWhtnpvoejq73-10-1321 09:31-6884DrD8% (BldA) [Mass fraction]97 %Rosemary Luluholz TEACHER PHYSICALLY IMPAIRED Work Phone: [facility] CenterNjldasxasa37-24-5245 11:34-0400Body mass index (BMI) [Ratio]24.5 kg/m2Lisa Luluholz TEACHER PHYSICALLY IMPAIRED Work Phone: [facility] CenterNsqelbnqcc70-00-5916 11:34-0400Body temperature 98.29 [degF]Rosemary Luluholz TEACHER PHYSICALLY IMPAIRED Work Phone: [facility] CenterIpiuqlyesi00-41-4104 11:34-0400Body .25 kgLisa Luluholz TEACHER PHYSICALLY IMPAIRED Work Phone: [facility] CenterYjbqtzzabg35-44-8231 11:34-0400Diastolic blood iomcjbeg17 mm[Hg]Rosemary Luluholz TEACHER PHYSICALLY IMPAIRED Work Phone: [facility] CenterLxsvqqeyqk54-56-8939 11:34-0400Heart rate67 /min Rosemary Luluholz TEACHER PHYSICALLY IMPAIRED Work Phone: [facility] CenterDhzfiloubf37-79-5887 11:34-0400Respiratory rate20 /minLisa Josehholz TEACHER PHYSICALLY IMPAIRED Work Phone: [facility] CenterQsshiavbkl66-47-8806 11:34-9254ByW6% (BldA) [Mass fraction]98 %Rosemary Josehholz TEACHER PHYSICALLY IMPAIRED Work Phone: [phone] [place], [place] [address]Jkcwemsoqw79-65-5089 11:34-0400Systolic blood xyospnpl933 mm[Hg]Rosemary Michelle TEACHER PHYSICALLY IMPAIRED Work Phone: [facility] CenterVfcbtfsasn39-10-8892 11:54-0400Diastolic blood kjvcnazm04 mm[Hg][facility]05-01-2025 11:54-0400Systolic blood mm[Hg][facility]05-01-2025 11:05-0400 Body pegkuh662.32 cmSt. [facility]'S Hospital05-01-2025 11:05-0400Body mass index (BMI) [Ratio]24.4 kg/i3JadwuoikjSt. Anthony'S Hospital05-01-2025 11:05-0400Body nolpsoqslrs66.6 [degF][facility]05-01-2025 11:05-0400Body .07 kgSt. [facility]'S Hospital05-01-2025 11:05-0400Heart rate72 /[facility] 11:05-0400Respiratory rate18 /[facility]05-01-2025 11:05-1219XtA1% (BldA) [Mass fraction]97 %[facility] 07-23-2024 10:14-0400Body nisuqk964.1 Sofiamarichuy Miguel Angel TEACHER PHYSICALLY IMPAIRED Work Phone: [facility] CenterZrhtynovlu13-90-7933 10:14-0400Body mass index (BMI) [Ratio]24.37 kg/m2Adenike Miguel Angel TEACHER PHYSICALLY IMPAIRED Work Phone: [facility] CenterUsgnjmaxqr78-57-0635 10:14-0400Body temperature 97.11 [degF]Rosemary Michelle TEACHER PHYSICALLY IMPAIRED Work Phone: [facility] CenterDjfysemgvh28-02-7731 10:14-0400Body aoaixr23.98 kgAdenikesa Miguel Angel TEACHER PHYSICALLY IMPAIRED Work Phone: [facility] CenterSnoootpind86-72-9403 10:14-0400Diastolic blood ijaakxbs19 mm[Hg]Rosemary Michelle TEACHER PHYSICALLY IMPAIRED Work Phone: [facility] CenterHpihgshmkn48-25-0404 10:14-0400Heart rate76 /min Rosemary Michelle TEACHER PHYSICALLY IMPAIRED Work Phone: [facility] CenterLqonopunzi15-31-9503 10:14-0400Respiratory rate18 /minRosemary Michelle TEACHER PHYSICALLY IMPAIRED Work Phone: [facility] CenterKvepeiqqqq28-87-6531 10:14-9731DeY9% (BldA) [Mass fraction]97 %Rosemary Michelle TEACHER PHYSICALLY IMPAIRED Work Phone: [facility] CenterXtdgbhdbdf93-74-0829 10:14-0400Systolic blood lvqgabqu592 mm[Hg]Rosemary Michelle TEACHER PHYSICALLY IMPAIRED Work Phone: [facility] CenterBppiudltub93-73-4596 13:35-0400Body fpprpo244.78 cmPamelleonel Majano Other [employer] Other 07-05-2023 13:35-0400Body mass index (BMI) [Ratio] 24.67 kg/x4XudojhBrenda Majano Other [employer] Other 07-05-2023 13:35-0400Body ozdjzybygar27.6 [degF]Brenda Kulkarnimond Other [employer] Other 07-05-2023 13:35-0400Body qezvqk77.71 kgLolaleonel KulkarniGretel Other [employer] Other 07-05-2023 13:35-0400Diastolic blood gbpiuuvw03 mm[Hg] Brenda Gretel Other [employer] Other 07-05-2023 13:35-0400Respiratory rate18 /minBrenda Majano Other [employer] Other 07-05-2023 13:35-3408HkM8% (BldA) [Mass fraction]98 % [facility] [employer] Other 07-05-2023 13:35-0400Systolic blood hqdkoxuj783 mm[Hg] Brenda Majano Other [facility] [employer] Other Encounters Encounter DateEncounter TypeCare ProviderFacilityStart: 04-23-2025 End: 49-36-5314Edunqw flowsheetLisa Aichholz TEACHER PHYSICALLY IMPAIRED Work Phone: NOCX CWM FMStart: 04-23-2025 End: 87-62-5666Ucxkuw flowsheetLisa Aichholz TEACHER PHYSICALLY IMPAIRED Work Phone: NODT CWM FMStart: 04-23-2025 End: 61-03-2778Yojadm outpatient visit 15 minutesLisa Josehholz TEACHER PHYSICALLY IMPAIRED Work Phone: NORD CWM FMComment on above:Primary hypertension (Primary Dx); Anxiety; Chronic rhinitisStart: 04-23-2025 End: 40-05-7873zucppzmmzjUSLO AICHHOLZNot AvailableStart: 03-13-2025 End: 46-23-3745Pelawp flowsheetRylee Northeim PA Work Phone: [facility] DERMStart: 03-13-2025 End: 96-03-4389Uegpgs flowsheetRylee Northm PA Work Phone: [facility] DERMStart: 03-13-2025 End: 06-97-5770Irssne outpatient new 30 minutesRylee Northeim PA Work Phone: noMS SWS DERMComment on above:Lichen simplex chronicus (Primary Dx); Neoplasm of unspecified behavior of bone, soft tissue, and skinStart: 03-13-2025 End: 23-10-1006jwnuhdlontTKNCP NORTHEIMNot AvailableStart: 03-06-2025 End: 24-18-8078Rswdlw flowsheetLisa Aichholz TEACHER PHYSICALLY IMPAIRED Work Phone: noms CWM FMStart: 03-06-2025 End: 89-32-3091Ygyrih flowsheetLisa Aichholz TEACHER PHYSICALLY IMPAIRED Work Phone: noms CWM FMStart: 03-06-2025 End: 92-32-4859Ybafwd outpatient visit 25 minutesLisa Mattz TEACHER PHYSICALLY IMPAIRED Work Phone: noms CWM FMComment on above:Hypertension, unspecified type (CMS/HCC) (Primary Dx); Anxiety; Neoplasm of uncertain behaviorStart: 03-06-2025 End: 80-96-5050ahtuuhmvovBJIV JOSEHHOLZNot AvailableStart: 02-20-2025 End: 21-18-7839efbovmqlkfJWYD JOSEHHOLZNot AvailableStart: 01-30-2025 End: 44-94-5943fpuueiownhBwbi J Miguel Angel Work Phone: [facility] Work Phone: Start: 01-30-2025 End: 73-16-6386Savrkwwh ReferredLisa Mattz Work Phone: [facility] [place] Work Phone: Start: 01-30-2025 End: 24-79-6875lxvtzvapucGghrwhvwiSelect [facility] Work Phone: Start: 01-30-2025 End: 05-19-4062Njyomjg encounter procedurePsychiatric Hospital Phys[facility] [place] Work Phone: Start: 07-26-2024 End: 64-89-6270Exwudlafg Result EncounterLisa Luluholz TEACHER PHYSICALLY IMPAIRED Work Phone: noms External Department UnsolicitedStart: 07-26-2024 End: 73-31-7593Isjbyzuwp Result EncounterLisa Aichholz TEACHER PHYSICALLY IMPAIRED Work Phone: noms External Department UnsolicitedStart: 07-23-2024 End: 61-84-4391Lyvbtd flowsheetRosemary Michelle TEACHER PHYSICALLY IMPAIRED Work Phone: noms CWM FMStart: 07-23-2024 End: 78-98-6430Jpueib flowsheetLisa Miguel Angel TEACHER PHYSICALLY IMPAIRED Work Phone: noms CWM FMStart: 07-23-2024 End: 05-45-0405Fniuelf encounter procedureLisa Michelle TEACHER PHYSICALLY IMPAIRED Work Phone: noms CWM FMComment on above:Encounter for subsequent annual wellness visit (AWV) in Medicare patient (Primary Dx); Gastroesophageal reflux disease without esophagitis; Age-related osteoporosis without current pathological fracture (CMS/HCC); Mixed urge and stress incontinence; Needs flu shot; Subacute frontal sinusitisStart: 07-23-2024 End: 94-94-6040zuxxbwqjexRZRT AICHHOLZNot AvailableStart: 04-05-2023 End: 87-30-4423Qkwumbk encounter procedureNP-C Brenda Majano Work Phone: [facility] [place] Work Phone: Start: 04-05-2023 End: 56-25-7453egzgsqexdfDH-C Brenda Majano Work Phone: [facility] Work Phone: Start: 18-42-9570Bnvzsp outpatient new 20 minutes Brenda MajanoFPG Urgent Care ClydeStart: 06-03-2022 End: 33-90-3550tkrbinuuqpSKB ROSEMARY AICHHOLZFacility:J2Dklit: 05-31-2022 End: 48-73-7971dkmmavsqfmCJG ROSEMARY JOSEHHOLZFacility:H1 Procedures DateProcedureProcedure DetailPerforming ClinicianStart: 44-96-9709POVO / NAIL BIOPSYRylee Bren FARNSWORTH Work Phone: Start: 76-61-4221WGW UA (CLEAN/CATCH) MICROSCOPIC IF INDICATERosemary Michelle TEACHER PHYSICALLY IMPAIRED Work Phone: start: 52-07-1242Z-ray of right footNP-C Brenda Majano Work Phone: Plan of Treatment DateCare ActivityDetailAuthorStart: 10-22-2025Medicare Annual Wellness (AWV) Medicare Annual Wellness (AWV)[facility] HealthcareStart: 07-15-2025 End: 96-16-3073Lehsxsa encounter /14/2025 10:00 AM EDT Office Visit [facility] [address] [place] [phone] Rosemary Michelle, JUAN PABLO [address] [place] [phone] [facility] FMStart: 51-17-2240Njfgzvnhl vaccinationInfluenza Vaccine (#1)[facility] HealthcareStart: 04-23-2025 End: 40-25-8349Iobrhun encounter procedureNOMS CWM FMComment on above:Primary hypertension (Primary Dx); AnxietyStart: 03-13-2025 End: 32-78-9950Cuzdsxs encounter tjdfwlajk71/12/2025 10:30 AM EDT Office Visit [facility] [address] [place] [address] Rufino Correia PA [address] [place] [address] Neoplasm of uncertain behaviorNOMS SWS DERMComment on above:Neoplasm of uncertain behaviorStart: 03-06-2025 End: 54-37-2859Byzfkbr encounter orvrhdqlb44/05/2025 11:30 AM EDT Office Visit [facility] [address] [place] [phone] Rosemary Michelle, TEACHER PHYSICALLY IMPAIRED [address] [place] [address] Hypertension, unspecified type (CMS/HCC) (Primary Dx)[facility] FMComment on above:Hypertension, unspecified type (CMS/HCC) (Primary Dx)Start: 56-77-7152Elxzv cultureKnox Community Hospitaltart: 01-30-2025 Bacteria identified in Urine by CultureUrine [facility] Hospitaltart: 07-23-2024 End: 435420-ypmyhxkhmjmsri D3 [Mass/volume] in Serum or PlasmaVitamin D 25 hydroxy Lab Routine Age-related osteoporosis without current pathological fracture (CMS/HCC) Expected: 07/23/2024 (Approximate), Expires: 07/23/2025[facility] HealthcareComment on above:Expected: 07/23/2024 (Approximate), Expires: 07/23/2025Start: 07-23-2024 End: 39-27-0811RYI W Auto Differential panel - BloodCBC and differential Lab Routine Gastroesophageal reflux disease without esophagitis Expected: 07/23/2024 (Approximate), Expires: 07/23/2025[facility] Healthcare Work Phone: Comment on above:Expected: 07/23/2024 (Approximate), Expires: 07/23/2025Start: 07-23-2024 End: 91-70-0222Lyozzdbspikjf metabolic 2000 panel - Serum or PlasmaComprehensive metabolic panel Lab Routine Gastroesophageal reflux disease without esophagitis Age-related osteoporosis without current pathological fracture (CMS/HCC) Expected: 07/23/2024 (Approximate), Expires: 07/23/2025[facility] HealthcareComment on above:Expected: 07/23/2024 (Approximate), Expires: 07/23/2025Start: 07-23-2024 End: 91-61-7206Ogmyfxrwdx complete panel - UrineUrinalysis with reflex microscopic (clean catch) Lab Routine Mixed urge and stress incontinence Expe cted: 07/23/2024 (Approximate), Expires: 07/23/2025[facility] HealthcareComment on above:Expected: 07/23/2024 (Approximate), Expires: 07/23/2025Start: 07-23-2024 End: 85-84-8136Ukqnxrn encounter dqljurtcn82/22/2024 10:00 AM EDT Office Visit [facility] [address] [place] [phone] Rosemary Michelle NP [address] [place] [phone] Gastroesophageal reflux disease without esophagitis (Primary Dx); Age-related osteoporosis without current pathological fracture (CMS/HCC); Mixed urge and stress incontinenceNOLAKESIDE WOMEN'S [facility] [place] [facility] FMComment on above:Gastroesophageal reflux disease without esophagitis (Primary Dx); Age-related osteoporosis without current pathological fracture (CMS/HCC); Mixed urge and stress incontinenceStart: 10-02-2024Medicare Annual Wellness (AWV)Medicare Annual Wellness (AWV)[facility] HealthcareStart: 87-52-5751Uloezjnis vaccinationInfluenza Vaccine (#1)[facility] HealthcareDermatopathology exam Dermatopathology exam Pathology and Cytology Timed Neoplasm of unspecified behavior of bone, soft tissue, and skin Release Upon Ordering for 1 Occurrences starting 03/13/2025[facility] Work Phone: comment on above:Release Upon Ordering for 1 Occurrences starting 03/13/2025 Immunizations Immunization DateImmunizationNotesCare OzdbmmnqNvewnnrn85-64-6685Tthgyqrq trivalent influenza vaccine, adjuvanted, preservative freeLisa Aichholz TEACHER PHYSICALLY IMPAIRED Work Phone: noMid [facility] CenterFilxdavdgy27-28-2908eqwquxyzm virus vaccine, unspecified formulationLisa Aichholz TEACHER PHYSICALLY IMPAIRED Work Phone: [facility] CenterNrxvacokus23-28-8100Sawfiyhmf, Seasonal, Quadrivalent, AdjuvantedLisa Aichholz TEACHER PHYSICALLY IMPAIRED Work Phone: noMid [facility] CenterSfdzcyybqf11-64-7275carqrjris virus vaccine, unspecified formulationLisa Aichholz TEACHER PHYSICALLY IMPAIRED Work Phone: noMid [facility] CenterWkcvutglla12-14-6273Odazqjazx, High-dose Seasonal, Quadrivalent, Preservative FreeLisa Aichholz TEACHER PHYSICALLY IMPAIRED Work Phone: noMid [facility] CenterMzsphqpfse19-51-0071Azvjvlcox, Seasonal, Quadrivalent, AdjuvantedLisa Aichholz TEACHER PHYSICALLY IMPAIRED Work Phone: [facility] CenterZqllqpnfyz62-28-1652Exarkgtzt, High-dose Seasonal, Quadrivalent, Preservative FreeLisa Aichholz TEACHER PHYSICALLY IMPAIRED Work Phone: noMid [facility] CenterUahjrifozw06-64-5866Aaqrqgrln, Seasonal, Quadrivalent, AdjuvantedLisa Aichholz TEACHER PHYSICALLY IMPAIRED Work Phone: [facility] CenterWsiuwgaqok19-74-7023evcbest toxoid, reduced diphtheria toxoid, and acellular pertussis vaccine, adsorbedPamela Gretel Other [place] [employer] Other [phone] and diphtheria toxoids, adsorbed, preservative free, for adult use (5 Lf of tetanus toxoid and 2 Lf of diphtheria toxoid)[facility]12-10-2014influenza, seasonal, injectableLisa Aichholz TEACHER PHYSICALLY IMPAIRED Work Phone: [facility] CenterHfucsxywlm21-20-9050cydivaklf virus vaccine, whole virusLisa Aichholz TEACHER PHYSICALLY IMPAIRED Work Phone: [facility] Payers DatePayer CategoryPayerPolicy [id number]-pay2022Medicare (Managed Care)[employer] Member Subscriber Plan / Payer (Effective 2021-Present) Name: Melida Lyman Relation to Subscriber: Self Name: Melida Lyman Payer ID: Not on file Group ID: [id number] Type: Not on file Address: [facility] [id number] [place] [id number] [id number] 2.16.840.1.920414.3.579.2. [id number] 2..840.1.663239.3.57[id number] 2.16.840.1.306742.3.57[id number] 2..840.1.503374.3.57[id number] 2.16.840.1.268790.3.57[id number] 2..0.1.439885.3.57[id number] 2..840.1.988881.3.579.2.1259MedicareAnthem [facility] [id number] 2.0.1.504681.3.579.2.531 Social History DateTypeDetailFacilityTobacco smoking status NHISUnknown if ever smokedBrecksville Va [facility] Work Phone: Start: 45-28-8463Iwu [facility]igned [facility]: 01-17-2024 End: 83-72-7129Aay Assigned At [facility] [employer] Other Start: 12-05-2023 End: 99-03-6129Apjtvhm smoking status NHISNever smoked tobaccoNOMS Healthcare Start: 09-93-9098Vaoyxfo use and exposureSmokeless tobacco non-userNOMS HealthcareStart: 01-17-2024 End: 77-78-9543Adulunssb beverage intakeLifetime non-drinker (finding)[facility] HealthcareStart: 01-17-2024 End: 93-06-0766Doprljr of Social functionNOMS HealthcareStart: 68-38-7819Mqkyosq Commentcaffine: eleazar 2 daily and sodaNOTX HealthcareStart: 66-92-9938Rup assigned at birthNot on vikkiJORDAN VALLEY [facility]ENTER HealthcareStart: 01-30-2025 End: 99-56-1994PdwXabfhy (finding)[facility] Clinical Notes 04-05-2023 to 04-23-2025 Note Date & RpavLqrzIlguhbva84-76-7515 History of Present illness Narrative* Rosemary Michelle NP - 04/23/2025 10:10 AM EDTAssociated Problem(s): Chronic rhinitis Cont allergy meds and nasal spray Sinuses not a new finding * JARAD PITT - 04/23/2025 9:20 AM EDT Buspar 5mg- she takes it once daily/PRN makes her sleepy she does feel better more relax she did not have any GI issues. With the tiredness she feels that she had gain 3lbs with not moving much. Spot on left side of head- benign still bothers her * Rosemary Michelle NP - 04/23/2025 9:20 AM EDT Melida Lyman is a 85 y.o. female presents with chief complaint of Hypertension HPI: Here for a recheck: Anxiety: last appt ordered buspirone as needed for anixety: takes in am, does make somewhat tired as day goes on. She is less stressed out, more tolerant of Home reads: 130/80's Is still walking, no chest pain or pressure. Sinuses: still has sinus tightness/pressure around the eyes, takes allergy med. +runny nose, clear mostly clear. Very infrequent dizziness or lightheaded +itchy eyes at times, occ sneezing. Nasal steroid not a lot of help pressure. Not freq [place] SUBJECTIVE: MEDICATIONS: Current Outpatient Medications Medication Instructions busPIRone (BUSPAR) 5 mg, Oral, Every 12 hours PRN calcium carbonate (Super Calcium) 1500 (600 Ca) MG tablet Every 12 hours clobetasol (Temovate) 0.05 % cream 1 Application, Every 12 hours clobetasol (Temovate) 0.05 % cream Apply to affected areas, up to twice a day when flared, do not use one the face, groin, or underarms, 30 day supply fluticasone (Flonase) 50 MCG/ACT nasal spray 2 sprays, Daily ibuprofen 200 MG tablet Every 12 hours lansoprazole (Prevacid) [address] capsule Every 24 hours loratadine (Claritin) 10 MG tablet Every 24 hours Multiple Vitamins-Minerals (PreserVision AREDS 2) capsule ALLERGIES: Allergies Allergen Reactions Amoxicillin Hives Sulfamethoxazole-Trimethoprim Hives REVIEW OF SYMPTOMS: Review of Systems Constitutional: Negative for appetite change, chills and fever. HENT: Positive for sinus pressure. Negative for congestion, ear pain and sore throat. Eyes: Negative [...] Skin: Negative for rash and wound. Neurological: Negative for dizziness, tremors, seizures, syncope and headaches. Psychiatric/Behavioral: Negative for behavioral problems, self-injury and suicidal ideas. The patient is nervous/anxious. Hematological: Does not bruise/bleed easily. Endocrine: Negative for polydipsia, polyphagia and polyuria. Allergic/Immunologic: Negative for environmental allergies and food allergies. PAST MEDICAL HISTORY No past medical history on file. Past Surgical History: Procedure Laterality Date CATARACT EXTRACTION, BILATERAL family history is not on file. OBJECTIVE: Visit Vitals BP 140/70 (BP Location: Left arm, Patient Position: Sitting, BP Cuff Size: Adult) Pulse 61 Temp 98.1 F (Temporal) Resp 18 Wt 118 lb 3.2 oz SpO2 97% BMI 25.14 kg/m Smoking Status Never BSA 1.47 m Physical Exam Vitals and nursing note reviewed. Constitutional: General: She is not in acute distress. Appearance: Normal appearance. HENT: Head: Normocephalic and atraumatic. Right Ear: Tympanic membrane, ear canal and external ear normal. Left Ear: Tympanic membrane, ear canal and external ear normal. Nose: Nose normal. No congestion or rhinorrhea. Comments: Pallor Mouth/Throat: Mouth: Mucous membranes are moist. Pharynx: No oropharyngeal exudate or posterior oropharyngeal erythema. Eyes: Extraocular Movements: Extraocular movements intact. Conjunctiva/sclera: Conjunctivae normal. Neck: Vascular: No carotid bruit. Cardiovascular: Rate and Rhythm: Normal rate and regular rhythm. Pulses: Normal pulses. Heart sounds: Murmur heard. Pulmonary: Effort: Pulmonary effort is normal. Breath sounds: Normal breath sounds. No wheezing or rhonchi. Abdominal: General: Bowel sounds are normal. There [...] file. Problem List Items Addressed This Visit Chronic rhinitis Cont allergy meds and nasal spray Sinuses not a new finding Hypertension - Primary Will continue to monitor no meds at this time Ok with range 130 low 140's DBP are good If >150/90 let office know Anxiety Current meds: buspar Daily prn if she wants * Rosemary Michelle NP - 04/23/2025 7:03 AM EDTAssociated Problem(s): Anxiety Current meds: buspar Daily prn if she wants * Rosemary Michelle NP - 04/23/2025 7:02 AM EDTAssociated Problem(s): Hypertension Will continue to monitor no meds at this time Ok with range 130 low 140's DBP are good If >150/90 let office know documented in this [facility]07-23-2025 Instructions* Patient Instructions* Rosemary Michelle NP - 04/23/2025 9:20 AM EDT Check BP a few times a week, if >150/90 consistently call office documented in this encounterUniversity Health Lakewood Medical [id number] History of Present illness Narrative* JAVAD Beckham - 03/13/2025 10:30 AM EDT Images from the original note were not included. Lesions: Location: left temporal scalp Duration: 6 weeks Quality: denies pain, denies itch, denies bleeding Associated symptoms: red, rough, aggravated by glasses Treatments: mupirocin 2% ointment BID from PCP New patient, referred by Rosemary Michelle APRN-UMSA All pertinent medical history, medications, and allergies were reviewed. General Exam: alert, oriented to person, place, and time, normal affect, well appearing Unaccompanied A focused exam completed based on patient reported problems, see below: Skin Exam 1. 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 It was explained that it is often caused by repeated rubbing or scratching of an area due to itching. Treatments to help with the itching were discussed which include steroid creams, intralesional kenalog injections, and occlusive dressings to prevent scratching. The patient was also encouraged refrain from scratching. Continue Clobetasol 0.05% cream BID PRN clobetasol (Temovate) 0.05 % cream - Left Suprapubic Area Apply to affected areas, up to twice a day when flared, do not use one the face, groin, or underarms, 30 day supply 2. NEOPLASM OF UNCERTAIN BEHAVIOR Related Procedures Ambulatory referral to Dermatology 3. NEOPLASM OF UNSPECIFIED BEHAVIOR OF BONE, SOFT TISSUE, AND SKIN Left Temporal Scalp Worley papule Lesion biopsy Type of biopsy: tangential Informed consent: discussed and consent obtained Informed consent comment: The risks and benefits of the biopsy were discussed. Risks include but are not limited to bleeding, infection, scarring, pain, and nerve damage. An opportunity to ask questions prior to the procedure was permitted and all questions were answered. Patient was prepped and draped in usual sterile fashion: area cleansed with alcohol. Anesthesia: the lesion was anesthetized in a standard fashion Anesthetic: 1% lidocaine w/ epinephrine 1-100,000 buffered w/ 8.4% NaHCO3 Instrument used: DermaBlade Hemostasis achieved with: electrodesiccation Outcome: patient tolerated procedure well Outcome comment: The specimen was placed in a prelabeled formalin container to be sent for pathology Post-procedure details: sterile dressing applied and wound care instructions given Post-procedure details comment: Emphasized need to contact clinic for any signs of infection, uncontrollable bleeding, or complications. Dressing type: bandage Additional details: Photo taken yes Amount of lidocaine used: 1.0 cc Specimen A - Dermatopathology exam Differential Diagnosis: pustule vs. SCC vs. BCC vs. AK Check Margins: No Size of lesion: 0.5 x 0.4 cm Next Visit: pending biopsy results documented in this encounterUniversity Health Lakewood Medical [id number] History of Present illness Narrative* Rosemary Michelle NP - 03/06/2025 1:05 PM EDTAssociated Problem(s): Neoplasm of uncertain behavior Refer to derm * Rosemary Michelle NP - 03/06/2025 1:05 PM EDTAssociated Problem(s): Anxiety Add alissapar Advised how to take, and side effects Fu in 6 weeks * JARAD PITT - 03/06/2025 11:30 AM EDT 150/70 at the start of rooming Pt did bring her BP cuff device She used left arm Adult long cuff 160/79 71 HR * Rosemary Michelle NP - 03/06/2025 11:30 AM EDT Images from the original note were not included. Melida Lyman is a 85 y.o. female presents with chief complaint of Hypertension HPI: Here for recheck bp Brings log of BP, morning reads good less than 140/90, evening reads more >150/90 No chest pain/pressures Many stressors about her , she does feel that some of her sxs could be anxiety driven Her morning reads he is sleeping Is open to trying something for anxiety Also look at wound left ear: putting ointment on it not better SUBJECTIVE: MEDICATIONS: Current Outpatient Medications Medication Instructions calcium carbonate (Super Calcium) 1500 (600 Ca) MG tablet Every 12 hours clobetasol (Temovate) 0.05 % cream 1 Application, Every 12 hours ibuprofen 200 MG tablet Every 12 hours lansoprazole (Prevacid) [address] capsule Every 24 hours loratadine (Claritin) 10 MG tablet Every 24 hours Multiple Vitamins-Minerals (PreserVision AREDS 2) capsule as directed Orally ALLERGIES: Allergies Allergen Reactions Amoxicillin Hives Sulfamethoxazole-Trimethoprim Hives REVIEW OF SYMPTOMS: Review of Systems Constitutional: Negative for appetite change, fatigue, fever and unexpected weight change. HENT: Negative for congestion, ear pain, sinus pressure, sinus pain and sore throat. Eyes: Negative for pain, discharge and visual disturbance. Breasts: Negative for breast mass and breast discharge. Respiratory: Negative for apnea, cough, chest tightness, shortness of breath and wheezing. Cardiovascular: Negative for chest pain, palpitations and leg swelling. Gastrointestinal: Negative for abdominal pain, constipation, diarrhea, nausea and vomiting. Genitourinary: Negative for decreased urine volume, difficulty urinating and dysuria. Musculoskeletal: Negative for arthralgias, back pain, gait problem and joint swelling. Skin: Positive for wound. Negative for color change and rash. Neurological: Negative for dizziness, tremors, weakness and headaches. Psychiatric/Behavioral: Negative for agitation, hallucinations and suicidal ideas. The patient is nervous/anxious. Hematological: Negative for adenopathy. Does not bruise/bleed easily. Endocrine: Negative for cold intolerance, heat intolerance, polydipsia and polyuria. Allergic/Immunologic: Negative for environmental allergies and food allergies. PAST MEDICAL HISTORY History reviewed. No pertinent past medical history. Past Surgical History: Procedure Laterality Date CATARACT EXTRACTION, BILATERAL family history is not on file. OBJECTIVE: Visit Vitals BP 150/68 (BP Location: Left arm, Patient Position: Sitting, BP Cuff Size: Adult long) Pulse 67 Temp 98.3 F (Temporal) Resp 20 Wt 115 lb 3.2 oz SpO2 98% BMI 24.50 kg/m Smoking Status Never BSA 1.46 m Physical Exam Vitals and nursing note reviewed. Constitutional: General: She is not in acute distress. Appearance: Normal appearance. HENT: Head: Normocephalic and atraumatic. Right Ear: Tympanic membrane, ear canal and external ear normal. Left Ear: Tympanic membrane, ear canal and external ear normal. Nose: Rhinorrhea present. No congestion. Mouth/Throat: Mouth: Mucous membranes are moist. Pharynx: No oropharyngeal exudate or posterior oropharyngeal erythema. Eyes: Extraocular Movements: Extraocular movements intact. Conjunctiva/sclera: Conjunctivae normal. Neck: Vascular: No carotid bruit. Cardiovascular: Rate and Rhythm: Normal rate and regular rhythm. Pulses: Normal pulses. Heart sounds: Murmur heard. Pulmonary: Effort: Pulmonary effort is normal. Breath sounds: Normal breath sounds. No wheezing or rhonchi. Musculoskeletal: General: Normal range of motion. Cervical back: Normal range of motion and neck supple. Skin: General: Skin is warm and dry. Capillary Refill: Capillary refill takes 2 to 3 seconds. Findings: Lesion (anterior lt ear) present. No rash. Neurological: General: No focal deficit present. Mental Status: She is alert and oriented to person, place, and time. Psychiatric: Mood and Affect: Mood normal. Behavior: Behavior normal. Thought Content: Thought content normal. Judgment: Judgment normal. ASSESSMENT AND PLAN: No follow-ups on file. Problem List Items Addressed This Visit Hypertension (CMS/HCC) - Primary Will try treating for anxiety Only have her check BP evening time 3-4 days per week Fu in 6 weeks Anxiety Add buspar Advised how to take, and side effects Fu in 6 weeks Relevant Medications busPIRone (Buspar) 5 MG tablet Neoplasm of uncertain behavior Refer to derm Relevant Orders Ambulatory referral to Dermatology * Rosemary Michelle NP - 03/06/2025 6:47 AM EDTAssociated Problem(s): Hypertension (CMS/HCC) Will try treating for anxiety Only have her check BP evening time 3-4 days per week Fu in 6 weeks documented in this [facility]06-05-2025 Instructions* Patient Instructions* Rosemary Michelle NP - 03/06/2025 11:30 AM EDT 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, 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 Buspar (buspirone) 5mg pill every 12 hours as needed for anxiety Check blood pressures 4 evenings per week documented in this [facility]05-01-2025 Evaluation note* Diagnosis Onset Date Resolution Status Admit Date Sinusitis acuteMay 2024 10:41amIncreased frequency of urinationnoneactiveMay 2024 10:41am [facility] Work Phone: [phone] 169-382810-22-2024 History of Present illness Narrative* Rosemary Michelle NP - 07/23/2024 10:55 AM EDTAssociated Problem(s): Encounter for subsequent annual wellness visit (AWV) in Medicare patient Reviewed Ht/Wt/BMI Recommend eye exam yearly Recommend dental exams twice a year Balance work/leisure activities Exercises is recommended most days of the week (appropriate as chronic conditions allow) Follow up yearly and prn * JARAD IPTT - 07/23/2024 10:00 AM EDT Sinus/allergies- couple weeks now. Allergy medication and nasal spray is not helping. Pain in the frontal lobe, stuffy/runny nose, some green mucus, phlegm in the back of the throat, pressure and headaches. Pt had mammogram done today Pt will need a refill on her cream for lichens * Rosemary Michelle NP - 07/23/2024 10:00 AM EDT Images from the original note were not [...] 4 weeks ago. The problem has been graduallyworsening since onset. There has been no fever. [...] Relevant Orders Flu vaccine, trivalent, adjuvanted, PF ([id number]) (Fluad trivalent single dose syringe) Subacute frontal sinusitis Relevant Medications azithromycin (Zithromax) 250 MG tablet Encounter for subsequent annual wellness visit (AWV) in Medicare patient Reviewed Ht/Wt/BMI Recommend eye exam yearly Recommend dental exams twice a year Balance work/leisure activities Exercises is recommended most days of the week (appropriate as chronic conditions allow) Follow up yearly and prn documented in this encounterUniversity Health Lakewood Medical CenterYixoiccvgo15-20-0615 Evaluation note* Encounter Date Diagnosis Assessment Notes Treatment Notes Treatment Clinical Notes Apr, Pain of right heel (ICD-10 - M79 .671) Apr,alcaneal spur of right foot (ICD-10 - M77.31)Drink plenty fluids, get plenty of rest. Take Tylenol as needed for pain. Consider rolling your foot on a bottle of frozen water for comfort. Put an extra pad in the heel of your right shoe. 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 in 5 to 7 days Apr,OtherCalcaneal Spur material was printed [facility] Other Evaluation noteNo assessment information available [facility] Work Phone: Evaluation note* Diagnosis Dysuria- Primary Trapezius muscle strain, left, initial encounter Trapezius muscle strain, left, subsequent encounter- Primary Trapezius muscle strain, left, subsequent encounter- Primary Acute non-recurrent pansinusitis Trapezius muscle strain, left, subsequent encounter- Primary Encounter for subsequent annual wellness visit (AWV) in Medicare patient- Primary Gastroesophageal reflux disease without esophagitis Esophageal reflux Age-related osteoporosis without current pathological fracture (CMS/HCC) Mixed urge and stress incontinence Mixed incontinence urge and stress (male)(female) Needs flu shot Need for prophylactic vaccination and inoculation against influenza Subacute frontal sinusitis documented [facility]* Diagnosis Onset Date Resolution Status Admit Date Sinusitis acuteMay 2024 10:41amIncreased frequency of urinationnoneactiveMay 2024 10:41am [facility] Work Phone: Evaluation note* Diagnosis Dysuria- Primary Trapezius muscle strain, left, initial encounter Trapezius muscle strain, left, subsequent encounter- Primary Trapezius muscle strain, left, subsequent encounter- Primary Acute non-recurrent pansinusitis Trapezius muscle strain, left, subsequent encounter- Primary Encounter for subsequent annual wellness visit (AWV) in Medicare patient- Primary Gastroesophageal reflux disease without esophagitis Esophageal reflux Age-related osteoporosis without current pathological fracture (CMS/HCC) Mixed urge and stress incontinence Mixed incontinence urge and stress (male)(female) Needs flu shot Need for prophylactic vaccination and inoculation against influenza Subacute frontal sinusitis Hypertension, unspecified type (CMS/HCC)- Primary Open wound Open wound(s) (multiple) of unspecified site(s), without mention of complication Hypertension, unspecified type (CMS/HCC)- Primary Anxiety Anxiety state, unspecified 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, site unspecified documented [facility]* Diagnosis Dysuria- Primary Trapezius muscle strain, left, initial encounter Trapezius muscle strain, left, subsequent encounter- Primary Trapezius muscle strain, left, subsequent encounter- Primary Acute non-recurrent pansinusitis Trapezius muscle strain, left, subsequent encounter- Primary Encounter for subsequent annual wellness visit (AWV) in Medicare patient- Primary Gastroesophageal reflux disease without esophagitis Esophageal reflux Age-related osteoporosis without current pathological fracture Mixed urge and stress incontinence Mixed incontinence urge and stress (male)(female) Needs flu shot Need for prophylactic vaccination and inoculation against influenza Subacute frontal sinusitis Hypertension, unspecified type- Primary Open wound Open wound(s) (multiple) of unspecified site(s), without mention of complication Hypertension, unspecified type- Primary Anxiety Anxiety state, unspecified 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, site unspecified 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 Neoplasm of unspecified behavior of bone, soft tissue, and skin documented [facility] this [facility]* Diagnosis Dysuria- Primary Trapezius muscle strain, left, initial encounter Trapezius muscle strain, left, subsequent encounter- Primary Trapezius muscle strain, left, subsequent encounter- Primary Acute non-recurrent pansinusitis Trapezius muscle strain, left, subsequent encounter- Primary Encounter for subsequent annual wellness visit (AWV) in Medicare patient- Primary Gastroesophageal reflux disease without esophagitis Esophageal reflux Age-related osteoporosis without current pathological fracture Mixed urge and stress incontinence Mixed incontinence urge and stress (male)(female) Needs flu shot Need for prophylactic vaccination and inoculation against influenza Subacute frontal sinusitis Hypertension, unspecified type- Primary Open wound Open wound(s) (multiple) of unspecified site(s), without mention of complication Hypertension, unspecified type- Primary Anxiety Anxiety state, unspecified 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, site unspecified Primary hypertension- Primary Unspecified essential hypertension Anxiety Anxiety state, unspecified Chronic rhinitis documented in this encounter [facility] general Narrative - Reported* Type Description Date Medical History GERD (gastroesophageal reflux di sease) Medical HistorySeasonal allergic rhinitisSurgical HistoryC sectionSurgical Historyhysterectomy [facility] Other Summary Purpose Family History No Family History Records Found Relationship Condition Age at Onset Recorded Date/T [place] father Diabetes mellitus Unknown DeceasedUnknownfamily memberDeceasedUnknownmotherDeceasedUnknownHistory of strokeUnknownsisterDeceasedUnknown Advance Directives No Advanced Directives Records Found Advance Directive Response Recorded Date/ Time Advance Directives No December 07 11:36am Chief Complaint and Reason for Visit Chief Complaint Admit Date Poss UTI, sinus pressure January 30, 2025 1 0:41am Reason for Visit Admit Date Sinusitis January 30, 2025 10:41a m Increased frequency of urination January 10:41am Additional Source Comments INFORMATION SOURCE (unrecogn ized section and content) DATE CREATED AUTHOR 06/07/2022 [facility] DATE CREATED AUTHOR AUTHOR'S ORGANIZ ATION 02/08/2025 [facility] DATE CREATED AUTHOR AUTHOR'S ORGANIZ ATION 04/24/2025 [facility] EPIC Care Teams (unrecognized sec tion and content) Team Status: Inactive Member Role Status Dates Brenda Majano NP-C Attending Provider Active Team MemberRelationshipSpecialtyStart DateEnd Date Rosemary Michelle NP [address] [place] [address] PCP - Tyron MCMAHON01/31/24 UnallocatMaynor holland MD [facility] [place] [address] PCP - GeneralFamily Qwixaolv12/15/24 Rosemary Michelle NP [address] [place] [address] Nurse PractitionerFamily Medicine12/05/23Team MemberRelationshipSpecialtyStart DateEnd Date Rosemary Michelle NP [address] [place] [address] PCP Susan Ackerman MA01/31/24 UnallocatedMaynor MD [address] [place] [address] PCP - GeneralFamily Oggstzem20/15/24 Rosemary Michelle NP [address] [place] [address] [facility] Medicine12/05/23Team MemberRelationshipSpecialtyStart DateEnd Date Rosemary Michelle NP [address] [place] [phone] PCP - Tyron MCMAHON01/31/24 UnallocatedMaynor MD [address] [place] [address] PCP - [facility] Kqkvxgow53/15/24 Rosemary Michelle NP [address] [place] [phone] Nurse PractitionerAugust[facility]12/05/23 Team Status: Active Member Role Status Dates Rosemary Michelle Primary Care Provider Active Team Status: Inactive Member Role Status Dates Rosemary Michelle Primary Care Provider Active Sta rt: January 30, 2025 End: January 30Varsha Duron ProviderActiveStart: January 30, 2025 End: January 30, 2025Team MemberRelationshipSpecialtyStart DateEnd Date Rosemary Michelle NP [address] [place] [phone] PCP - Tyron MCMAHON01/31/24 Simone Lovelace MD [address] [place] [address] PCP - GeneralFamily Yelniimi72/31/24 Rosemary Michelle NP [address] [place] [address] Nurse PractitionerFamily Medicine12/05/23Team MemberRelationshipSpecialtyStart DateEnd Date Rosemary Michelle NP [address] [place] [address] PCP - Tyron MCMAHON01/31/24 Simone Lovelace MD [address] [place] [address] PCP - GeneralFamily Fjmtptaz72/31/24 Rosemary Michelle NP [address] [place] [address] Nurse Pract[facility]Mal[facility] Medicine12/05/23Team MemberRelationshipSpecialtyStart DateEnd Date Rosemary Michelle NP [address] [place] [address] PCP - Tyron MCMAHON01/31/24 Simone Lovelace MD [address] [place] [address] PCP - GeneralFamily Bpczdipl65/31/24 Rosemary Michelle NP [address] [place] [address] Nurse PractitionerUnitypoint Health-Jones Regional Medical Centerly Medicine12/05/23Team MemberRelationshipSpecialtyStart DateEnd Date Rosemary Michelle NP [address] [place] [address] PCP - Tyron MCMAHON01/31/24 Simone Lovelace MD [address] [place] [address] [facility] - [facility] Mljatjzt01/31/24 Rosemary Michelle NP [address] [place] [address] Nurse PractitionerAugust[facility]12/05/23Team MemberRelationshipSpecialtyStart DateEnd Date Rosemary Michelle NP [address] [place] [address] PCP - Tyron MCMAHON01/31/24 Simone Lovelace MD [address] [place] [address] PCP - [facility] Nbwklmcs82/31/24 Rosemary Michelle NP [address] [place] [address] Nurse PractitionerMal[facility] Hospital Medicine12/05/23Team MemberRelationshipSpecialtyStart DateEnd Date Rosemary Michelle NP [address] [place] [address] PCP - Tyron MCMAHON01/31/24 Simone Lovelace MD [address] [place] [address] PCP - GeneralFamily Xjivpiml40/31/24 Rosemary Michelle NP [address] [place] [phone] Nurse PractitionerFamily Medicine12/05/23 Goals (unrecognized section and content) Goals may be documented in a n alternate sectionNo InformationGoals may be documented in an alternate sectionGoals may be documented in an alternate section REASON FOR VISIT (unrecogniz ed section and content) ReasonCommentsHypertensionReasonCommentsSuspicious Skin LesionSpecialtyDiagnoses / ProceduresReferred By ContactReferred To ContactDermatology Diagnoses Neoplasm of uncertain behavior Procedures SD OFFICE/OUTPATIENT NEW HIGH MDM 60 MINUTES Rosemary Michelle NP [address] [place] [address] Phone: tel: fax: Tram Martínez MD [address] [place] [address] Phone: tel: fax: Referral IDStatusReasonStart DateExpiration DateVisits RequestedVisits [id number] Specialty Services Required [id number] FOR RECORDS PERTAINING TO PATIENTS WHO ARE [...] BE BASED ON THE PRIMARY CLINICAL RECORDS. [facility]. provides no warranty or guarantee of the accuracy or completeness of information in this document.
[2025-07-28 12:07] LABS: Hematocrit 40.2 % (36.0-48.0); Hemoglobin 13.2 g/dL (12.0-16.0); Immature Granulocytes Abs Auto 0.02 10^3/uL (0.00-0.03); Immature Granulocytes Pct Auto 0.3 % (0.0-0.5); Lymphocytes Absolute Auto 1.2 10^3/uL (1.2-3.8); Mean Corpuscular HGB Conc 32.8 g/dL (29.9-35.2); Mean Corpuscular Hemoglobin 30.1 pg (26.7-34.0); Mean Corpuscular Volume 91.6 fL (81.0-99.0); Platelet Count 308 10^3/uL (150-450); Red Blood Count 4.39 10^6/uL (4.20-5.40); White Blood Count 6.7 10^3/uL (4.0-11.0)
[2025-07-28 12:09] LABS: Alanine Aminotransferase 48 U/L (14-59); Albumin Globulin Ratio 0.9; Albumin Level 3.5 g/dL (3.4-5.0); Alkaline Phosphatase 78 U/L (46-116); Anion Gap 12.8; Aspartate Amino Transferase 33 U/L (15-37); Blood Urea Nitrogen 21.0 mg/dL (7.0-18.0); Calcium 9.8 mg/dL (8.5-10.1); Carbon Dioxide 31.5 mmol/L (21.0-32.0); Chloride 99 mmol/L (98-107); Estimated GFR (African America >60 (>=60 mL/min/1.73m^2); Estimated GFR (Non-African Ame 59 (>=60 mL/min/1.73m^2); Globulin 3.7 g/dL; Glucose 103 mg/dL (74-106); Potassium 4.3 mmol/L (3.5-5.1); Sodium 139 mmol/L (136-145); Total Protein 7.2 g/dL (6.4-8.2)
[2025-07-28 12:12] LABS: Glucose Urine UA NEGATIVE (NEGATIVE)
[2025-07-28 12:27] LABS: Cast Seen? NONE SEEN #/LPF (NONE SEEN); Crystals Seen? None Seen #/HPF (None Seen)
== END 2025-07-28 11:29 | disposition home or self-care (01) ==
LOC: LAB 11:32
PROVIDERS: PCP Nurse Practitioner; Visit Provider Nurse Practitioner
DX: R39.9 Unspecified symptoms and signs involving the genitourinary system (principal); I10 Essential (primary) hypertension; M81.0 Age-related osteoporosis without current pathological fracture; F41.9 Anxiety disorder, unspecified
CPT/HCPCS: 36415; 80053; 81001; 82306; 85025; 87086

== ENCOUNTER 2025-08-01 09:14 | Outpatient (OUT) | payer MEDICARE, SELFPAY ==
--- OUTSIDE RECORDS SUMMARY | 2025-07-29 20:47 | XMS_ITS | Continuity of Care Document ---
Author Organization [facility] Address [address] [place] [address] Phone Care Team Providers Care Departmental Shipping Clerk Name Role Phone Rosemary Michelle NP-C Primary Care Provider [phone] Rosemary Michelle NP-Erika Attending Provider Care Teams Visit Care Team Team Status: Inactive Member Role/Relationship Status Dates Rosemary Michelle NP-Erika Primary Care Provider Active Start: July 28, 2025 End: July 28, 2025MAGO CarrollCAttending ProviderActiveStart: July 28, 2025 End: July 28, 2025 Patient Care Team Team Status: Inactive Member Role/Relationship Status Dates MYRTLE Carroll Attending Provider Active Start: July 28, 2025 End: July 28, 2025 Chief Complaint and Reason for Visit Chief Complaint Admit Date Medicare Wellness July 28, 2025 1 0:03am Unknown July 28, 2025 1 1:38am Reason for Visit Admit Date Age-related osteoporosis wit hout current pathological fracture July 28, 2025 10:03am AMD (age-related macular degeneration), wet July 28, 2025 10:03am Anxiety July 28, 2025 1 0:03am Breast cancer screening by mammogram Oct janes 2024 10:03am Encounter for subsequent joshua l wellness visit (AWV) in Medicare patient July [...] Legal Sex Female (finding) Sex Assigned At BirthFemaleApril 1939 Family History Relationship Condition Age at Onset Recorded Date/T valentina father Diabetes mellitus Unknown DeceasedUnknownfamily memberDeceasedUnknownmotherDeceasedUnknownHistory of strokeUnknownsisterDeceasedUnknown Problems Active Problems Problem Diagnosis/Recorded Date Onset Date Stat us Subacute frontal sinusitis July 09, 2025 8:21am Un known Active Mixed urge and stress incontinence July 09, 2025 8 :21am Unknown Active Encounter for subsequent joshua [facility] wellness visit (AWV) in Medicare patient [...] Problem Diagnosis/Recorded Date Onset Date Stat us GERD (gastroesophageal reflux disease) December 08, 2023 11:54am Unknown Resolved Seasonal allergic rhinitis December 08, 2023 11:54am Unk nown Resolved Medications Medication Status Dose Units Route Directions Qty Days Refills S tart Date Stop Date End Date Reason(s) Instructions Adherence Nitrofurantoin Monohyd/M-Cry st (Macrobid) 100 mg capsule Active 100 MG PO Twice daily 14 0Oct2024 12:00amSymptoms of urinary tract infection Unspecified symptoms and signs involving the genitourinary systemmust administer with a meal/foodUnknownLoratadine (Claritin) 10 mg itjavzWlhgcklqgsew0JVHCSUunii December 08, 2023 1:00amOctober 2024 2:41pmFreeTextSi tablet Orally Once a day; Note: Source Status: Taking; Provider: Gretel Gutierrez ( ) Fluticasone Propionate (Flonase Allergy Relief) 50 mcg/actuation spray,ftxuqojvzhJlrmqgyjzlzw4HVGUKEFHFHPEGCNBhpvxHsutk 2023 1:00amOct2024 10:45amFreeTextSi spray in each nostril Nasally Once a day; Note: Source Status: Not-Taking\PRN; Provider: Gretel Gutierrez ( )Vit W-B-Ywmwil-Zinc-Lutein (Preservision Lutein) 226-90-0.8-5 mg capsuleActiveCAPPO December 08, 2023 1:36syAudoidkOv-Fc-Vi3-Tku-Uho-Jokc-Lut-Kat (Ocuvite Adult 50 Plus) 250 mg (90 mg-160 mg) emjksxzRajumvndedwr6XLQUPMjespXtkkj 2023 1:00am July 28, 2025 10:44amCalcium Carbonate (Calcium 500) 500 mg calcium (1,250 mg) tablet,lphdzzsfRugcgr480PTHUKdffqHdkqh 2023 1:00amUnknownLansoprazole 15 mg capsule,delayed release(DR/EC)Jpmxuj84JQJQRjwedQiilf 2023 1:00am UnknownPrednisone 20 mg dpcpxxTccefimjunxk21ZNIUGiakr811Vcajo 2023 1:00am July 11, 2025 2:41pmLoratadine (Claritin) 10 mg rvkfuwKcqxvw61LFBLLefdn July 11, 2025 2:40pmUnknownFluticasone Propionate (Flonase Allergy Relief) 50 mcg/actuation spray,kgjxbxffrfVtxgsp8MFSBSXITYLJYTICZmvtrSexeosj 2024 10:45amFreeTextSi spray in each nostril Nasally Once a day; Note: Source Status: Not-Taking\PRN; Provider: Gretel Gutierrez ( )Unknown Azithromycin 250 mg jxzbbiFtveekrafoce2QH.TIWINMU56Cbx 2024 12:00amOctking's daughters medical [facility] 2024 2:42pmFor 250 mg dose pack: take 500 mg today (day 1), then 250 mg for 4 days (days 2-5) POPrednisone 20 mg dvusmeMmiidfxuumxa82WNMWMmpex570Pcayvrq 10th, 2025 2:41pmOctking's daughters medical center 2024 6:21amBuspirone 5 mg oeadfrDvwkqo9ZGJSTdstu dailyJuly 11, 2025 12:00amUnknownClobetasol 0.05 % zposcWseglt0TIZXPJ TOPICALTwice daily as neededM[facility]2024 12:00amUnknownPrednisone 20 mg ngkkixFxcwxorrnxdo68XHAOKvbzm721Sikedre 2024 6:21amOctking's daughters medical center 2024 10:33amLatanoprost 0.005 % iocicIjtodh2DOHXMWLSDWONIQMxuhhbCkwlrqy 2024 12:00amUnknownLisinopril 5 mg jrkznxJulwct9SUHDGqgpf964Zyswfil 2024 12:00amHypertension Essential (primary) hypertensionUnknown Immunizations Immunization Event Date Not Given Reason Dose Number Rn Observation Lot Number Reason(s) Given Vaccine Information Statement (VIS) Detail Administration Location Tetanus, Diphtheria adult, 5 Lf pres free abs Se ptember 2015 Procedures Procedure Date Performed Status Urine Culture July 28, 2025 active Relevant Diagnostic Tests and/or Laboratory Data Laboratory Results Test Collection Date/Time Result Date/Time Result Interpretation Reference Range Result Comment Performing Site Urine Other Casts July 28, 2025 11:36am NONE SEEN #/LPFNONE DUYE52-Xocpuef Vitamin D TotalOctober 2024 11:45am July 28, 2025 11:45am43.8 ng/mL<20 ng/mL Vit D lrjpbbteg24-<30 ng/mL Vit D vlbcjcexoqwu86-869 ng/mL Vit D sufficient>100 ng/mL Potential ToxicityAnion Gap July 28, 2025 11:45amOctober 2024 11:45am12.8Basophils # (Auto) July 28, 2025 11:45amOctober 2024 11:45am0.0 10 3/uL0.0-0.1Urine Other CrystalsOctober 2024 11:36amNone Seen #/HPFNone SeenAlbumin/Globulin RatioOctober 2024 11:45amOctober 2024 11:45am0.9Basophils (%) (Auto) July 28, 2025 11:45amOctober 2024 11:45am0.6 %0.2-2.0Urine Bacteria July 28, 2025 11:36amNONE SEEN #/HPFNONE SEENAlbuminOctober 2024 11:45amOctober 2024 11:45am3.5 g/dL3.4-5.0Eosinophils # (Auto)July 28, 2025 11:45amOctober 2024 11:45am0.1 10 3/uL0.0-0.7Urine Bilirubin July 28, 2025 11:36amNEGATIVENEGATIVEAlkaline PhosphataseOctober 2024 11:45amOctober 2024 11:45am78 U/T75-264Unocjigtkru (%) (Auto)July 28, 2025 11:45amOctober 2024 11:45am2.1 %0.9-7.0Urine Occult BloodOctober 2024 11:36amNEGATIVENEGATIVEAlanine Aminotransferase (ALT/SGPT)July 28, 2025 11:45amOctober 2024 11:45am48 U/E68-09DidybhlhtrTneqypr 2024 11:45amOctober 2024 11:45am40.2 %36.0-48.0Urine AppearanceOctober 2024 11:36amCLEARCLEARAspartate Amino Transf (AST/SGOT)July 28, 2025 11:45amOctober 2024 11:45am33 U/Z06-97NmtjrrhdqxXkaenig 2024 11:45am July 28, 2025 11:45am13.2 g/dL12.0-16.0Urine ColorOctober 2024 11:36amLT. YELLOWYELLOWBUN/Creatinine RatioOctober 2024 11:45amOctober 2024 11:45am23.1Immature Granulocyte # (Auto)July 28, 2025 11:45am July 28, 2025 11:45am0.02 10 3/uL0.00-0.03Urine Glucose (UA)July 28, 2025 11:36amNEGATIVE mg/dLNEGATIVEBlood Urea NitrogenOctober 2024 11:45am July 28, 2025 11:45am21.0 mg/dLAbove high normal7.0-18.0Immature Granulocyte % (Auto)July 28, 2025 11:45amOctober 2024 11:45am0.3 % 0.0-0.5Urine KetonesOctober 2024 11:36amNEGATIVE mg/dLNEGATIVECalcium LevelOctober 2024 11:45amOctober 2024 11:45am9.8 mg/dL8.5-10.1 Lymphocytes # (Auto)July 28, 2025 11:45amOctober 2024 11:45am1.2 10 3/uL1.2-3.8Urine Leukocyte EsteraseOctober 2024 11:36amTRACEAbnormal (applies to non-numeric results)NEGATIVEChloride LevelOctober 2024 11:45am July 28, 2025 11:45am99 mmol/P07-367Ghnbdrugclz (%) (Auto)July 28, 2025 11:45amOctober 2024 11:45am17.2 %Below low btucsu03.5-60.0Urine Mucus July 28, 2025 11:36amNONE SEENNONE SEENCarbon Dioxide LevelOctober 2024 11:45amOct2024 11:45am31.5 mmol/L21.0-32.0Mean Corpuscular HemoglobinOct2024 11:45amOctober 2024 11:45am30.1 pg26.7-34.0 Urine NitriteOct2024 11:36amNEGATIVENEGATIVECreatinineOct2024 11:45amOct2024 11:45am0.91 mg/dL0.55-1.02Mean Corpuscular Hemoglobin ConcentOct2024 11:45amOct2024 11:45am32.8 g/dL 29.9-35.2Urine pHOctober 2024 11:36am5.55.0-9.0Estimated GFR ()July 28, 2025 11:45amOct2024 11:45am>60>=60 mL/min/1.73m 2Mean Corpuscular VolumeOctober 2024 11:45amOct2024 11:45am91.6 fL81.0-99.0Urine ProteinOct2024 11:36amNEGATIVE mg/dLNEG/TRACEEstimated GFR (Non- AmericanOctober 2024 11:45am July 28, 2025 11:12lz25Ybpql low normal>=60 mL/min/1.73m 2Monocytes # (Auto)July 28, 2025 11:45amOctober 2024 11:45am0.5 10 3/uL0.3-0.8 Urine RBCOctober 2024 11:07cp1-2 #/HPF0-2GlobulinOct2024 11:45amOctober 2024 11:45am3.7 g/dLMonocytes (%) (Auto)July 28, 2025 11:45amOctober 2024 11:45am8.1 %1.7-12.0Urine Specific GravityOctober 2024 11:36am1.0101.005-1.025Glucose LevelOctober 2024 11:45amOctober 2024 11:97bh481 mg/cZ42-877Kaon Platelet VolumeOctober 2024 11:45am July 28, 2025 11:45am9.9 fL9.5-13.5Urine Squamous Epithelial CellsOct2024 11:36amRARE #/LPFNONE/RAREPotassium LevelOct2024 11:45am July 28, 2025 11:45am4.3 mmol/L3.5-5.1Neutrophils # (Auto)July 28, 2025 11:45amOctober 2024 11:45am4.8 10 3/uL1.4-6.5Urine Urobilinogen July 28, 2025 11:36am0.2 EU/dL0.2-1.0Sodium LevelOctober 2024 11:45am July 28, 2025 11:53ly130 mmol/I616-948Vjklrteolmo (%) (Auto)July 28, 2025 11:45amOctober 2024 11:45am71.7 %43.0-75.0Urine WBCOctober 2024 11:39qx14-16 #/HPFAbnormal (applies to non-numeric results)NONE SEENTotal BilirubinOctober 2024 11:45amOctober 2024 11:45am0.4 mg/dL0.2-1.0 Platelet CountOctober 2024 11:45amOctober 2024 11:06em401 10 3/uL 150-450Total ProteinOctober 2024 11:45amOctober 2024 11:45am7.2 g/dL 6.4-8.2Red Blood CountOct2024 11:45amOctober 2024 11:45am4.39 10 6/uL4.20-5.40Red Cell Distribution WidthOctking's daughters medical center 2024 11:45amOctking's daughters medical center 2024 11:45am12.3 %11.0-15.0Corrected White Blood CountOctking's daughters medical center 2024 11:45amOctking's daughters medical center 2024 11:45am6.7 10 3/uL4.0-11.0 Vital Signs Vital Reading Result Reference Range Collection Date/Time Height 58 [in_i] July 28, 2025 10:81lvShccxh79.52 kgOctking's daughters medical center 2024 10:15amBody Gzvdpihewwz84.1 [degF]97.6-99.0[facility] 2024 10:15amHeart Rate83 /asj17-283 July 28, 2025 10:15amRespiratory rate18 /deu84-99Ilnwjsh 2024 10:15am Oxygen saturation by Pulse mqkrljsa58 %95-100Octking[facility] 2024 10:15amBP Enkjdgjj656 mm[Hg]100-140Octking's daughters medical [facility] 2024 10:15amBP Kmcfjqemr75 mm[Hg]60-100 July 28, 2025 10:15amBMI (Body Mass Index)24.6 kg/r7Msgyqne 2024 10:15am Advance Directives Advance Directive Response Recorded Date/ Time Advance Directives No December 07 11:36am Insurance Providers Guarantor [place] Tristian Esmer Address [address] [address]Sqdnjjq Info.Home Phone: Payer Group Member ID Coverage Type Subscriber Relationship to Subscriber Effective Date Expiration Date Tyron FRANCISCO PFFS Id: [id number] L Esmer Id: [id number] [address] [facility] [address] Home Phone: Self Encounters Encounter Location(s) Arrival/Admit Date Discharge/Departure Date Discharge/Departure Disposition Provider(s) Departed Physician/ Provider Office Visit -[facility] [place] July 28, 2025 10:03am July 28, 2025 11:08am Discharged to home care or self care (routine discharge) MYRTLE Carroll Departed Referred -[facility] July 28, 2025 11:38am July 28, 2025 11:39am Discharged to home care or self care (routine discharge) MYRTLE Carroll Recent Diagnosis Onset Date Admit Date Age-related osteoporosis wit hout current pathological fracture Unknown July 28, 2025 10:03am AMD (age-related macular degeneration), wet Unkn own July 28, 2025 10:03am Anxiety Unknown July 28 10:03am Breast cancer screening by mammogram Unknown July 28, 2025 10:03am Encounter for subsequent joshua ual wellness visit (AWV) in Medicare patient Unknown July 28, 2025 10:03am HTN (hypertension) Unknown July 28, 2025 10:03am UTI symptoms Unknown July 28 10:03am Assessments Diagnosis Onset Date Resolution Status Admit Date Age-related osteoporosis without current pathological fracture acuteOctober 2024 10:03amAMD (age-related macular degeneration), wetacute July 28, 2025 10:03amAnxietyacuteOctober 2024 10:03amBreast cancer screening by mammogramacuteOctober 2024 10:03amEncounter for subsequent annual wellness visit (AWV) in Medicare patientacuteOctober 2024 10:03am HTN (hypertension)acuteOctober 2024 10:03amUTI symptomsacuteOctober 2024 10:03am Plan of Treatment Author Rosemary Michelle [facility] CenterAuthoredOctober 2024 11:13amReviewed Ht/Wt/BMI Recommend eye exams yearly Recommend dental exam: twice a year Balance work/leisure activities exercise is recommended most days of the week (appropriate as chronic conditions allow) follow up yearly and prn Please check blood pressure daily and record DASH diet Limit caffeine Take medication as directed Contact office if chest pain, pressures, dizziness, shortness of breath, swelling in the legs Recommend slow position changes if you develop dizziness with position changes has not been taking any meds in the past for this, home reads 130-150 SBP will add low dose of lisinopril at 5mg daily fu in 4 weeks for BP check under care of opthamology does take pressur vision eye vitamins pr declines dexa is scheduled for this week continue buspar does once a day prn dysuria, noted, no fever, chills, or blood will check urine and culture Future Tests Future scheduled test information is unavailable Pending Tests Test Name Ordered Date Scheduled Date Urine Culture July 28, 2025 11:38am MM diagnostic mammo BI w/CADOctober 2024 6:23am Future Visits Future appointment information is unavailable Future Procedures Procedure Name Ordered Date Scheduled Date Urine Culture July 29, 2025 6:32am Octobe r 2024 11:38am Dipstick and Microscopic July 28, 2025 6:23 am Urine CultureOctober 2024 11:03am Future Medications Future medication information is unavailable Patient Instructions Patient instructions are unavailable
--- NOTE | 2025-08-01 09:16 | MM_ITS ---
Patient Name: PIPPA FELIPE MR#: [id number] : 1940 Exam Date: 08/01/2025 Ordering Doctor: MUSA PACHECO CNP RADIOLOGY REPORT PROCEDURE: MM TOMOSYNTHESIS SCREENING BI COMPARISON: MM TOMOSYNTHESIS SCREENING BI, 07/23/2024. MM TOMOSYNTHESIS SCREENING BI, 06/21/2023. MG MAMM SCREEN 3D BROOK CAD, 06/03/2022. MG MAMM BROOK SCRN W CAD DIG, 05/11/2009. INDICATIONS: Screening Calculator Name NCI Breast Cancer Risk Assessment Tool 5 Year Breast Cancer Risk 1.80% Lifetime Breast Cancer Risk 1.80% Personal Breast Cancer No Personal Ovarian Cancer No Treatments None Family Cancers Grandfather-maternal with lung cancer at age ~58. LOCATION: [facility] BREAST COMPOSITION: The breasts are heterogeneously dense, which may obscure small masses. FINDINGS: RIGHT BREAST: No significant suspicious finding. LEFT BREAST: No significant suspicious finding. DIAGNOSTIC CATEGORY 1--NEGATIVE. RECOMMENDATIONS: ROUTINE MAMMOGRAM AND CLINICAL EVALUATION IN 12 MONTHS. Dictated by: Jose Macias DO on 08/01/2025 at 11:14 Approved by: Jose Macias DO on 08/01/2025 at 11:24
--- OUTSIDE RECORDS SUMMARY | 2025-08-01 09:17 | XMS_ITS | Encounter Summary ---
Author Organization [facility] Address [address] [place] [address] Care Team Providers Care Clinical Laboratory Aides Teacher Name Role Phone Rosemary Michelle INSPECTOR CHIEF Unavailable [phone] Rosemary Michelle INSPECTOR CHIEF Unavailable [phone] Unallocated, [facility] Provider Primary Care Provi bruno Simone Monk MD Primary Care Provider [phone] Encounter Details DateTypeDepartmentCare Team (Latest Contact Info)Txzxohzlomb64/22/2024Clinisync Result Encounter [facility] External Department Unsolicited Rosemary Michelle, INSPECTOR CHIEF [address] [place] [address] Social History Tobacco UseTypesPacks/DayYears UsedDateSmoking Tobacco: NeverSmokeless Tobacco: NeverAlcohol UseStandard Drinks/WeekCommentsNever0 (1 standard drink = 0.6 oz pure alcohol)caffine: coffiee 2 daily and sodaPHQ-2AnswerDate RecordedPatient Health Questionnaire-2 [id number] and Gender InformationValueDate RecordedSex Assigned at BirthNot on fileLegal SexFemale 12/14/2022 6:58 PM EDTGender IdentityNot on fileSexual OrientationNot on file documented as of this encounter Functional Status * Over the past 2 weeks, how often have you been bothered by any of the following problems?QuestionAnswerDate of AssessmentAuthorLittle interest or pleasure in doing thingsNot at all07/23/2024 10:21 AM EDTHumbarger, Nancy, MAFeeling down, depressed, or hopelessNot at all07/23/2024 10:21 AM Nancy Pabon MAPatient Health Questionnaire-2 Eiaan634 10:21 AM Nancy Hodges MA * QuestionAnswerDate of AssessmentAuthorTrouble falling or staying asleep, or sleeping too muchSeveral days07/23/2024 10:21 AM Nancy Hodges MA Feeling tired or having little energyNot at all07/23/2024 10:21 AM Nancy Pabon MAPoor appetite or overeatingNot at all07/23/2024 10:21 AM Nancy Hodges, MAFeeling bad about yourself - or that you are a failure or have let yourself or your family downNot at all07/23/2024 10:21 AM Nancy Hodges MATrouble concentrating on things, such as reading the newspaper or watching televisionNot at all07/23/2024 10:21 AM Nancy Hodges, MAMoving or speaking so slowly that other people could have noticed? Or the opposite - being so fidgety or restless that you have been moving around a lot more than usual.Not at all07/23/2024 10:21 AM Nancy Hodges MAThoughts that you would be better off or hurting yourself in some wayNot at all07/23/2024 10:21 AM Nancy Hodges MAPatient Health Questionnaire-9 Kfhdy020 10:21 AM Nancy Hogdes MA * How difficult have these problems made it for you to do your work, take care of things at home, or get along with other people?AnswerDate of Assessment AuthorNot difficult at all07/23/2024 10:21 AM Nancy Hodges MA * Geriatric Depression Scale (Short Version)QuestionAnswerDate of Assessment AuthorAre you basically satisfied with your life?Yes07/23/2024 10:23 AM Nnacy Pabon MAHave you dropped many of your activities and interests? No07/23/2024 10:23 AM Nancy Hodegs MADo you feel that your life is empty?No07/23/2024 10:23 AM Nancy Hodges MADo you often get bored?No 07/23/2024 10:23 AM Nancy Hodges MAAre you in good spirits most of the time?Yes07/23/2024 10:23 AM Nancy Hodges MAAre you afraid that something bad is going to happen to you?No07/23/2024 10:23 AM Nancy Hodges MADo you feel happy most of the time?Yes07/23/2024 10:23 AM EDT Nancy Clifford MADo you often feel helpless?No07/23/2024 10:23 AM EDT Nancy Clifford MADo you prefer to stay at home, rather than going out and doing new things?No07/23/2024 10:23 AM Nancy Hodges MADo you feel you have more problems with memory than most?No07/23/2024 10:23 AM EDT Nancy Clifford MADo you think it is wonderful to be alive now?Yes 07/23/2024 10:23 AM Nancy Hodges MADo you feel pretty worthless the way you are now?No07/23/2024 10:23 AM Nancy Hodges MADo you feel full of energy?Yes07/23/2024 10:23 AM Nancy Hodges MADo you feel that your situation is hopeless?No07/23/2024 10:23 AM Nancy Hodges MADo you think that most people are better off than you are?No07/23/2024 10:23 AM Nancy Hodges MAGeriatric Depression Scale (Short Version) Total0 07/23/2024 10:23 AM Nancy Hodges MA documented as of this encounter Plan of Treatment Not on file documented as of this encounter Procedures Procedure NamePriorityDate/TimeAssociated DiagnosisCommentsMM TOMOSYNTHESIS SCREENING BI07/23/2024 11:12 AM EDT documented in this encounter Results * MM TOMOSYNTHESIS SCREENING BI (07/23/2024 11:12 AM EDT)Anatomical Region LateralityModalityOtherSpecimen (Source)Anatomical Location / Laterality Collection Method / VolumeCollection TimeReceived Time07/23/2024 11:12 AM EDT Narrative 07/23/2024 11:14 AM EDT [facility] ?[address] ? [place] [address] ? Mammography Report ? Signed ? Patient: MATTEO,MELIDA L ?MR#: [id number] ?? : 1940 ?Acct:[id number] ?? Age/Sex: 84 / F ?ADM Date: 07/23/24 ?? Loc: MAMMO ? Attending Dr: Rosemary Michelle NP ? Ordering Physician: Rosemary Michelle NP ?Results: ? Date of Service: 07/23/24 ?Follow Up: ? Procedure(s): MM tomosynthesis screening BI ?? Accession Number(s): [id number] ? cc: Rosemary Michelle NP; Simone Monk M.D. ? Patient Name: ? MELIDA FELIPE ? MR#: [id number] ? : 1940 ? Exam Date: 07/23/2024 ?? Ordering Doctor: MUSA Michelle CNP ? RADIOLOGY REPORT ? PROCEDURE: ? MM TOMOSYNTHESIS SCREENING BI ? COMPARISON: ? MG MAMM SCREEN 3D BROOK CAD, 06/03/2022. ??MM TOMOSYNTHESIS ?? SCREENING BI, 06/21/2023. ? INDICATIONS: ? Screening ? Calculator Name ? NCI Breast Cancer Risk Assessment Tool ?? 5 Year Breast Cancer Risk ? 1.90% ?? Lifetime Breast Cancer Risk ? 2.20% ?? Personal Breast Cancer ?No ?? Personal Ovarian Cancer ? No ?? Treatments ? None ?? Family Cancers ? Grandfather-maternal with lung cancer at age ??58. ? LOCATION: ? [facility] ? BREAST COMPOSITION: ? The breasts are heterogeneously dense,which may ?? obscure small masses. ? FINDINGS: ? DIAGNOSTIC CATEGORY 2--BENIGN FINDING. NO CHANGE FROM COMPARISON. ? Scattered benign-appearing nodules are present. ??Scattered benign-appearing ?? calcifications are present. ??Scattered benign-appearing lymph nodes are ?? present. ? RIGHT BREAST: ??No significant suspicious finding. ? LEFT BREAST: ??No significant suspicious finding. ? RECOMMENDATIONS: ? ROUTINE MAMMOGRAM AND CLINICAL EVALUATION IN 12 MONTHS. ? PLEASE NOTE: ??A NORMAL MAMMOGRAM DOES NOT EXCLUDE THE POSSIBILITY OF BREAST ?? CANCER. ??A CLINICALLY SUSPICIOUS PALPABLE LUMP SHOULD BE BIOPSIED. ? Dictated by: Herbert Cannon MD on 07/23/2024 at 11:11 ? Approved by: Herbert Cannon MD on 07/23/2024 at 11:12 ? Dictated By: ?Herbert Cannon M.D. ? Signed By: ?07/23/24 1114 ? DD/ 1112 ? TD/TT: ? On Awake Counselor: Procedure Note Radiology, Radiologist, - 07/23/[address] [address] Mammography Report Signed Patient: MELIDA FELIPE LMR#: [id number] : 1940Acct:[id number] Age/Sex: 84 / FADM Date: 07/23/24 Loc: MAMMO Attending Dr: Rosemary Michelle NP Ordering Physician: Rosemary Michelle NPResults: Date of Service: 07/23/24Follow Up: Procedure(s): MM tomosynthesis screening BI Accession Number(s): [id number] cc: Rosemary Michelle NP; Simone Monk M.D. Patient Name: MELIDA FELIPE MR#: [id number] : 1940 Exam Date: 07/23/2024 Ordering Doctor: MUSA Michelle [employer] RADIOLOGY REPORT PROCEDURE: MM TOMOSYNTHESIS SCREENING BI COMPARISON: MG MAMM SCREEN 3D BROOK CAD, 06/03/2022. MM TOMOSYNTHESIS SCREENING BI, 06/21/2023. INDICATIONS: Screening Calculator Name NCI Breast Cancer Risk Assessment Tool 5 Year Breast Cancer Risk 1.90% Lifetime Breast Cancer Risk 2.20% Personal Breast Cancer No Personal Ovarian Cancer No Treatments None Family Cancers Grandfather-maternal with lung cancer at age 58. LOCATION: [facility] BREAST COMPOSITION: The breasts are [...] Herbert Cannon M.D. Signed By:07/23/24 1114 DD/ 111 TD/TT: On Awake Counselor: Authorizing ProviderResult TypeResult StatusLisa Michelle NPCLINISYNC IMAGING Final Result documented in this encounter Visit Diagnoses Not on filedocumented in this encounter Additional Health Concerns AssessmentNoted TimePHQ-9 Depression Total Score: 110 10:21 AM EDT documented as of this encounter Care Teams Team MemberRelationshipSpecialtyStart DateEnd Date Rosemary Michelle NP [address] [place] [address] PCP - Tyron MCMAHON01/31/24 Unallocated, Noms MD Mahsa [address] [place] [address] PCP - GeneralFamily Waivcwkg09/15/ Simone Monk MD [address] [place] [address] PCP - GeneralFamily Fygrxmjp97/31/24 Rosemary Michelle NP Nurse PractitionerFamily Medicine12/05/23documented as of this encounter
--- OUTSIDE RECORDS SUMMARY | 2025-08-01 09:17 | XMS_ITS | Patient Health Record ---
Author Organization [facility] [place] Address [address] [place] [address] Care Team Providers Care Lumber Checker Name Role Phone Rosemary Michelle CNP Primary Care Provider Unavail able Allergies Allergen (clinical drug ingredient) Drug/Non Drug Allergy documented on EMR Reaction Allergy Type Onset Date Status amoxicillin Amoxicillin Unknown Drug Allergy Activesulfamethoxazole / trimethoprimBactrimUnknownDrug AllergyActive Reason For Referral No Information Medications Medication SIG (Take, Route, Frequency, Duration) Notes Start Date End Date Status Prevacid 24HR 15 MG 1 capsule before a meal Oral ly Once a day Not-TakingPreserVision AREDS 2 -as directed OrallyActiveLoratadine 10 MG1 tablet Orally Once a dayNot-TakingClobetasol Propionate 0.05 %1 application Externally Twice a dayNot-TakingLansoprazole 15 MG1 capsule before a meal Orally Once a day ActiveCalcium 600 MG1 tablet with meals Orally Twice a dayActiveIbuprofen 200 MG 2 tablet with food or milk as needed Orally BIDActive Social History Tobacco Use: Social History Observation [...] MEDIBLUE DUAL ADV PRIMARY MEDICARE [address] [place] [address] [id number] Melida Lyman Self - patient is the [...] M81.0 Arthritis M19.90 Surgical History Surgery Date(Month/Year) hysterectomy 1981 c section 1Hospitalization History Reason Date(Month/Year) see above
--- OUTSIDE RECORDS SUMMARY | 2025-08-01 09:17 | XMS_ITS | Clinical Summary ---
Author Organization [facility] Address [address] [place] [address] Care Team Providers Care Director Immunology Name Role Phone JoseShameka steelea CUSTOMER OPERATIONS MANAGER Unavailable [phone] Rosemary Michelle CUSTOMER OPERATIONS MANAGER Unavailable [phone] Simone Monk MD Primary Care Provider [phone] Allergies Active AllergyReactionsCriticalityNoted GfjjMpdvmmmaSuhfgfqnnffShgjk54/05/2024 Sulfamethoxazole-EnmnncuziegjYrslv45/05/2024 Medications MedicationSigDispense QuantityRefillsLast FilledStart DateEnd DateStatus Multiple [...] and replace cap.Active Active Problems ProblemNoted DateDiagnosed LvosUilcalh63/05/2025 Assessment & Plan (04/23/2025 10:09 AM EDT): Current meds: lary Daily prn if she wants Assessment & Plan (03/06/2025 1:05 PM EDT): Add buspar Advised how to take, and side effects Fu in 6 weeks Neoplasm of uncertain /05/2025 Assessment & Plan (03/06/2025 1:05 PM EDT): Refer to derm Bglwsbvjlgvt38/22/2025 Assessment & Plan (04/23/2025 10:09 AM EDT): [...] white coat htn Needs flu shot07/23/2024Subacute frontal nfgezkbdx92/22/2024Encounter for subsequent annual wellness visit (AWV) in Medicare xdtgvqg8307/23/2024 Assessment & Plan (07/23/2024 10:55 AM EDT): Reviewed Ht/Wt/BMI Recommend eye exam yearly Recommend dental exams twice a year Balance work/leisure activities Exercises is recommended most days of the week (appropriate as chronic conditions allow) Follow up yearly and prn Macular zirbcuuhrvho50/13/2024hronic aancgvqp27/13/2024 Assessment & Plan (04/23/2025 10:10 AM EDT): Cont allergy meds and nasal spray Sinuses not a new finding DDD (degenerative disc disease), sphlokqk20/13/2024Lichen sclerosus of vulva 12/13/2023Gastroesophageal reflux disease without /13/2024ge- related osteoporosis without current pathological /13/2024Mixed urge and stress gldvjhtcaabf86/13/2024Trapezius muscle strain, left, subsequent hqknrignk46/13/2024 Assessment & Plan (01/17/2024 2:49 PM EDT): [...] pressure d/t pain Fu in 1 weeks Jyxixbo1312/05/2023 Assessment & Plan (12/05/2023 2:53 PM EST): Office urine dip, no nitrates or leukocytes Will send for culture fluids Resolved Problems ProblemNoted DateDiagnosed DateResolved DateOpen wound02/20/726279/5Acute non-recurrent uhbuyisiztsi43/27/202410/ Assessment & Plan (12/27/2023 9:10 AM EDT): Rest, fluids, finish atb Fu if not better Trapezius muscle strain, left, initial srdhtkatv59/ Assessment & Plan (12/05/2023 2:54 PM EST): Ibuprofen OTC BID for 7 days Ice 4-5 times daily Hand out on stretching exercises Fu if not better in a week Immunizations ImmunizationAdministration DatesNext DueInfluenza Whole10/11/2012Influenza, High-dose Seasonal, Quadrivalent, Preservative Free10/,07/24/2021 Influenza, Seasonal, Quadrivalent, Rxcfzptlhx33/25/2023,07/19/2022,07/16/2020 Influenza, seasonal, cexsurhquu28/10/2014Influenza, trivalent, adjuvanted 07/23/2024Tdap06/11/2016 Social History Tobacco UseTypesPacks/DayYears UsedDateSmoking Tobacco: NeverSmokeless Tobacco: Never Tobacco Cessation:Counseling Given: Not Answered Alcohol UseStandard Drinks/WeekCommentsNever0 (1 standard drink = 0.6 oz pure alcohol)caffine: coffiee 2 daily and sodaPHQ-2AnswerDate RecordedPatient Health Questionnaire-2 Cwilq976CommentsUnknownSex and Gender InformationValueDate RecordedSex Assigned at BirthNot on fileLegal SexFemale 12/14/2022 6:58 PM EDTGender IdentityNot on fileSexual OrientationNot on file Last Filed Vital Signs Vital SignReadingTime TakenCommentsBlood Uokhajyd054/7007 10:03 AM EDT Jdmwn197204/23/2025 9:31 AM TFNOlatfjgadho15.7 ??C (98.1 ??F)04/23/2025 9:31 AM EDTRespiratory Kzkf901204/23/2025 9:31 AM EDTOxygen Tqscrqqqgz93%04/23/2025 9:31 AM EDTInhaled Oxygen Concentration--Gmmpxn53.6 kg (118 lb 3.2 oz)04/23/2025 9:31 AM LTSIlvddj741.1 cm (4' 9.5 )07/23/2024 10:14 AM EDTBody Mass Index25.14 07/23/2024 10:14 AM EDT Plan of Treatment Health MaintenanceDue DateLast DoneCommentsInfluenza Vaccine (#1)06/02/2025 07/23/2024, 07/26/2023, 07/19/2023, Additional history existsMedicare Annual Wellness (AWV), 07/23/2024, 07/03/2023, Additional history existsPneumococcal Vaccine: 65+ YearsDiscontinued Insurance Care Teams Team MemberRelationshipSpecialtyStart DateEnd Date Rosemary Michelle NP [address] [place] [address] PCP - [place]01/31/24 Simone Monk MD [address] [place] [address] PCP - GeneralFamily Mqtylthu61/31/24 Rosemary Michelle NP Nurse PractitionerFamily Medicine12/05/23
--- OUTSIDE RECORDS SUMMARY | 2025-08-01 09:20 | XMS_ITS | CCD ---
Author Organization [facility] Care Team Providers Care Dye Range Operator Cloth Name Role Phone AICHHOLZ, LOGISTICS DIRECTOR ROSEMARY Admitting Unavailable AICHHOLZ, LOGISTICS DIRECTOR ROSEMARY Attending Unavailable DR SIMONE LOVELACE Primary Care Unavailable WEST, DR DIETER Garcai Consulting Unavailable AICHHOLZ, LOGISTICS DIRECTOR ROSEMARY Consulting Unavailable AICHHOLZ, LOGISTICS DIRECTOR ROSEMARY Admitting Unavailable AICHHOLZ, LOGISTICS DIRECTOR ROSEMARY Attending Unavailable DR SIMONE LOVELACE Primary Care Unavailable AICHHOLZ, LOGISTICS DIRECTOR ROSEMARY Consulting Unavailable Gretel, JUAN PABLO-C Brenda Attending Provider Brenda Majano Unavailable Aichholz BANK ADVISOR, Rosemary Unavailable Aichkayz BANK ADVISOR, Rosemary Unavailable Unallocated , Noms Provider Primary Care Provi bruno Shameka Michellea Cecilia Primary Care Provider Natalie Miller APRN Attending Provider Simone Lovelace MD Primary Care Provider AICHHOLZ, ROSEMARY Attending Unavailable AICHHOLZ, ROSEMARY Attending Unavailable RUFINO CORREIA Attending Unavailable AICHHOLZ, ROSEMARY Referring Unavailable AICHHOLZ, ROSEMARY Attending Unavailable AICHHOLZ, ROSEMARY Attending Unavailable Aichholz BANK ADVISOR-CRosemary Primary Care Provider [phone] Miguel Angel BANK ADVISOR-CRosemary Attending Provider Aichholz BANK ADVISOR, Rosemary Unavailable Aichkayz BANK ADVISOR, Rosemary Unavailable Unallocated , Jebs Provider Primary Care Provi bruno Simone Lovelace MD Primary Care Provider Rosemary Michelle Admitting Unavailable Rosemary Michelle Attending Unavailable Rosemary Michelle Primary Care Unavailable Natalie Miller Admitting Unavailable Natalie Miller Attending Unavailable Allergies Allergy ClassificationReported Allergen(s)Allergy TypeDate of OnsetReaction(s) Facility (19 sources)AmoxicillinDrug Tuafqyu97-86-6008zmdo, [facility] (15 sources)Sulfamethoxazole / TrimethoprimDrug Zyncajk72-96-7769ypyw, [facility] [employer] Other (5 sources)Sulfamethoxazole; Translations: [sulfamethoxazole]Drug Allergy 55-56-4402hllxJpprgtlkbOur [facility] (5 sources)Trimethoprim; Translations: [trimethoprim]Drug Bswsnpo93-13-9084hocdCincinnati [facility] (1 source)AmoxicillinDrug Kyngdud75-57-0540EtszuippxSelect Medical [facility] Repository Medications Current Medications MedicationDrug Class(es)DatesSig (Normalized)Sig (Original)ascorbic acid 113 mg / copper gluconate 0.4 mg / docosahexaenoic acid 87.5 mg / eicosapentaenoic acid 163 mg / lutein 2.5 mg / tocopherol acetate 100 unt / zeaxanthin 0.5 mg / zinc oxide 17.4 mg oralcapsule (15 sources)Vitamin CMultiple Vitamins-Minerals (PreserVision AREDS 2) capsule ActivePreserVision AREDS 2 - as directed Orally Activeascorbic acid 226 mg / cuprous oxide 0.8 mg / dl-alpha tocopheryl acetate 200 unt / lutein 5 mg / zinc oxide 34.8 mg oral capsule (4 sources)Vitamin CStart: 73-83-0077sfjEHTrqy hydrochloride 5 mg oral tablet (10 sources)Start: 66-10-0146dgnz 1 tablet by mouth twice dailyStart: 03-06-2025 End: 85-00-7464bkml 1 tablet by mouth oncebusPIRone (Buspar) 5 MG tablet Indications: Anxiety Take 1 tablet (5 mg) by mouth every 12 (twelve)hours if needed (anxiety) 60 tablet 1 03/06/2025 ActiveCalcium (1 source)Phosphate Binder, CalciumCalcium Activecalcium carbonate 1250 mg chewable tablet (18 sources)Start: 04-98-3448mylw 1 tablet by mouth once dailycalcium carbonate (Super Calcium) 1500 (600 Ca) MG tablet every 12 (twelve) hours Activeclobetasol propionate 0.5 mg/ml topical cream (20 sources)CorticosteroidStart: 02-39-9406Orlyc: 63-90-6911xjonqrdssl (Temovate) 0.05 % cream Indications: Lichen simplex chronicus Apply to affected areas, up to twice a day when flared, do not use one the face, groin, or underarms, 30 day supply 60 g 11 03/13/2025 Activeclobetasol (Temovate) 0.05 % cream Apply 1 Application topically every 12 (twelve) hours Activefluticasone propionate 0.05 mg/actuat metered dose nasal spray (9 sources)CorticosteroidStart: 12-08-2023 End: 99-95-3690tdxw 1 spray(s) nasal route once dailytake 2 spray(s) nasal route once dailyfluticasone (Flonase) 50 MCG/ACT nasal spray Administer 2 sprays into each nostril Daily Shake gently. Before first use, prime pump. After use, clean tip and replace cap. Activetake 1 spray(s) nasal route once dailyFlonase 50 MCG/ACT 1 spray in each nostril Nasally Once a day Not-Takingibuprofen 200 mg oral tablet (14 sources)Nonsteroidal Anti-inflammatory Drugibuprofen 200 MG tablet every 12 (twelve) hours Activelansoprazole 15 mg delayed release oral capsule (19 sources)Proton Pump InhibitorStart: 49-63-4830tnin 1 capsule by mouth once dailylatanoprost 0.05 mg/ml ophthalmic solution (2 sources)Prostaglandin AnalogStart: 48-22-9252cudf 1 drop(s) into the eye(s) once dailylisinopril 5 mg oral tablet (2 sources)Angiotensin Converting Enzyme InhibitorStart: 12-15-4786mtew 1 tablet by mouth once dailyloratadine 10 mg oral tablet (20 sources)Start: 12-08-2023 End: 17-67-1670slfv 1 tablet by mouth once dailynitrofurantoin, macrocrystals 25 mg / nitrofurantoin, monohydrate 75 mg oral capsule (1 source)Nitrofuran AntibacterialStart: 57-89-9582tfam 1 capsule by mouth twice daily at mealtime Completed/Discontinued Medications MedicationDrug Class(es)DatesSig (Normalized)Sig (Original)Ascorbic Acid / Beta Carotene / cuprous oxide / Lutein / sodium selenate / Vitamin E / Zinc Oxide (1 source)Vitamin COcuvite Not-TakingAspirin (1 source)Platelet Aggregation Inhibitor, Nonsteroidal Anti-inflammatory Drug Baby Aspirin Not-Takingazithromycin 250 mg oral tablet (7 sources)Macrolide AntimicrobialStart: 01-30-2025 End: 71-18-6102Kmwhzqoutito 250 mg tablet Discontinued 0 PO .COMPLEX 6 0 January 30, 2025 12:00am July 11, 2025 2:42pm For 250 mg dose pack: take 500 mg today (day 1), then 250 mg for 4 days (days 2-5) POStart: 79-43-5505wufeefaxbskk (Zithromax) 250 MG tablet Indications: Subacute frontal sinusitis 2 pills day #1, and then 1 pill day #2-#5 6 tablet 07/23/2024 Activecephalexin 250 mg oral capsule (1 source)Cephalosporin AntibacterialStart: 49-51-5437arba 1 capsule by mouth every six hoursCephalexin 250 MG 1 capsule Orally Four times a day for 10 day(s) Jun, Not-Takingclindamycin 300 mg oral capsule (1 source)Lincosamide AntibacterialStart: 20-27-1467Noywsjaocva HCl 300 MG 1 capsule Orally 7 for 7 days Jun, Not-Takingdoxycycline monohydrate 100 mg oral tablet (1 source)Tetracycline-class DrugStart: 22-09-0184onhm 1 tablet by mouth every twelve hoursDoxycycline Monohydrate 100 MG 1 tablet Orally every 12 hrs for 7 days Jun, Not-TakingMupirocin (1 source)RNA Synthetase Inhibitor AntibacterialStart: 67-68-2128Qsttlilkn 2 % 1 application to affected area Externally bid for 7 days Mar, Not-Taking Zy-Nj-Ki2-Dqf-Obp-Snwq-Lut-Kat (Ocuvite Adult 50 Plus) 250 mg (90 mg-160 mg) capsule (4 sources)Start: 12-08-2023 End: 29-70-9720ogzp 1 capsule by mouth once inzuxGk-Nf-Xl1-Btq-Zjy-Xpxy-Lut-Kat (Ocuvite Adult 50 Plus) 250 mg (90 mg-160 mg) capsule Discontinued 1CAP PO Daily December 08, 2023 1:00am July 28, 2025 10:44amStart: 31-94-6202dhlk 1 capsule by mouth once vmnscMm-Jg-Or4-Ouw-Wci-Ltyg-Lut-Kat (Ocuvite Adult 50 Plus) 250 mg (90 mg-160 mg) capsule Active 1 CAP PO Daily December 08, 2023 1:00am predniSONE 20 mg oral tablet (8 sources)Start: 12-08-2023 End: 80-48-6227ohky 2 tablets by mouth once dailyPrednisone 20 mg tablet Discontinued 40 MG PO Daily 6 3 0 July 28, 2025 6:21am July 28, 2025 10:33am Problems Active Problems Problem ClassificationProblemDateDocumented DateEpisodic/ChronicAnxiety disorders (17 sources)Anxiety; Translations: [Anxiety disorder, unspecified]Onset: 628738-96-0276ZjquxucKnvhcdcubl disorders (20 sources)Gastro-esophageal reflux disease without esophagitis; Translations: [Gastroesophageal reflux disease without esophagitis]Onset: 97-62-0568Fltdiee Essential hypertension (18 sources)Hypertensive disorder; Translations: [Essential (primary) hypertension]Onset: 084554-23-2161SvqymvwAfkulihxihclo symptoms and ill- defined conditions (18 sources)Incontinence; Translations: [Mixed incontinence]Onset: 12-13-2023 13-62-2963VkrrtdlQkghqxuxx of unspecified nature or uncertain behavior (17 sources)Neoplastic disease of uncertain behavior; Translations: [Neoplasm of uncertain behavior, unspecified]Onset: 098437-76-6021Svcrfkjc Osteoarthritis (4 sources)Osteoarthritis; Translations: [Unspecified osteoarthritis, unspecified site]15-62-6656VocafaeGplhqnjiiluu (20 sources)Senile osteoporosis; Translations: [Age-related osteoporosis without current pathological fracture]Onset: 510256-45-6881VbttmhzRqvom connective tissue disease (1 source)Pain in right footEpisodicOther connective tissue disease (1 source)Calcaneal spur, right footEpisodicOther female genital disorders (16 sources)Leukoplakia of vulva; Translations: [Circumscribed scleroderma] Onset: 954196-26-7807VdpszoknGwvuv inflammatory condition of skin (4 sources)Lichen; 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]71-53-7867Oqilaoji Other inflammatory condition of skin (2 sources)Lichen simplex chronicus; 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] 48-06-8229XiuojmguGscpt screening for suspected conditions (not mental disorders or infectious disease) (8 sources)Encounter for screening mammogram for malignant neoplasm of breast; Translations: [Patient encounter status]Onset: 07-46-1115RjainapkRpxnj upper respiratory disease (18 sources)Chronic rhinitis; Translations: [Chronic rhinitis]Onset: 12-13-2023 52-30-4091BavssdjYntuu upper respiratory disease (4 sources)Seasonal allergic rhinitis; Translations: [Other seasonal allergic rhinitis]76-43-6385SouzdlmGvjat upper respiratory infections (6 sources)Sinusitis; Translations: [Chronic sinusitis, unspecified]01-30-2025 ChronicOther upper respiratory infections (20 sources)Acute pansinusitis; Translations: [Acute pansinusitis, unspecified] Onset: 12-27-2023 Resolved: 375350-76-7274RueodoasKcwtahfa codes; unclassified (1 source)Family history of malignant neoplasm of trachea, bronchus and lung; Translations: [FAM HX MALIG NEOPLSM TRACH BRON LNG]Onset: 38-80-9887Jqmwmmio Retinal detachments; defects; vascular occlusion; and retinopathy (20 sources)Degenerative disorder of macula ; Translations: [Unspecified macular degeneration]Onset: 780449-62-0080ElvpucpTauqibqdzln; intervertebral disc disorders; other back problems (16 sources)Degeneration of cervical intervertebral disc; Translations: [Other cervical disc degeneration, unspecified cervical region]Onset: 12-13-2023 11-77-4653CpnmmteSviajoypjwu; intervertebral disc disorders; other back problems (4 sources)Neck pain; Translations: [Cervicalgia]40-95-3855RzrwsseoYnpxtxn and strains (20 sources)Strain of left trapezius muscle; Translations: [Strain of other muscles, fascia and tendons at shoulder and upper arm level, left arm, subsequent encounter]Onset: 12-05-2023 Resolved: 277005-41-5584Efffcphs Past or Other Problems Problem ClassificationProblemDateDocumented DateEpisodic/ChronicGenitourinary symptoms and ill-defined conditions (20 sources)Frequency of micturition; Translations: [Dysuria]Onset: 06-01-2022 30-34-3593WnyaatywZnqtrysmmwjyo and screening for infectious disease (15 sources)Needs influenza immunization; Translations: [Encounter for immunization]Onset: 560206-49-6556YjkkwvvuOlqm disorders (13 sources)Mood disordersOnset: Other injuries and conditions due to external causes (10 sources)Open wound; Translations: [Other injury of unspecified body region, initial encounter]Onset: 02-20-2025 Resolved: 368455-31-4309Occuirol Results Test NameValueInterpretationReference RangeFacilityBasophils Auto (Bld) [#/Vol] Ordered By: Rosemary Michelle on 63-28-4261Itmqejuug (Bld) [#/Vol]0.0 10 3/uL0.0-0.1 [facility] HospitalBasophils/100 WBC Auto (Bld)Ordered By: Rosemary Michelle on 87-34-0363Kcfccmcph/100 WBC (Bld)0.6 %0.2-2.0[facility] HospitalEosinophils/100 WBC Auto (Bld)Ordered By: Rosemary Michelle on 89-97-4653Ltahfpcegyx/100 WBC (Bld)2.1 %0.9-7.0[facility] Erythrocyte distribution width Auto (RBC) [Ratio]Ordered By: Rosemary Michelle on 64-68-0933Cpiqqntfhsl distribution width (RBC) [Ratio]12.3 %11.0-15.0[facility] HospitalGlobulin Calc (S) [Mass/Vol]Ordered By: Rosemary Michelle on 18-78-2877Skohajzx (S) [Mass/Vol]3.7 g/dLSelect Medical Trihealth Rehabilitation Hospital Glomerular filtration rate (GFR) estimation in non- AmericanOrdered By: Rosemary Michelle on 72-81-5209KXE/1.73 sq M.predicted among non-blacks MDRD (S/P/Bld) [Vol rate/Area]59 mL/min/{1.73_m2}Low>=60 mL/min/1.73m 2FOhioHealth Grant Medical CenterHematocrit Auto (Bld) [Volume fraction]Ordered By: Rosemary Michelle on 34-41-8596Qhrfmlajod (Bld) [Volume fraction]40.2 %36.0-48.0[facility] HospitalHemoglobin [Mass/volume] in BloodOrdered By: Rosemary Michelle on 12-42-1198Xykiqxxgpl (Bld) [Mass/Vol]13.2 g/dL12.0-16.0[facility] HospitalLaboratory - Chemistry and Chemistry - challengeOrdered By: Rosemary Michelle on 08-94-9640Dbqblkl [Mass/Vol]3.5 g/dL3.4-5.0[facility] HospitalALP [Catalytic activity/Vol]78 U/C70-628IclblifjmSelect Medical Trihealth Rehabilitation HospitalALT [Catalytic activity/Vol]48 U/Z87-91UspiyueowSelect Medical Trihealth Rehabilitation HospitalAST [Catalytic activity/Vol]33 U/H57-46RrpwciglzSelect Medical Trihealth Rehabilitation HospitalBilirubin [Mass/Vol]0.4 mg/dL0.2-1.0[facility] Calcium [Mass/Vol]9.8 mg/dL8.5-10.1FOhioHealth Grant Medical CenterChloride [Moles/Vol]99 mmol/J99-677DxxnxgfrfSelect Medical Trihealth Rehabilitation HospitalCO2 [Moles/Vol]31.5 mmol/L21.0-32.0[facility] HospitalCreatinine [Mass/Vol]0.91 mg/dL 0.55-1.02[facility] HospitalGFR/1.73 sq M.predicted MDRD (S/P/Bld) [Vol rate/Area]mL/min/{1.73_m2}>=60 mL/min/1.73m 2FOhioHealth Grant Medical CenterGlucose [Mass/Vol]103 mg/rO22-281DubefaavbSelect Medical Trihealth Rehabilitation Hospital Potassium [Moles/Vol]4.3 mmol/L3.5-5.1FOhioHealth Grant Medical CenterProtein [Mass/Vol]7.2 g/dL6.4-8.2FOhioHealth O'Bleness Hospitalodium [Moles/Vol]139 mmol/G632-053GauqxrkubSelect Medical Trihealth Rehabilitation HospitalUrea nitrogen [Mass/Vol]21.0 mg/dL High7.0-18.0[facility] HospitalUrea nitrogen/Creatinine [Mass ratio]23.1 mg/mgSelect Medical Trihealth Rehabilitation HospitalBilirubin Ql (U)Negative NEGATIVESelect Medical Trihealth Rehabilitation HospitalGlucose (U) [Mass/Vol]NegativeNEGATIVE [facility] HospitalKetones Ql (U)NegativeNEGKettering Health PreblepH (U)5.5 [pH]5.0-9.0[facility] Specific gravity (U) [Rel density]1.0101.005-1.025[facility] HospitalUrobilinogen Qn (U)0.2 {Sagrario'U}/dL0.2-1.0[facility] HospitalLaboratory - Hematology and Cell countsOrdered By: Rosemary Michelle on 42-43-5047Icvnljwy granulocytes/100 WBC (Bld)0.3 %0.0-0.5FOhioHealth Grant Medical CenterLaboratory - Specimen informationOrdered By: Rosemary Michelle on 00-96-6788Oatzgkfmlh (U)CLEARCLEARFOhioHealth Grant Medical CenterColor (U)LT. YELLOWYELLOWSelect Medical Trihealth Rehabilitation HospitalLaboratory - UrinalysisOrdered By: Rosemary Michelle on 52-79-0708Agpzjvqgq esterase Test strip Ql (U)TRACEAbnormal NEGATIVESelect Medical Trihealth Rehabilitation HospitalMucus Ql (Urine sed)NONE SEENNONE SEEN [facility] HospitalNitrite Ql (U)NegativeNEGATIVESelect Medical Trihealth Rehabilitation HospitalProtein Ql (U)NegativeNEG/TRACESelect Medical Trihealth Rehabilitation HospitalLeukocytes [#/volume] corrected for nucleated erythrocytes in Blood by Automated counOrdered By: Rosemary Michelle on 17-64-2883OFZ corrected for nucl RBC Auto (Bld) [#/Vol]6.7 10 3/uL4.0-11.0[facility] Lymphocytes Auto (Bld) [#/Vol]Ordered By: Rosemary Michelle on 82-72-2963Khhgpjjgkht (Bld) [#/Vol]1.2 10 3/uL1.2-3.8[facility] HospitalLymphocytes/100 WBC Auto (Bld)Ordered By: Rosemary Michelle on 95-61-9593Scduafqffxf/100 WBC (Bld) 17.2 %Low20.5-60.0[facility] HospitalMCH Auto (RBC) [Entitic mass] Ordered By: Rosemary Michelle on 22-73-2116FKX (RBC) [Entitic mass]30.1 pg26.7-34.0 [facility] HospitalMCHC Auto (RBC) [Mass/Vol]Ordered By: Rosemary Michelle on 74-23-2597LJAK (RBC) [Mass/Vol]32.8 g/dL29.9-35.2FOhioHealth Grant Medical CenterMCV Auto (RBC) [Entitic vol]Ordered By: Rosemary Michelle on 82-70-9722GDI (RBC) [Entitic vol]91.6 fL81.0-99.0[facility] HospitalMonocytes Auto (Bld) [#/Vol]Ordered By: Rosemary Mihcelle on 07-28-2025 Monocytes (Bld) [#/Vol]0.5 10 3/uL0.3-0.8[facility] Monocytes/100 WBC Auto (Bld)Ordered By: Rosemary Michelle on 21-15-7457Vzqxuyqun/100 WBC (Bld)8.1 %1.7-12.0[facility] HospitalNeutrophils Auto (Bld) [#/Vol]Ordered By: Rosemary Michelle on 33-64-5073Djbmboswaxx (Bld) [#/Vol]4.8 10 3/uL1.4-6.5FOhioHealth Grant Medical CenterNeutrophils/100 WBC Auto (Bld) Ordered By: Rosemary Michelle on 24-60-8545Txcyoxnqdsp/100 WBC (Bld)71.7 %43.0-75.0 [facility] HospitalNo Panel InformationOrdered By: Rosemary Michelle on 802283-Gggtyym Vitamin D Total43.8 ng/mLSelect Medical Trihealth Rehabilitation HospitalComment on above:<20 ng/mL Vit D gurqhtjka75-<30 ng/mL Vit D lodrigyjaenk14-201 ng/mL Vit D sufficient>100 ng/mL Potential Toxicity Eosinophils # (Auto)0.1 10 3/uL0.0-0.7FOhioHealth Grant Medical CenterImmature Granulocyte # (Auto)0.02 10 3/uL0.00-0.03[facility] HospitalUrine BacteriaNONE SEEN #/HPFNONE [facility] HospitalUrine Occult BloodNegativeNEGATIVESelect Medical Trihealth Rehabilitation HospitalUrine Other CastsNONE SEEN #/LPFNONE [facility] HospitalUrine Other CrystalsNone Seen #/HPFNone [facility] HospitalUrine RBC0-2 #/HPF0-2FOhioHealth Grant Medical CenterUrine Squamous Epithelial CellsRARE #/LPFNONE/RARE [facility] HospitalUrine UIX95-86 #/HPFAbnormalNONE [facility] HospitalPlatelet mean volume Auto (Bld) [Entitic vol]Ordered By: Rosemary Michelle on 51-68-2155Dtbhnfln mean volume (Bld) [Entitic vol]9.9 fL 9.5-13.5FOhioHealth Grant Medical CenterPlatelets Auto (Bld) [#/Vol]Ordered By: Rosemary Michelle on 80-29-9261Ggmalitri (Bld) [#/Vol]308 10 3/iD005-430NuevewrpzSelect Medical Trihealth Rehabilitation HospitalRBC Auto (Bld) [#/Vol]Ordered By: Rosemary Michelle on 47-29-6320RAF (Bld) [#/Vol]4.39 10 6/uL4.20-5.40[facility] Hospitalerum or plasma albumin/globulin mass ratioOrdered By: Rosemary Michelle on 95-58-7401Ukaoinh/Globulin [Mass ratio]0.9 {ratio}[facility] Hospitalerum or plasma anion gap determinationOrdered By: Rosemary Michelle on 07-52-9501Nktkh gap [Moles/Vol]12.8 mmol/LFOhioHealth Grant Medical CenterUrine Cultureon 98-41-7994Ihysjuae identified Cx Nom (U)<9,000 colonies/ml mixed bacterial skin contaminants 2 Days PERFORMED BY: [place] [address] PATHOLOGIST PARBOILER JOSEPH QUESADA M.D.[facility] Physician GroupComment on above: Performed By: #### CUU #### [place] [address] USANo Panel Informationon 89-56-7122Pfuv of biopsy: tangential Informed consent: discussed and [...] taken yes Amount of lidocaine used: 1.0 [facility] HealthUrine Cultureon 28-28-4158Yqouhuoq identified Cx Nom (U)<9,000 colonies/ml mixed bacterial skin contaminants 2 Days PERFORMED BY: [place] [address] PATHOLOGIST PARBOILER KEN SEPULVEDA M.D.[facility] Physician GroupComment on above: Performed By: #### CUU #### [address] [place] [address] [facility] UA (CLEAN/CATCH) MICROSCOPIC IF INDICATEon 07-26-2024 BILIRUBIN URINENegativeNEGATIVENOMS HealthcareBLOOD URINETRACE-INEGATIVENOMS HealthcareClarity (U)CLEARCLEARNOMS HealthcareColor (U)LT. YELLOWYELLOWNOMS HealthcareGLUCOSE URINE UANegativeNEGATIVE mg/dLNOMS HealthcareInterpretation and review of laboratory resultsAbnormalNOMS HealthcareKetones Ql (U)Negative NEGATIVE mg/dLNOMS HealthcareLeukocyte esterase Test strip Ql (U)TRACEAbnormal NEGATIVENOMS HealthcareNITRITE URINENegativeNEGATIVENOMS HealthcarepH (U)6.5 [pH]5.0 - 9.0NOMS HealthcarePROTEIN URINENegativeNEG/TRACE mg/dLNOMS Healthcare SPECIFIC GRAVITY URINE1.0201.005 - 1.025NOMS HealthcareURINE MICROSCOPIC INDICATEDYESNOMS HealthcareUROBILINOGEN URINE0.2 EU/dL0.2 - 1.0 EU/dLNOMS HealthcareCLINISYNCNOMS HealthcareMM TOMOSYNTHESIS SCREENING BIon 92-94-6693[place], [place] [address] Mammography Report Signed Patient: MELIDA LYMAN MR#: [id number] : 1940 Acct:[id number] Age/Sex: 84 / F ADM Date: 07/23/24 Loc: MAMMO Attending Dr: Rosemary Michelle NP Ordering Physician: Rosemary Michelle NP Results: Date of Service: 07/23/24 Follow Up: Procedure(s): MM tomosynthesis screening BI Accession Number(s): [id number] cc: Rosemary Michelle NP; Simone Lovelace M.D. Patient Name: MELIDA LYMAN MR#: [id number] : 1940 Exam Date: 07/23/2024 Ordering Doctor: [...] lung cancer at age 58. LOCATION: [facility] BREAST COMPOSITION: The breasts are [...] BIOPSIED. Dictated by: Dieter Cannon MD on 07/23/2024 at 11:11 Approved by: Dieter Cannon MD on 07/23/2024 at 11:12 Dictated By: Dieter Cannon M.D. Signed By: 07/23/24 1114 DD/ 1112 TD/TT: Sharepoint Engineer:TBHRadiology, Radiologist, - 07/23/2024 [place] [address] Mammography Report Signed Patient: MELIDA LYMAN MR#: [id number] : 1940 Acct:[id number] Age/Sex: 84 / F ADM Date: 07/23/24 Loc: MAMMO Attending Dr: Rosemary Michelle NP Ordering Physician: Rosemary Michelle NP Results: Date of Service: 07/23/24 Follow Up: Procedure(s): MM tomosynthesis screening BI Accession Number(s): [id number] cc: Rosemary Michelle NP; Simone Lovelace M.D. Patient Name: MELIDA LYMAN MR#: [id number] : 1940 Exam Date: 07/23/2024 Ordering Doctor: [...] lung cancer at age 58. LOCATION: [facility] BREAST COMPOSITION: The breasts are [...] BIOPSIED. Dictated by: Dieter Cannon MD on 07/23/2024 at 11:11 Approved by: Dieter Cannon MD on 07/23/2024 at 11:12 Dictated By: Dieter Cannon M.D. Signed By: 07/23/24 1114 DD/ 1112 TD/TT: Sharepoint Engineer: [facility] HospitalRadiology Study observation (narrative)[facility] TOMOSYNTHESIS SCREENING BIOrdered By: Radiologist Radiology on 53-60-8840QRYZ [employer] Work Phone: XR foot RT min 3V*on 44-76-2133CX foot RT min 3V* [facility] [employer] Other XR foot RT min 3V*[facility] [employer] Other XR foot RT min 3V*[address] [facility] [employer] Other XR foot RT min 3V*GABINO Henriquez [address] Other XR foot RT min 3V*XRay ReportCypress [employer] Other XR foot RT min 3V*[facility] [employer] Other XR foot RT min 3V*Patient: Melida Lyman MR#: [id number] [employer] Other XR foot RT min 3V*: 1940 Acct:[id number] [employer] Other XR foot RT min 3V*Age/Sex: 83 / F ADM Date: 04/05/23 [place] [employer] Other XR foot RT min 3V*Loc: XDUCLY Room: Type: [facility] [employer] Other XR foot RT min 3V*Attending Dr: Brenda [facility]ESPemiscot [facility] [employer] Other XR foot RT min 3V*Copies to: MYRTLE Larson [employer] Other XR foot RT min 3V*Ordering Provider: SEGUN [facility]onsain[facility] [employer] Other XR foot RT min 3V*Date of Service: 04/05/23[place] [employer] Other XR foot RT min 3V* XR/XR foot RT min 3V*: Pain of right heelCypress [employer] Other XR foot RT min 3V*3 views right foot plain [employer] Other XR foot RT min 3V*COMPARISON:CITTIOMetaNotes [employer] Other XR foot RT min 3V*HISTORY: Right foot pain for 2 days [facility] [employer] Other XR foot RT min 3V*ACUTE FINDINGS: [employer] Other XR foot RT min 3V*DEGENERATIVE CHANGE: Mild degeneration with calcaneal spurring and likely incidental accessoryCypress [employer] Other XR foot RT min 3V*navicularMetaNotes [employer] Other XR foot RT min 3V*SOFT TISSUE FINDINGS: Unremarkable [facility] [employer] Other XR foot RT min 3V*JOINT EFFUSION: [facility] [employer] Other XR foot RT min 3V*POSTOP CHANGES: [facility] [employer] Other XR foot RT min 3V*[facility]ALIZATION: [facility] [employer] Other XR foot RT min 3V* XR/XR foot RT min 3V*[facility] [employer] Other XR foot RT min 3V*IMPRESSION: Degenerative change. No acute findings.[facility] [employer] Other XR foot RT min 3V*Impression dictated by: Jose Macias M.D.04/05/2023 2:22 [facility] [employer] Other XR foot RT min 3V*Dictation Location: [id number] [employer] Other XR foot RT min 3V*Transcribed By: [facility] 04/05/[address] [place] [address] [employer] Other XR foot RT min 3V*Dictated By: Jose Macias DO 04/05/[address] [place] [address] [employer] Other XR foot RT min 3V*Signed By:[employer] Other XR foot RT min 3V*04/05/[address] [place] [address] [employer] Other MG MAMM SCREEN 3D BROOK CADon [id number] MAMM SCREEN 3D BROOK CADPatient: MELIDA LYMAN Exam Date: 06/03/2022 : 1940 Gender:F Ordering : MUSA ROSEMARYLeonel MICHELLE CNP Admission #: [id number] Family : Order #: [id number] CLICK HERE TO VIEW EXAM RADIOLOGY REPORT [...] lung cancer at age 58. LOCATION: [facility] BREAST COMPOSITION: Heterogeneously dense,which may obscure small [...] by: Dieter Cannon MD on 06/03/2022 at 13:40No[facility] AUTO DIFFon [id number] #0.0 103/ulNormal0.0-0.1Barn[facility]ville HospitalComment on above:Performed By: #### CBC #### [facility] [address] [place] [address] Dr. Kendall RachelBasophils/100 WBC (Bld)1.0 %Normal0.2-2.0[facility] Comment on above:Performed By: #### CBC #### [facility] [address] [place] [address] Dr. Kendall Lott #0.1 103/ulNormal0.0-0.7ThAvita Health SystemComment on above: Performed By: #### CBC #### [facility] [address] [address] [address] Kendall Boyleosinophils/100 WBC (Bld)2.6 %Normal0.9-7.0[facility] Comment on above:Performed By: #### CBC #### [facility] [address] [place] [address] Dr. Kendall Boylerythrocyte distribution width (RBC) [Ratio]12.9 %Momjfs47.0-15.0 The [facility] CenterComment on above:Performed By: #### CBC #### [facility] [address] [place] [address] Dr. Kendall RachelHematocrit (Bld) [Volume fraction]40.3 %Aexfbn19.0-48.0The [facility] CenterComment on above:Performed By: #### CBC #### [facility] [address] [place] [address] Dr. Kendall RachelHemoglobin (Bld) [Mass/Vol]13.1 g/tZHbaaym63.0-16.0The [facility] CenterComment on above:Performed By: #### CBC #### [facility] [address] [place] [address] Dr. Kendall Flores #0.01 10e3/ulNormal0.00-0.03The [facility] CenterComment on above:Performed By: #### CBC #### [facility] [address] [place] [address] Dr. Kendall Flores %0.2 %Normal0.0-0.5The [facility] CenterComment on above: Performed By: #### CBC #### [facility] [address] [place] [address] Dr. Kendall Schilling #1.0 103/ulCritically low1.2-3.8The [facility] Comment on above:Performed By: #### CBC #### [facility] [address] [place] [address] Dr. Kendall Guerrahocytes/100 WBC (Bld)23.9 %Hyfwvg21.5-60.0The [facility] CenterComment on above:Performed By: #### CBC #### [facility] [address] [place] [address] Dr. Kendall RoyalUAL DIFF REQNONormalThe [facility] CenterComment on above: Performed By: #### CBC #### [facility] [address] [place] [address] Dr. Kendall Quiroz (RBC) [Entitic mass]29.8 qpAgeszj45.7-34.0The [facility] CenterComment on above:Performed By: #### CBC #### [facility] [address] [place] [address] Dr. Kendall Dumont (RBC) [Mass/Vol]32.5 g/cILktbnq52.9-35.2The [facility] CenterComment on above:Performed By: #### CBC #### [facility] [address] [place] [address] Dr. Kendall Dumont (RBC) [Entitic vol]91.8 xNDjeksd28.0-99.0The [facility] CenterComment on above:Performed By: #### CBC #### [facility] [address] [place] [address] Dr. Kendall Chen #0.4 103/ulNormal0.3-0.8The [facility] CenterComment on above:Performed By: #### CBC #### [facility] [address] [place] [address] Dr. Kendall Hugginsocytes/100 WBC (Bld)8.6 %Normal1.7-12.0The [facility] Comment on above:Performed By: #### CBC #### [facility] [address] [place] [address] Dr. Kendall Pretty #2.7 103/ulNormal1.4-6.5The [facility] CenterComment on above:Performed By: #### CBC #### [facility] [address] [place] [address] Dr. Kendall Saucedoophils/100 WBC (Bld)63.7 %Tcfvzc89.0-75.0The [facility] CenterComment on above:Performed By: #### CBC #### [facility] [address] [place] [address] Dr. Kendall Byrnelet mean volume (Bld) [Entitic vol]10.9 fLNormal9.5-13.5The [facility] CenterComment on above:Performed By: #### CBC #### [facility] [address] [place] [address] Dr. Kendall RachelPLT300 103/ovVwdscn694-363Isc [facility] CenterComment on above: Performed By: #### CBC #### [facility] [address] [place] [address] Dr. Kendall RachelRBC4.39 106/ulNormal4.20-5.40The [facility] CenterComment on above:Performed By: #### CBC #### [facility] [address] [place] [address] Dr. Kendall RachelWBC4.2 103/ulNormal4.0-11.0The [facility] CenterComment on above: Performed By: #### CBC #### [facility] [address] [place] [address] Dr. Kendall Garcia 14(COMP METB)on 92-62-6456Kvmmnxv [Mass/Vol]3.6 g/dLNormal 3.4-5.0The [facility] CenterComment on above:Performed By: #### CMP #### [facility] [address] [place] [address] Dr. Kendall RachelAlbumin/Globulin [Mass ratio]1.1 {ratio}NormalThe [facility] Glenbeighment on above:Performed By: #### CMP #### [facility] [address] [place] [address] Dr. Kendall Duffy [Catalytic activity/Vol]74 U/EBelosx10-265Hpb [facility] Glen[facility]ighment on above:Performed By: #### CMP #### [facility] [address] [place] [address] Dr. Kendall Rivas [Catalytic activity/Vol]33 U/AXlpulo63-98Qbv [facility]ighment on above:Performed By: #### CMP #### [facility] [address] [place] [address] Dr. Kendall Smith gap [Moles/Vol]10.3 mmol/LNormalThe [facility] on above:Performed By: #### CMP #### [facility] [address] [place] [address] Dr. Yilan ChangAST [Catalytic activity/Vol]20 U/XNwggbx04-38Vln [facility] CenterComment on above:Performed By: #### CMP #### [facility] [address] [place] [address] Dr. Kendall RachelBilirubin [Mass/Vol]0.4 mg/dLNormal0.2-1.0[facility] Comment on above:Performed By: #### CMP #### [facility] [address] [place] [address] Dr. Kendall RachelCalcium [Mass/Vol]9.3 mg/dLNormal8.5-10.1The [facility] Comment on above:Performed By: #### CMP #### [facility] [address] [place] [address] Dr. Kendall RachelChloride [Moles/Vol]103 mmol/EKhwnvn70-398Cqf [facility] Comment on above:Performed By: #### CMP #### [facility] [address] [place] [address] Dr. Kendall RachelCO2 [Moles/Vol]30.8 mmol/UAjxwkx95.0-32.0The [facility] Comment on above:Performed By: #### CMP #### [facility] [address] [place] [address] Dr. Kendall RachelCreatinine [Mass/Vol]0.87 mg/dLNormal0.55-1.02The [facility] CenterComment on above:Performed By: #### CMP #### [facility] [address] [place] [address] Dr. Kendall BoyleGFR-AF BURKINAN>60Normal>=60The [facility] CenterComment on above:Performed By: #### CMP #### [facility] [address] [place] [address] Dr. Kendall BoyleGFR-NON AF BURKINAN>60Normal>=60The [facility] CenterComment on above:Performed By: #### CMP #### [facility] [address] [place] [address] Dr. Kendall RachelGlobulin (S) [Mass/Vol]3.4 g/dLNormalThe Ambar HospitalComment on above:Performed By: #### CMP #### [facility] [address] [address] [address] Kendall RachelGlucose [Mass/Vol]100 mg/wEZrnlbs17-431XwzBarnesville Hospital Comment on above:Performed By: #### CMP #### [facility] [address] [address] [address] Kendall RachelPotassium [Moles/Vol]4.1 mmol/LNormal3.5-5.1[facility] Comment on above:Performed By: #### CMP #### [facility] [address] [address] [address] Kendall RachelProtein [Mass/Vol]7.0 g/dLNormal6.4-8.2[facility] Comment on above:Performed By: #### CMP #### [facility] [address] [address] [address] Kendall Cmdium [Moles/Vol]140 mmol/MIhbemf994-700BatBarnesville Hospital Comment on above:Performed By: #### CMP #### [facility] [address] [address] [address] Kendall RachelUrea nitrogen [Mass/Vol]23.0 mg/dLCritically high7.0-18.0[facility]ville HospitalComment on above:Performed By: #### CMP #### [facility] [address] [address] [address] Kendall Ibrahim nitrogen/Creatinine [Mass ratio]26.4 mg/mgNoCorey HospitalComment on above:Performed By: #### CMP #### [facility] [address] [address] [address] Kendall Shin RANDOM W/MICROSCOPICon 90-27-8269KIHFBDIBYLFD SEENrmalNONE SEENBarnesville HospitalComment on above:Performed By: #### UAMIC #### [facility] [address] [address] [address] Kendall RachelBilirubin Ql (U)NegativeNormalNEGATIVEBarnesville Hospital Comment on above:Performed By: #### UAMIC #### [facility] [address] [address] [address] Kendall RachelCASTNONE SEENNormalNONE SEENBarnesville HospitalComment on above:Performed By: #### UAMIC #### [facility] [address] [address] [address] Kendall Rosalesarity (U)CLEARNormalCLEARBarnesville HospitalComment on above: Performed By: #### UAMIC #### [facility] [address] [address] [address] Kendall Jaimeslor (U)YELLOWNormalYELLOWBarnesville HospitalComment on above: Performed By: #### UAMIC #### [facility] [address] [place] [address] Dr. Kendall RachelCrystals LM Nom (Urine sed)NONE SEENNormalNONE SEENThe [facility] CenterComment on above:Performed By: #### UAMIC #### [facility] [address] [address] [address] Argueta ChangEpithelial cells LM Ql (Urine sed)RARENormalNONE SEEN /RAREBarnesville HospitalComment on above:Performed By: #### UAMIC #### [facility] [address] [address] [address] Kendall RachelGlucose Ql (U)NegativeNormalNEGATIVEBarnesville HospitalComment on above:Performed By: #### UAMIC #### [facility] [address] [address] [address] Kendall RachelHemoglobin Ql (U)NegativeNormalNEGATIVEBarnesville Hospital Comment on above:Performed By: #### UAMIC #### [facility] [address] [address] [address] Kendall RachelKetones Ql (U)NegativeNormalNEGATIVEBarnesville HospitalComment on above:Performed By: #### UAMIC #### [facility] [address] [address] [address] Kendall RachelLEUKOCYTESTRACEAbnormalNEGATIVEThe [facility] CenterComment on above:Performed By: #### UAMIC #### [facility] [address] [address] [address] Kendall MongeCOUSTRACEAbnormalNONE SEENThe [facility] CenterComment on above:Performed By: #### UAMIC #### [facility] [address] [place] [address] Dr. Kendall Maurertrite Ql (U)NegativeNormalNEGATIVEThe [facility] CenterComment on above:Performed By: #### UAMIC #### [facility] [address] [place] [address] Dr. Kendall RachelpH (U)7.0 [pH]Normal5-9The [facility] CenterComment on above: Performed By: #### UAMIC #### [facility] [address] [place] [address] Dr. Kendall WheelerCtulmGCT8-3Yjbjvm4-9Xsl [facility] CenterComment on above:Performed By: #### UAMIC #### [facility] [address] [place] [address] Dr. Kendall RachelSPEC GRAVITY1.767Wkjlhi4.005-<=1.025The [facility] CenterComment on above:Performed By: #### UAMIC #### [facility] [address] [place] [address] Dr. Kendall Shin PROTEINNegativeNormalNEGATIVE/ TRACEThe [facility] Comment on above:Performed By: #### UAMIC #### [facility] [address] [place] [address] Dr. Kendall Trangen Qn (U)0.2 {Sagrario'U}/dLNormal0.2 - 1.0The [facility] CenterComment on above:Performed By: #### UAMIC #### [facility] [address] [place] [address] Dr. Kendall RachelWBC0-2AbnormalNONE SEENThe [facility] CenterComment on above: Performed By: #### UAMIC #### [facility] [address] [place] [address] Dr. Kendall Rachel Vital Signs Date TimeVital SignValuePerforming YwsaromjeQqtnogcp42-87-2025 10:15-0400Body .32 cmLisa Aichholz BANK ADVISOR-C Work Phone: [phone]10-27-2025 10:15-0400 Body mass index (BMI) [Ratio]24.6 kg/m2Lisa Aichholz BANK ADVISOR-C Work Phone: [phone]10-27-2025 10:15-0400 Body hkmuoomfvrf11.1 [degF]Rosemary Aichholz BANK ADVISOR-C Work Phone: [phone]10-27-2025 10:15-0400 Body rqvbyp43.52 kgLisa Aichholz BANK ADVISOR-C Work Phone: [phone] [place], [place] [address]10-27-2025 10:15-0400 Diastolic blood hveoccjc67 mm[Hg]Rosemary Aichholz BANK ADVISOR-C Work Phone: [phone]10-27-2025 10:15-0400 Heart rate83 /minLisa Aichholz BANK ADVISOR-C Work Phone: [phone]10-27-2025 10:15-0400 Respiratory rate18 /minLisa Aichholz BANK ADVISOR-C Work Phone: [phone] [place], [place] [address]10-27-2025 10:15-0400 SaO2% (BldA) [Mass fraction]98 %Rosemary Aichholz BANK ADVISOR-C Work Phone: [phone]10-27-2025 10:15-0400 Systolic blood jiqiomva432 mm[Hg]Rosemary Aichholz BANK ADVISOR-C Work Phone: [phone]07-23-2025 10:03-0400 Diastolic blood ucfblcad89 mm[Hg]Rosemary Aichholz BANK ADVISOR Work Phone: [facility] HospitalShyfgtkdmg76-71-5124 10:03-0400Systolic blood jtgfsbuf121 mm[Hg]Rosemary Michelle BANK ADVISOR Work Phone: [facility] HospitalUzuvekbkex15-37-6347 09:31-0400Body mass index (BMI) [Ratio]25.14 kg/m2Adenikesa Luluholz BANK ADVISOR Work Phone: [facility] HospitalLhuydaaqvb30-04-0450 09:31-0400Body temperature 98.1 [degF]Rosemary Gutierrezz BANK ADVISOR Work Phone: [facility] HospitalNutrtfvdtw37-99-2919 09:31-0400Body jiqsmr37.62 kgLisa Luluholz BANK ADVISOR Work Phone: [facility] HospitalWthrqhmktu53-18-8270 09:31-0400Heart rate61 /min Rosemaryleonel Gutierrezz BANK ADVISOR Work Phone: [facility] HospitalZdqxcsubjg93-33-5061 09:31-0400Respiratory rate18 /minLisa Gutierrezz BANK ADVISOR Work Phone: [facility] HospitalTksnxxoioy37-73-6251 09:31-8550SrD8% (BldA) [Mass fraction]97 %Rosemary Gutierrezz BANK ADVISOR Work Phone: [facility] HospitalJlomkcjgnj27-55-5920 11:34-0400Body mass index (BMI) [Ratio]24.5 kg/m2Rosemary Gutierrezz BANK ADVISOR Work Phone: [facility] HospitalCirsazoyba27-03-3405 11:34-0400Body temperature 98.29 [degF]Rosemary Gutierrezz BANK ADVISOR Work Phone: [facility] HospitalCjtuyafuzk16-20-8401 11:34-0400Body thzucz71.25 kgLisa Luluholz BANK ADVISOR Work Phone: [facility] HospitalXseovqtlnr83-51-1161 11:34-0400Diastolic blood icwlecyu54 mm[Hg]Rosemary Lawsonholz BANK ADVISOR Work Phone: [facility] HospitalTsrrulhcla94-30-5383 11:34-0400Heart rate67 /min Rosemary Mattz BANK ADVISOR Work Phone: [facility] HospitalOnfdkbcykg26-18-2591 11:34-0400Respiratory rate20 /minRosemary Lawsonaaron BANK ADVISOR Work Phone: [facility] HospitalMghezjafgr71-16-2001 11:34-8560DuP5% (BldA) [Mass fraction]98 %Rosemary Lawsonaaron BANK ADVISOR Work Phone: [facility] HospitalUjeidvgfsf54-30-1440 11:34-0400Systolic blood scsegcgy048 mm[Hg]Rosemary Lawsonaaron BANK ADVISOR Work Phone: [facility] HospitalIvkfjriswh89-09-6682 11:54-0400Diastolic blood ioppzvdl77 mm[Hg][facility]05-01-2025 11:54-0400Systolic blood vixeqkit242 mm[Hg][facility]05-01-2025 11:05-0400 Body .32 cmSelect [facility]05-01-2025 11:05-0400Body mass index (BMI) [Ratio]24.4 kg/k2QhbbmdcznSelect Medical [facility]05-01-2025 11:05-0400Body pjjcjdnafmz91.6 [degF][facility]05-01-2025 11:05-0400Body paukjb11.07 kgSelect [facility]05-01-2025 11:05-0400Heart rate72 /[facility]05-01-2025 11:05-0400Respiratory rate18 /[facility]05-01-2025 11:05-1540OlB4% (BldA) [Mass fraction]97 %[facility] 07-23-2024 10:14-0400Body wqggfu390.1 Fransisca Miguel Angel BANK ADVISOR Work Phone: [facility] HospitalHlfznglbcw25-90-0230 10:14-0400Body mass index (BMI) [Ratio]24.37 kg/m2Rosemary Miguel Angel BANK ADVISOR Work Phone: [facility] HospitalXgljeejbwz63-12-4915 10:14-0400Body temperature 97.11 [degF]Rosemary Miguel Angel BANK ADVISOR Work Phone: [facility] HospitalCsessehcdx32-55-7400 10:14Body vicijp01.98 kgRosemary Michelle BANK ADVISOR Work Phone: [facility] HospitalZeghyiqjon53-52-1498 10:14Diastolic blood fmqagesm90 mm[Hg]Rosemary Michelle BANK ADVISOR Work Phone: [facility] HospitalKdadnwkmqr36-48-8531 10:14Heart rate76 /min Rosemary Michelle BANK ADVISOR Work Phone: [facility] HospitalHsoxycnygx88-65-7681 10:Respiratory rate18 /minRosemary Michelle BANK ADVISOR Work Phone: [facility] HospitalDfgyllilxn51-57-0733 10:148990RlQ3% (BldA) [Mass fraction]97 %Rosemary Michelle BANK ADVISOR Work Phone: [facility] HospitalTyiwtwytyc92-19-2286 10:14Systolic blood thzavzzj448 mm[Hg]Rosemary Michelle BANK ADVISOR Work Phone: noBarnes-Jewish West [facility] HospitalCunjnxlpcp03-61-3432 13:35-0400Body ewqrov397.78 Kevan Majano Other [employer] Other 07-05-2023 13:35-0400Body mass index (BMI) [Ratio] 24.67 kg/f1PxusxbBrenda Majano Other [employer] Other 07-05-2023 13:35-0400Body .6 [degF]Brenda Majano Other [employer] Other 07-05-2023 13:35-0400Body jvhgip23.71 kgBrenda Majano Other [facility] SystemTagasauris Other 07-05-2023 13:35-0400Diastolic blood mm[Hg] Brenda Majano Other [place] [employer] Other 07-05-2023 13:35-0400Respiratory rate18 /minBrenda Majano Other [facility] [employer] Other 07-05-2023 13:35-7367OoT8% (BldA) [Mass fraction]98 % Brenda Majano Other [facility] [employer] Other 07-05-2023 13:35-0400Systolic blood mm[Hg] Brenda Majano Other [facility] [employer] Other Encounters Encounter DateEncounter TypeCare ProviderFacilityStart: 07-28-2025 End: 21-34-9642nqzejbdcuoJdyl J Aichholz BANK ADVISOR-C Work Phone: -[facility] HospStart: 07-28-2025 End: 26-59-1501Lujoicuw ReferredLisa Cecilia Michelle BANK ADVISOR-C-[facility] Start: 07-28-2025 End: 82-52-4281ktkopeoevxLsmf Cecilia Garciahholz BANK ADVISOR-C Work Phone: -[facility] [place]deStart: 07-28-2025 End: 15-12-6204Lyheysd encounter procedureLisa Cecilia Michelle BANK ADVISOR-C-[facility] [place] Work Phone: Start: 33-81-0513Yyzwxud encounter procedureLisa Mattz BANK ADVISOR-C Work Phone: [facility] Hospitaltart: 04-23-2025 End: 02-15-5862Rthoan flowsheetLisa Josehholz BANK ADVISOR Work Phone: [facility] FMStart: 04-23-2025 End: 37-47-1618Tkrukg flowsheetLisa Aichholz BANK ADVISOR Work Phone: [facility] FMStart: 04-23-2025 End: 09-31-1400Stnttq outpatient visit 15 minutesLisa Garciaivette BANK ADVISOR Work Phone: [facility] FMComment on above:Primary hypertension (Primary Dx); Anxiety; Chronic rhinitisStart: 04-23-2025 End: 27-14-6400ktqhoaltijRGEG AICHHOLZNot AvailableStart: 03-13-2025 End: 12-40-4620Elxwet flowsheetRylee [facility] Work Phone: [facility]WS DERMStart: 03-13-2025 End: 09-15-6353Ibmjut flowsheetRylee [facility] Work Phone: [facility] SWS DERMStart: 03-13-2025 End: 73-85-5876Thphmk outpatient new 30 minutesRylee [facility] Work Phone: NOYL SWS DERMComment on above:Lichen simplex chronicus (Primary Dx); Neoplasm of unspecified behavior of bone, soft tissue, and skinStart: 03-13-2025 End: 59-09-5059hvbpbsapjzGIZJF NORTHEIMNot AvailableStart: 03-06-2025 End: 12-07-6403Ywjkcy flowsheetRosemary Lulukayz BANK ADVISOR Work Phone: [facility] FMStart: 03-06-2025 End: 87-07-9610Oayznb flowsheetRosemary Lawsonaaron BANK ADVISOR Work Phone: [facility] FMStart: 03-06-2025 End: 16-31-2301Tbvsmt outpatient visit 25 minutesLi Miguel Angel BANK ADVISOR Work Phone: [facility] CWM FMComment on above:Hypertension, unspecified type (CMS/HCC) (Primary Dx); Anxiety; Neoplasm of uncertain behaviorStart: 03-06-2025 End: 01-39-6031yitpgffttlZFZJ AICHHOLZNot AvailableStart: 02-20-2025 End: 56-41-1171yaejwwroosZIBH AICHHOLZNot AvailableStart: 01-30-2025 End: 89-35-6591jcybvyfbuvLybt J Aichholz Work Phone: [facility] Work Phone: Start: 01-30-2025 End: 81-06-1517Zjsybtag ReferredLisa Aichholz Work Phone: [facility] [place] Work Phone: Start: 01-30-2025 End: 02-66-9144azxxmmkryzMvuffdhen [facility] Work Phone: Start: 01-30-2025 End: 80-64-5928Ybtghwm encounter procedureC[facility] [place] Work Phone: Start: 07-26-2024 End: 98-66-7933Pgfrylldt Result EncounterLisa Aichholz BANK ADVISOR Work Phone: noms External Department UnsolicitedStart: 07-26-2024 End: 51-04-4765Ajquodtzo Result EncounterLisa Aichholz BANK ADVISOR Work Phone: noms External Department UnsolicitedStart: 07-23-2024 End: 43-81-9367Rpeqsi flowsheetLisa Aichholz BANK ADVISOR Work Phone: noms CWM FMStart: 07-23-2024 End: 52-38-8024Aaqbme flowsheetLisa Aichholz BANK ADVISOR Work Phone: noms CWM FMStart: 07-23-2024 End: 49-78-9985Vynsuvgml Result EncounterLisa Aichholz BANK ADVISOR Work Phone: noms External Department UnsolicitedStart: 07-23-2024 End: 20-16-3114Rymbctg encounter procedureLisa Aichholz BANK ADVISOR Work Phone: noms CWM FMComment on above:Encounter for subsequent annual wellness visit (AWV) in Medicare patient (Primary Dx); Gastroesophageal reflux disease without esophagitis; Age-related osteoporosis without current pathological fracture (CMS/HCC); Mixed urge and stress incontinence; Needs flu shot; Subacute frontal sinusitisStart: 07-23-2024 End: 99-49-8361dpebppjykoQGUT AICHHOLZNot AvailableStart: 04-05-2023 End: 38-57-8627Lyehxtf encounter procedureNP-C Brenda Majano Work Phone: [facility] [place] Work Phone: Start: 04-05-2023 End: 65-39-4311macbeyjhhhTL-C Brenda Majano Work Phone: [facility] Work Phone: Start: 41-25-3148Ohqmrz outpatient new 20 minutes Brenda MajanoFPG Urgent Care ClydeStart: 06-03-2022 End: 18-85-5517rfjkbhntdcJEY ROSEMARY AICHHOLZFacility:T1Subkm: 05-31-2022 End: 42-11-5556succpypugdTQG ROSEMARY AICHHOLZFacility:H1 Procedures DateProcedureProcedure DetailPerforming ClinicianStart: 42-81-8730UZQT / NAIL BIOPSYRylee Bren FARNSWORTH Work Phone: Start: 98-59-2730DDW UA (CLEAN/CATCH) MICROSCOPIC IF INDICATELisa Miguel Angel BANK ADVISOR Work Phone: Start: 64-17-0932RI TOMOSYNTHESIS SCREENING BILisa Miguel Angel BANK ADVISOR Work Phone: Start: 23-14-3590Z-ray of right footNP-Erika Majano Work Phone: Plan of Treatment DateCare ActivityDetailAuthorStart: 09-26-6710Ivuqtgtu identified in Urine by CultureUrine [facility] Hospitaltart: 60-78-6846Yioac cultureOhioHealth Dublin Methodist Hospitaltart: 10-22-2025Medicare Annual Wellness (AWV)Medicare Annual Wellness (AWV)[facility] HealthcareStart: 07-15-2025 End: 44-17-5111Drgmeyb encounter fchhuoxpk37/14/2025 10:00 AM EDT Office Visit [facility] [address] [place] [address] Rosemary Michelle, JUAN PABLO [address] [place] [address] [facility] C[facility] FMStart: 69-34-7505Dntmnyaaf vaccinationInfluenza Vaccine (#1)[facility] HealthcareStart: 04-23-2025 End: 13-15-2290Jrsgtel encounter procedureNOMS CWM FMComment on above:Primary hypertension (Primary Dx); AnxietyStart: 03-13-2025 End: 11-74-7826Yjbujrp encounter ciydhhujj76/12/2025 10:30 AM EDT Office Visit [facility] [address] [place] [phone] Rufino Correia PA [address] [place] [address] Neoplasm of uncertain behaviorNOMS SWS DERMComment on above:Neoplasm of uncertain behaviorStart: 03-06-2025 End: 91-73-8797Khdqrtu encounter haqsrounp15/05/2025 11:30 AM EDT Office Visit [facility] [address] [place] [address] Rosemary Michelle NP [address] [place] [address] Hypertension, unspecified type (CMS/HCC) (Primary Dx)N[facility] CWM FMComment on above:Hypertension, unspecified type (CMS/HCC) (Primary Dx)Start: 11-76-5790Gqdng cultureOhioHealth Dublin Methodist Hospitaltart: 01-30-2025 Bacteria identified in Urine by CultureUrine [facility] Hospitaltart: 07-23-2024 End: 862761-fxabuuhocuuzth D3 [Mass/volume] in Serum or PlasmaVitamin D 25 hydroxy Lab Routine Age-related osteoporosis without current pathological fracture (CMS/HCC) Expected: 07/23/2024 (Approximate), Expires: 07/23/2025[place] HealthcareComment on above:Expected: 07/23/2024 (Approximate), Expires: 07/23/2025Start: 07-23-2024 End: 87-47-9759AID W Auto Differential panel - BloodCBC and differential Lab Routine Gastroesophageal reflux disease without esophagitis Expected: 07/23/2024 (Approximate), Expires: 07/23/2025 Healthcare Work Phone: Comment on above:Expected: 07/23/2024 (Approximate), Expires: 07/23/2025Start: 07-23-2024 End: 90-32-2334Xucelewhwridt metabolic 2000 panel - Serum or PlasmaComprehensive metabolic panel Lab Routine Gastroesophageal reflux disease without esophagitis Age-related osteoporosis without current pathological fracture (CMS/HCC) Expected: 07/23/2024 (Approximate), Expires: 07/23/2025[place] HealthcareComment on above:Expected: 07/23/2024 (Approximate), Expires: 07/23/2025Start: 07-23-2024 End: 91-61-5206Vgugsmnxwb complete panel - UrineUrinalysis with reflex microscopic (clean catch) Lab Routine Mixed urge and stress incontinence Expe cted: 07/23/2024 (Approximate), Expires: 07/23/2025[facility] HealthcareComment on above:Expected: 07/23/2024 (Approximate), Expires: 07/23/2025Start: 07-23-2024 End: 40-72-9082Dwesuoh encounter ohtafmmxf73/22/2024 10:00 AM EDT Office Visit [facility] [address] [place] [address] Rosemary Michelle, JUAN PABLO [address] [place] [address] Gastroesophageal reflux disease without esophagitis (Primary Dx); Age-related osteoporosis without current pathological fracture (CMS/HCC); Mixed urge and stress incontinenceNOJD MCCARTY [facility] FMComment on above:Gastroesophageal reflux disease without esophagitis (Primary Dx); Age-related osteoporosis without current pathological fracture (CMS/HCC); Mixed urge and stress incontinenceStart: 10-02-2024Medicare Annual Wellness (AWV)Medicare Annual Wellness (AWV)[facility] HealthcareStart: 39-28-6037Ryujcinph vaccinationInfluenza Vaccine (#1)[facility] HospitalComprehensive metabolic 2000 panel - Serum or PlasmaSelect Medical Trihealth Rehabilitation HospitalDermatopathology exam Dermatopathology exam Pathology and Cytology Timed Neoplasm of unspecified behavior of bone, soft tissue, and skin Release Upon Ordering for 1 Occurrences starting 03/13/2025[facility] Healthcare Work Phone: comment on above:Release Upon Ordering for 1 Occurrences starting 03/13/2025MG Breast - bilateral DiagnosticBaptist Health Mar[facility] Hospital Immunizations Immunization DateImmunizationNotesCare ZcprcxdeOdjbqigc09-42-4620Pvvkgvbj trivalent influenza vaccine, adjuvanted, preservative freeLisa Aichholz BANK ADVISOR Work Phone: noBarnes-Jewish West County HospitalZyrsnvuyjf26-33-7338ujeavvcmm virus vaccine, unspecified formulationLisa Aichholz BANK ADVISOR Work Phone: [facility] HospitalQfvndpbrhs08-96-1569Bcroasczg, Seasonal, Quadrivalent, AdjuvantedLisa Aichholz BANK ADVISOR Work Phone: noBarnes-Jewish West County HospitalKoecwluebd89-65-6802xyupfkcnb virus vaccine, unspecified formulationLisa Aichholz BANK ADVISOR Work Phone: noBarnes-Jewish West County HospitalAmridmbkok39-29-4204Jknswnbsw, High-dose Seasonal, Quadrivalent, Preservative FreeLisa Aichholz BANK ADVISOR Work Phone: noBarnes-Jewish West County HospitalTzigzretkq90-89-0796Lrtdaojvr, Seasonal, Quadrivalent, AdjuvantedLisa Aichholz BANK ADVISOR Work Phone: [facility] HospitalUgepeqymsp77-32-3112Qmqwmcppw, High-dose Seasonal, Quadrivalent, Preservative FreeLisa Aichholz BANK ADVISOR Work Phone: [facility] HospitalFpywtkqyke16-86-8589Iylkjfawc, Seasonal, Quadrivalent, AdjuvantedLisa Aichholz BANK ADVISOR Work Phone: [facility] HospitalQeveqfmwbn83-24-7518htiytqn toxoid, reduced diphtheria toxoid, and acellular pertussis vaccine, adsorbedParamy Majano Other [place] [employer] Other 09-902241-64-0796kgouevz and diphtheria toxoids, adsorbed, preservative free, for adult use (5 Lf of tetanus toxoid and 2 Lf of diphtheria toxoid)[facility]12-10-2014influenza, seasonal, injectableLisa Aichholz BANK ADVISOR Work Phone: [facility] HospitalZveoqfezfn21-61-8146usccuzmtk virus vaccine, whole virusLisa Aichholz BANK ADVISOR Work Phone: [facility] Payers DatePayer CategoryPayerPolicy [id number]-pay2022Medicare (Managed Care)[employer] Member Subscriber Plan / Payer (Effective 2021-Present) Name: Melida Lyman Relation to Subscriber: Self Name: Melida Lyman Payer ID: Not on file Group ID: [id number] Type: Not on file Address: [facility] [address] [place] [id number] [id number] .[id number] [id number] .[id number] 2.16.840.1.252235.3.57[id number] 2.16.840.1.936082.3.57[id number] 2..0.1.578622.3.57[id number] 2.16.840.1.618233.3.57[id number] 2..0.1.736884.3.579.2.1259MedicareAnthem [facility] [id number] 2.0.1.4[id number] 2.0.1.354034.3.579.2.531 Social History DateTypeDetailFacilityTobacco smoking status NHISUnknown if ever smokedCleveland Clinic Lutheran Hospital Work Phone: Start: 15-37-8057Rpm Assigned At [facility] Systemtart: 12-27-2023 End: 28-44-8117Xsz Assigned At [facility] Other Start: 12-05-2023 End: 04-17-3601Orzogkf smoking status NHISNever smoked tobaccoNOMS Healthcare Start: 77-49-7124Nxzfudf use and exposureSmokeless tobacco non-userNOMS HealthcareStart: 01-17-2024 End: 96-48-0349Dmsbwzift beverage intakeLifetime non-drinker (finding)[facility] HealthcareStart: 12-27-2023 End: 16-16-9249Wxifccl of Social functionNOMS HealthcareStart: 75-24-4997Jbfqlte Commentcaffine: wagnere 2 daily and sodMarshfield Medical Center Beaver DamStart: 05-87-3409Zmg assigned at birthNot on [facility] Wilkerson CenterStart: 01-30-2025 End: 12-34-7648RjtCuurgi (finding)[facility] Hospitaltart: 28-56-8759AhwFfdigvCVSJ Healthcare Functional Status CwlzNnnmztzxolBhhzbbSaieavua32-33-8825Bpdozmvjb depression scale (GDS).short version [facility] Health ServicesZdlpgyocsp77-35-1047Ytdoczw Health Questionnaire 2 item (PHQ- 2) [Reported][facility] HospitalJndrxtapqj69-84-5998Ohm difficult have these problems made it for you to do your work, take care of things at home, or get along with other people?Not difficult at all 07/23/2024 10:21 AM EDT Nancy Clifford MA Not difficult at [facility] Clinical Notes 04-05-2023 to 07-28-2025 Note Date & ZvdrZqtdWjavxeiz48-76-8186 Evaluation note* Diagnosis Onset Date Resolution Status Admit Date Age-related osteoporosis without current pathological fracture [facility] 20[facility] 10:03amAMD (age-related macular degeneration), wetacute July 28, 2025 10:03amAnxietyacuteUp Health System 2024 10:03amBreast cancer screening by mammogramacuteBe[facility]20[facility] 10:03amEncounter for subsequent annual wellness visit (AWV) in Medicare patientacuteOctthe medical center 2024 10:03am HTN (hypertension)acuteOctober 2024 10:03amUTI symptomsacuteUp Health System 2024 10:03am [facility] Work Phone: [phone] 808-461507-23-2025 History of Present illness Narrative* Rosemary Michelle NP - 04/23/2025 10:10 AM EDTAssociated Problem(s): Chronic rhinitis Cont allergy meds and nasal spray Sinuses not a new finding * NANCY CLIFFORD - 04/23/2025 9:20 AM EDT Buspar 5mg- she takes it once daily/PRN makes her sleepy she does feel better more relax she did not have any GI issues. With the tiredness she feels that she had gain 3lbs with not moving much. Spot on left side of head- benign still bothers her * Rosemary Michelle, JUAN PABLO - 04/23/2025 9:20 AM EDT Melida Lyman [...] >150/90 let office know documented in this encounterHannibal Regional HospitalJqicyjywvc31-82-4279 Instructions* Patient Instructions* Rosemary Michelle NP - 04/23/2025 9:20 AM EDT Check BP a few times a week, if >150/90 consistently call office documented in this encounterHannibal Regional HospitalKfikpkdtxy05-33-0779 History of Present illness Narrative* Rufino CorreiaJAVAD - 03/13/2025 10:30 AM EDT Images from the original note were not included. Lesions: Location: left temporal scalp Duration: 6 weeks Quality: denies pain, denies itch, denies bleeding Associated symptoms: red, rough, aggravated by glasses Treatments: mupirocin 2% ointment BID from PCP New patient, referred by Rosemary Michelle APRN-MUSA All pertinent medical history, medications, and allergies [...] SOFT TISSUE, AND SKIN Left Temporal Scalp Manter papule Lesion biopsy Type of biopsy: tangential [...] Visit: pending biopsy results documented in this encounterHannibal Regional HospitalCvhcsmiljr86-32-0864 History of Present illness Narrative* Rosemary Michelle NP - 03/06/2025 1:05 PM EDTAssociated Problem(s): Neoplasm of uncertain behavior Refer to derm * Rosemary Michelle NP - 03/06/2025 1:05 PM EDTAssociated Problem(s): Anxiety Add buspar Advised how to take, and side effects Fu in 6 weeks * NANCY CLIFFORD - 03/06/2025 11:30 AM EDT 150/70 at [...] - 03/06/2025 6:47 AM EDTAssociated Problem(s): Hypertension ([facility] Will try treating for anxiety Only have her check BP evening time 3-4 days per week Fu in 6 weeks documented in this encounterHannibal Regional HospitalCofiijceor55-10-3495 Instructions* Patient Instructions* Rosemary Michelle NP - 03/06/2025 11:30 AM EDT 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: for 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 in 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, [place] Buspar (buspirone) 5mg pill every 12 hours as needed for anxiety Check blood pressures 4 evenings per week documented in this encounterHannibal Regional HospitalKksjhgdrdh70-49-9027 Evaluation note* Diagnosis Onset Date Resolution Status Admit Date Sinusitis acuteMay 2024 10:41amIncreased frequency of urinationnoneactiveMay 2024 10:41am [facility] Work Phone: 1(855) 666-845310-22-2024 History of Present illness Narrative* Rosemary Michelle NP - 07/23/2024 10:55 AM EDTAssociated Problem(s): Encounter for subsequent annual wellness visit (AWV) in Medicare patient Reviewed Ht/Wt/BMI Recommend eye exam yearly Recommend dental exams twice a year Balance work/leisure activities Exercises is recommended most days of the week (appropriate as chronic conditions allow) Follow up yearly and prn * NANCY CLIFFORD - 07/23/2024 10:00 AM EDT Sinus/allergies- couple weeks now. Allergy medication and nasal spray is not helping. Pain in the frontal lobe, stuffy/runny nose, some green mucus, phlegm in the back of the throat, pressure and headaches. Pt had mammogram done today Pt will need a refill on her cream for lichens * Rosemary Garciaivette, BANK ADVISOR - 07/23/2024 10:00 AM EDT Images from [...] Hospitalizations in the last year: none Specialist: [facility] ([facility]), dentist: in between , [...] Relevant Orders Flu vaccine, trivalent, adjuvanted, PF ([id number]) (Fluad trivalent single dose syringe) Subacute frontal sinusitis Relevant Medications azithromycin (Zithromax) 250 MG tablet Encounter for subsequent annual wellness visit (AWV) in Medicare patient Reviewed Ht/Wt/BMI Recommend eye exam yearly Recommend dental exams twice a year Balance work/leisure activities Exercises is recommended most days of the week (appropriate as chronic conditions allow) Follow up yearly and prn documented in this encounterHannibal Regional HospitalLtmudpvftw07-80-2276 Evaluation note* Encounter Date Diagnosis Assessment Notes [...] of your right shoe. Follow-up with your dope firer if no improvement in 5 to 7 days Apr,OtherCalcaneal Spur material was printed [employer] Other Evaluation noteNo assessment information available [facility] Work Phone: Evaluation note* Diagnosis Dysuria- [...] 2024 10:41amIncreased frequency of urinationnoneactiveMay 2024 10:41am [facility] Work Phone: Evaluation note* Diagnosis Dysuria- [...] tissue, and skin documented in this encounter [facility] HealthcareEvaluation note* Diagnosis Dysuria- Primary Trapezius muscle [...] unspecified Chronic rhinitis documented in this encounter [facility] HealthcareEvaluation note* Diagnosis Onset Date Resolution Status Admit Date Age-related osteoporosis without current pathological fracture acuteOctober 2024 10:03amAMD (age-related macular degeneration), wetacute July 28, 2025 10:03amAnxietyacuteOctober 2024 10:03amBreast cancer screening by mammogramacuteOct2024 10:03amEncounter for subsequent annual wellness visit (AWV) in Medicare patientacuteOctober 2024 10:03am HTN (hypertension)acuteOctober 2024 10:03amUTI symptomsacuteOctthe medical center 2024 10:03am [facility] Work Phone: History general Narrative - Reported* Type Description Date Medical History GERD (gastroesophageal reflux di sease) Medical HistorySeasonal allergic rhinitisSurgical HistoryC sectionSurgical Historyhysterectomy [employer] Other Reason for referral (narrative)No reason for referral information availableLancaster Municipal Hospital Work Phone: Summary Purpose Family History No Family History [...] UTI symptoms July 28, 2025 1 0:03am Chief Complaint Admit Date Poss UTI, sinus pressure January 30, 2025 1 0:41am Reason for Visit Admit Date Sinusitis January 30, 2025 10:41a m Increased frequency of urination January 10:41am Chief Complaint Admit Date Medicare Wellness July 28, 2025 1 0:03am Additional Source Comments INFORMATION SOURCE (unrecogn ized section and content) DATE CREATED AUTHOR 06/07/2022 [facility] DATE CREATED AUTHOR AUTHOR'S ORGANIZ ATION 04/24/2025 [facility] DATE CREATED AUTHOR AUTHOR'S ORGANIZ ATION 07/31/2025 [facility] Care Teams (unrecognized sec tion and content) Team Status: Inactive Member Role Status Dates Brenda Majano NP-Erika Attending Provider Active Team MemberRelationshipSpecialtyStart DateEnd Date Rosemary Michelle NP [address] [place] [address] PCP - Tyron CA01/31/24 Unallocated, Noms Provider, [address] [place] [address] PCP - GeneralFamily Afzklauk55/15/24 Rosemary Michelle NP [address] [place] [address] Nurse PractitionerFamily Medicine12/05/23Team MemberRelationshipSpecialtyStart DateEnd Date Rosemary Michelle NP [address] [place] [address] PCP - Tyron MCMAHON01/31/24 Unallocatskyler, Maynor Bragg MD [address] [place] [address] PCP - GeneralFamily Ohjcwocz42/15/24 Rosemary Michelle NP [address] [place] [address] Nurse PractitionerLakeville Hospital Medicine12/05/23Team MemberRelationshipSpecialtyStart DateEnd Date Rosemary Michelle NP [address] [place] [address] PCP - Tyron MCMAHON01/31/24 Unallocated, [place] [address] [place] [address] PCP - GeneralFamily Epuqxynq04/15/24 oRsemary Michelle NP [address] [place] [address] Nurse PractitionerMontgomery County Memorial Hospitally Medicine12/05/23 Team Status: Active Member Role Status Dates Rosemary Michelle Primary Care Provider Active Team Status: Inactive Member Role Status Dates Rosemary Michelle Primary Care Provider Active Sta rt: January 30, 2025 End: January 30Varsha Duron ProviderActiveStart: January 30, 2025 End: January 30, 2025Team MemberRelationshipSpecialtyStart DateEnd Date Rosemary Michelle NP [address] [place] [address] PCP - yTron CA01/31/24 Simone Lovelace MD [address] [place] [address] PCP - GeneralLakeville Hospital Amlgslfp68/31/24 Rosemary Michelle NP [address] [place] [address] Nurse Practitionermily Medicine12/05/23Team MemberRelationshipSpecialtyStart DateEnd Date Rosemary Michelle NP [address] [place] [address] PCP - Tyron CA01/31/24 Simone Lovelace MD [address] [place] [address] PCP - GeneralFamily Niscwelc55/31/24 Rosemary Michelle NP [address] [place] [address] Nurse PractitionerFamily Medicine12/05/23Team MemberRelationshipSpecialtyStart DateEnd Date Rosemary Michelle NP [address] [place] [address] PCP - Tyron MCMAHON01/31/24 Simone Lovelace MD [address] [place] [address] PCP - [facility] Stxwuyia38/31/24 Rosemary Michelle NP [address] [place] [address] Nurse PractitionerNorthside Hospital Cherokee12/05/23Team MemberRelationshipSpecialtyStart DateEnd Date Rosemary Michelle NP [address] [place] [address] PCP - Tyron CA01/31/24 Simone Lovelace MD [address] [place] [address] PCP - [facility]08/01/24 Rosemary Michelle NP [address] [place] [address] Nurse PractitionerNorthside Hospital Cherokee12/05/23Team MemberRelationshipSpecialtyStart DateEnd Date Rosemary Michelle NP [address] [place] [address] PCP - Tyron MCMAHON01/31/24 Simone Lovelace MD [address] [place] [address] PCP - GeneralL[facility]ville Hospital Ulzhgavm27/31/24 Rosemary Michelle NP [address] [place] [address] Nurse PractitionerNorthside Hospital Cherokee12/05/23Team MemberRelationshipSpecialtyStart DateEnd Date Rosemary Michelle NP [address] [place] [address] PCP - Tyron MCMAHON01/31/24 Simone Lovelace MD [address] [place] [address] PCP - [facility]08/01/24 Rosemary Michelle NP [address] [place] [address] Nurse PractitionerNorthside Hospital Cherokee12/05/23 Team Status: Active Member Role/Relationship Status Dates Rosemary Michelle NP-C Primary Care Provider Active Team Status: Inactive Member Role/Relationship Status Dates Rosemary Michelle NP-C Primary Care Provider Active Start: July 28, 2025 End: July 28, 2025Rosemary Michelle NP-CAttending ProviderActiveStart: July 28, 2025 End: July 28, 2025Team MemberRelationshipSpecialtyStart DateEnd Date Rosemary Michelle NP [address] [place] [address] PCP - Tyron MCMAHON01/31/24 Unallocated, Noms MD [address] [place] [address] PCP - [facility] Yyvpjaem55/ Simone Lovelace MD [address] [place] [address] PCP - GeneralLakeville Hospital Cdrgpsum68/31/24 Rosemary Michelle NP Nurse PractitionerLakeville Hospital Medicine12/05/23 Team Status: Inactive Member Role/Relationship Status Dates Rosemary Michelle NP-Erika Primary Care Provider Active Start: July 28, 2025 End: July 28, 2025MAGO CarrollCAtadventhealth littleton ProviderActiveStart: July 28, 2025 End: July 28, 2025 Team Status: Inactive Member Role/Relationship Status Dates MYRTLE Carroll Attending Provider Active Start: July 28, 2025 End: July 28, 2025 Goals (unrecognized section and content) Goals may be documented in a n alternate sectionNo InformationGoals may be documented in an alternate sectionGoals may be documented in an alternate sectionGoals may be documented in an alternate sectionGoals may be documented in an alternate section REASON FOR VISIT (unrecogniz ed section and content) ReasonCommentsHypertensionReasonCommentsSuspicious Skin LesionSpecialtyDiagnoses / ProceduresReferred By ContactReferred To ContactDermatology Diagnoses Neoplasm of uncertain behavior Procedures [place] OFFICE/OUTPAT[facility] 60 MINUTES Rosemary Michelle NP [address] [place] [address] Phone: tel: fax: Tram Martínez MD [address] [facility] [address] [place] [address] Phone: tel: fax: Referral IDStatusReasonStart DateExpiration DateVisits RequestedVisits [id number] Specialty Services Required [id number] FOR RECORDS PERTAINING TO PATIENTS WHO ARE [...] BE BASED ON THE PRIMARY CLINICAL RECORDS. [facility], [facility]. provides no warranty or guarantee of the accuracy or completeness of information in this document.
== END 2025-08-01 09:15 | disposition home or self-care (01) ==
LOC: MAMMO 09:14
PROVIDERS: PCP Nurse Practitioner; Visit Provider Nurse Practitioner
DX: Z12.31 Encounter for screening mammogram for malignant neoplasm of breast (principal); Z80.1 Family history of malignant neoplasm of trachea, bronchus and lung
CPT/HCPCS: 77063; 77067